=== PATIENT | male | born 1945 | race Caucasian/White ===

== ENCOUNTER → 2017-01-24 | Outpatient (CLI) | payer MEDICARE, OTHER ==
--- NOTE | 2017-01-25 08:14 | XR ---
EXAMINATION TYPE: XR ribs LT w pa chest xray DATE OF EXAM: 01/24/2017 1:58 PM COMPARISON: NONE HISTORY: Pain TECHNIQUE: Single view of the chest 4 views of the ribs are submitted. FINDINGS: Scattered senescent parenchymal changes are noted. No Evidence for pneumothorax. No eviden ce for focal contusion. Mediastinal structures are midline. Evaluation of the ribs fails to demonst rate evidence for displaced rib fracture or secondary sign of rib fracture. IMPRESSION: 1. Chronic parenchymal changes. 2. No evidence for acute displaced left-sided rib fracture.
== END | disposition home or self-care (01) ==
LOC: RADXRYALE 13:33
PROVIDERS: ATTEND Internal Medicine
DX: S23.41XA Sprain of ribs, initial encounter (principal)

== ENCOUNTER → 2017-09-28 | Outpatient (CLI) | payer MEDICARE, OTHER ==
--- NOTE | 2017-09-28 10:37 | XR ---
Bilateral orbits HISTORY: Vertigo, R 42, worked with metal, pre-MRI 3 views of the orbits No radiopaque foreign body evident within the orbits. Bone mineralization is maintained. IMPRESSION: No counterindication to MRI is evident.
--- NOTE | 2017-09-28 11:55 | US ---
EXAMINATION TYPE: US carotid duplex BILAT DATE OF EXAM: 09/28/2017 COMPARISON: NONE CLINICAL HISTORY: R42 VERTIGO. Vertigo EXAM MEASUREMENTS: RIGHT: Peak Systolic Velocity (PSV) cm/sec ----- Right CCA: 88.9 ----- Right ICA: 84.8 ----- Right ECA: 86.2 ICA/CCA ratio: 1.0 RIGHT: End Diastole cm/sec ----- Right CCA: 26.1 ----- Right ICA: 19.5 ----- Right ECA: 15.5 LEFT: Peak Systolic Velocity (PSV) cm/sec ----- Left CCA: 92.9 ----- Left ICA: 82.2 ----- Left ECA: 86.2 ICA/CCA ratio: 0.9 LEFT: End Diastole cm/sec ----- Left CCA: 28.8 ----- Left ICA: 30.2 ----- Left ECA: 14.1 VERTEBRALS (direction of flow): Right Vertebral: Antegrade Left Vertebral: Antegrade Rhythm: Normal Grayscale images show no significant focal plaque in carotid bulbs. Velocity measurements and ratios in visualized portion of both internal carotid arteries is within normal limits. IMPRESSION: No hemodynamically significant stenosis is seen in either internal carotid artery.
--- NOTE | 2017-09-28 16:38 | MR ---
MR brain without contrast HISTORY: Vertigo Multiplanar multisequence imaging through the brain No comparisons There is no restricted diffusion. Cortical atrophy is present. No hemorrhage or hydrocephalus. No mas s effect or midline shift. Periventricular white matter shows confluent and scattered foci of hyperin tensity on inversion recovery and T2-weighted sequences. There are too numerous to count lesions pres ent. Cerebellopontine angles, corpus callosum, pituitary, cervical medullary junction are within norm al limits. Some mild mucoperiosteal thickening suspected within the maxillary and frontal sinuses, et hmoid air cells. There are normal vascular flow voids. Orbits show symmetric appearance. IMPRESSION: Nonspecific white matter demyelination likely due to chronic small vessel ischemic change . Age-related atrophy. Mild sinus disease.
== END | disposition home or self-care (01) ==
LOC: RADMRIMAIN 10:00
PROVIDERS: ATTEND Psychiatry & Neurology Neurology
DX: G31.1 Senile degeneration of brain, not elsewhere classified (principal); R42 Dizziness and giddiness; Z01.818 Encounter for other preprocedural examination
CPT/HCPCS: 70200; 70551; 93880

== ENCOUNTER 2018-01-18 09:13 | Day surgery (SDC) | payer MEDICARE, OTHER ==
[2018-01-12 12:45] VITALS: BMI 27.2
[~2018-01-18 09:13] MED LIST: ALPRAZolam 0.25 MG TAB PO PRN; ALPRAZolam 0.5 MG TAB PO PRN; ATORVASTATIN 80 MG TAB PO STA; NITROGLYCERIN SL TABS 0.4 MG TAB SUBLINGUAL PRN; SODIUM CHLORIDE 0.9% 1,000 ML in EMPTY BAG 1 BAG IV ONE
[2018-01-18 09:50] VITALS: RESP 16; TEMP 98.1
[2018-01-18 10:07] LABS: Basophils % (A) 0 %; Eosinophils # (A) 0.1 k/uL (0-0.7); Eosinophils % (A) 4 %; HCT 37.1 % (39.0-53.0); HGB 12.7 gm/dL (13.0-17.5); Lymphocytes # (A) 0.9 k/uL (1.0-4.8); Lymphocytes % (A) 26 %; MCH 29.2 pg (25.0-35.0); MCHC 34.3 g/dL (31.0-37.0); MCV 85.1 fL (80.0-100.0); Mean Platelet Volume 9.4; Monocytes # (A) 0.3 k/uL (0-1.0); Monocytes % (A) 8 %; Neutrophils % (A) 60 %; Platelet Count 111 k/uL (150-450); RBC 4.36 m/uL (4.30-5.90); RDW 15.5 % (11.5-15.5); WBC 3.4 k/uL (3.8-10.6)
[2018-01-18 10:18] LABS: Anion Gap 10 mmol/L; Blood Urea Nitrogen 19 mg/dL (9-20); Calcium 9.2 mg/dL (8.4-10.2); Carbon Dioxide 24 mmol/L (22-30); Chloride 107 mmol/L (98-107); Glucose 93 mg/dL (74-99); Potassium 4.5 mmol/L (3.5-5.1); Sodium 141 mmol/L (137-145)
[2018-01-18] MEDS ORDERED: LIDOCAINE 2% INJ 20 MG/ML (20 ML MDV) ONE (10:57)
[2018-01-18] MEDS ORDERED: fentaNYL (PF) 50 MCG/ML 2 ML AMP ONE (10:57)
[2018-01-18] MEDS ORDERED: MIDAZOLAM 2 MG/2 ML VIAL ONE (10:57)
[2018-01-18] MEDS ORDERED: MIDAZOLAM 2 MG/2 ML VIAL IVP ONE (11:22)
[2018-01-18] MEDS ORDERED: fentaNYL (PF) 50 MCG/ML 2 ML AMP IVP ONE (11:23)
[2018-01-18] MEDS ORDERED: LIDOCAINE 2% INJ 20 MG/ML SQ ONE (11:25)
[2018-01-18] MEDS ORDERED: IOPAMIDOL-370 50ML BTL INJ ONE (11:39)
[2018-01-18] MEDS ORDERED: IOPAMIDOL-370 125ML BTL INJ ONE (11:39)
[2018-01-18] MEDS ORDERED: RX INFO: IV CONTRAST WAS GIVEN 1 EACH MISC MISCELLANE PRN (11:56)
[2018-01-18] MEDS ORDERED: SODIUM CHLORIDE 0.9% 1,000 ML IV SCH (12:00)
--- NOTE | 2018-01-18 13:38 | CC ---
CARDIAC CATHETERIZATION REPORT Mr. Mast is a 72-year-old gentleman who was seen by Dr. Martines. He was advised cardiac catheterization with the symptoms of chest pain and positive stress test. The patient also has a history of cardiomyopathy. PROCEDURE DETAILS: Right groin was prepped and draped in the usual manner and the skin was infiltrated with 2% Xylocaine. The right femoral artery was entered using Seldinger technique. A #6-Sinhala sheath was placed in. Selective coronary angiography was then performed in multiple projections and the left ventriculography was performed. Patient tolerated the procedure well. HEMODYNAMICS: Left ventricular end-diastolic pressure is 8-10 mmHg prior to angiography. No gradient is noted across the aortic valve. SELECTIVE CORONARY ANGIOGRAPHY: Left main coronary artery is normal and patent. LAD is a good caliber blood vessel and gives rise to 2 small size diagonal branch. LAD and its branches are normal. Circumflex coronary artery is normal. The ostial circumflex coronary artery has about 60% stenosis right near the origin from the left main and it has gotten limited distribution. There is average size ramus branch is noted which is normal. Right coronary artery has mild irregularity and gives rise to the posterior descending artery. Left ventriculography revealed ejection fraction of 45% to 50%. IMPRESSION: There is a 60% stenosis in the ostial circumflex coronary artery with a limited distribution. In view of that, maximum medical treatment is recommended. The LAD and right coronary arteries are normal. Left ventriculography revealed ejection fraction of 40-45%. SEDATION: Moderate sedation was used for 18 minutes. MMODL / IJN: [id number] /
[2018-01-18 16:54] VITALS: BP 106/72; PULSE 62
== END 2018-01-18 17:00 | disposition home or self-care (01) ==
LOC: CATHCVL 09:13
PROVIDERS: ATTEND Internal Medicine Cardiovascular Disease
DX: I25.10 Atherosclerotic heart disease of native coronary artery without angina pectoris (principal); F17.290 Nicotine dependence, other tobacco product, uncomplicated; Z82.49 Family history of ischemic heart disease and other diseases of the circulatory system; Z79.82 Long term (current) use of aspirin; Z79.899 Other long term (current) drug therapy; Z88.1 Allergy status to other antibiotic agents
CPT/HCPCS: 93458; 80048; 85025; C1760; C1894; C1769; J2001; J2250; J3010; Q9967 ×2

== ENCOUNTER → 2018-06-02 | Outpatient (CLI) | payer MEDICARE | END | disposition home or self-care (01) | LOC: LABWHC1 09:17 | PROVIDERS: ATTEND Otolaryngology | DX: H93.3X9 Disorders of unspecified acoustic nerve (principal); H93.19 Tinnitus, unspecified ear; H91.90 Unspecified hearing loss, unspecified ear; H81.49 Vertigo of central origin, unspecified ear | CPT/HCPCS: 36415; 82565; 84520 ==

== ENCOUNTER 2018-06-15 09:15 | Day surgery (SDC) | payer MEDICARE ==
[2018-06-12 14:28] VITALS: BMI 26.5
[~2018-06-15 09:15] MED LIST changes: -ALPRAZolam 0.25 MG TAB PO PRN; -ALPRAZolam 0.5 MG TAB PO PRN; -ATORVASTATIN 80 MG TAB PO STA; -NITROGLYCERIN SL TABS 0.4 MG TAB SUBLINGUAL PRN; +SODIUM CHLORIDE 0.9% 1,000 ML IV SCH; -SODIUM CHLORIDE 0.9% 1,000 ML in EMPTY BAG 1 BAG IV ONE
[2018-06-15 11:26] VITALS: BP 131/75; RESP 16; TEMP 97.6
[2018-06-15] MEDS ORDERED: SODIUM CHLORIDE 0.9% 500 ML IV ONE (11:26)
[2018-06-15 13:03] VITALS: PULSE 60
--- NOTE | 2018-06-15 13:14 | P.PCN ---
Preoperative Diagnosis: Diagnosis Recurrent dizzy spells and presyncope despite reducing the dose of Cardura to 2 mg a day Also on Imdur 30 mg by mouth daily Twelve-lead ECG shows sinus rhythm normal MA narrow QRS normal ST segments heart rate 55 beats a minute His table test Baseline blood pressure 126/73 mmHg Baseline heart rate 54 beats a minute patient was tilted upright at an angle of 70 per protocol. There was an immediate drop in his blood pressure 105/71 mmHg with a mild increase in heart rate in the 76 beats a minute thereafter there was a gradual progressive decline in his blood pressure. The lowest blood pressure recorded was in the mid 70s. No significant change in heart rate. Remained in sinus rhythm in the 70s Very was laid supine his blood pressure increased to 100/59 mmHg heart rate improved went back to his baseline in the mid 50s Impression Orthostatic hypotension syndrome Suggest Reduce Cardura to 1 mg by mouth daily If his symptoms continue Imdur should be discontinued Minimize or avoid vasodilators
== END 2018-06-15 13:54 | disposition home or self-care (01) ==
LOC: CATHEP 09:15
PROVIDERS: ATTEND Internal Medicine Clinical Cardiac Electrophysiology
DX: I95.1 Orthostatic hypotension (principal); R00.1 Bradycardia, unspecified
CPT/HCPCS: 93660

== ENCOUNTER → 2018-06-15 | Outpatient (CLI) | payer MEDICARE | END | disposition home or self-care (01) | LOC: RADMRIMAIN 09:00 | PROVIDERS: ATTEND Otolaryngology | DX: Z53.9 Procedure and treatment not carried out, unspecified reason (principal) ==

== ENCOUNTER → 2018-07-19 | Outpatient (CLI) | payer MEDICARE ==
--- NOTE | 2018-07-19 22:30 | MR ---
EXAMINATION TYPE: MR brain and iac wo/w con DATE OF EXAM: 07/19/2018 COMPARISON: Brain MRI 09/28/2018 HISTORY: 73-year-old male Left Hearing loss / Tinnitus TECHNIQUE: Multiplanar, multisequence images of the brain and brainstem were acquired before and aft er administration of 7.5 mL IV Gadavist. Diffusion weighted imaging was performed. Additional coned -down sequences through the internal auditory canals and posterior cranial fossa before and after IV contrast administration. FINDINGS: Diffusion weighted images demonstrate no evidence of an acute ischemic lesion in the brain. T2/FLAIR weighted sequences redemonstrate moderate burden of patchy bright white matter change within the subcortical, deep, and periventricular regions of both cerebral hemispheres. Midline structures demonstrate partially empty sella but otherwise normal morphology. The craniocerv ical junction is normal. There is redemonstrated mild to moderate generalized cerebral atrophy. The ventricles are of normal c aliber. There is no evidence of an acute intracranial hemorrhage, infarct, mass, mass-effect or an extra-axia l fluid collection. Major intracranial flow voids are intact. There is no cerebellopontine angle mass. The internal auditory canals are symmetric. Brainstem and skull base abnormalities are not seen. Post contrast images demonstrate no evidence of pathologic enhancement in the posterior cranial fossa or the internal auditory canals. There is no abnormal enhancement of the labyrinths. There is mild mucosal thickening within the ethmoid air cells and trace within the remainder of the p aranasal sinuses. Leftward nasal septal deviation. Orbits and globes are intact. IMPRESSION: 1. Mild to moderate cerebral atrophy. Similar chronic T2 bright white matter change with moderate ove rall burden likely related to chronic small vessel ischemic disease. No acute intracranial abnormalit y seen. 2. No specific abnormality on acoustic MRI. 4. Mild chronic pansinus disease.
== END | disposition home or self-care (01) ==
LOC: RADMRIMAIN 09:50
PROVIDERS: ATTEND Otolaryngology
DX: G31.9 Degenerative disease of nervous system, unspecified (principal); R90.89 Other abnormal findings on diagnostic imaging of central nervous system
CPT/HCPCS: 82565; 84520; 70553; 36415; A9585

== ENCOUNTER → 2021-02-04 | Outpatient (CLI) | payer MEDICARE | END | disposition home or self-care (01) | LOC: LABWHC1 16:42 | PROVIDERS: ATTEND Internal Medicine | DX: Z20.822 Contact with and (suspected) exposure to COVID-19 (principal); R50.9 Fever, unspecified; J02.9 Acute pharyngitis, unspecified | CPT/HCPCS: U0003; C9803; U0005 ==

== ENCOUNTER 2021-06-17 10:08 | Day surgery (SDC) | payer MEDICARE ==
[~2021-06-17 10:08] MED LIST changes: +ALPRAZolam 0.25 MG TAB PO PRN; +ALPRAZolam 0.5 MG TAB PO PRN; +ASPIRIN 325 MG TAB PO STA; +ATORVASTATIN 80 MG TAB PO STA; +HEPARIN SODIUM,PORCINE 10,000 UNIT in SODIUM CHLORIDE 0.9% 1,000 ML IRRIGATION PRN; +HEPARIN SODIUM,PORCINE 2,500 UNIT in SODIUM CHLORIDE 0.9% 250 ML IRRIGATION PRN; +NITROGLYCERIN SL TABS 0.4 MG TAB SUBLINGUAL PRN; -SODIUM CHLORIDE 0.9% 1,000 ML IV SCH; +SODIUM CHLORIDE 0.9% 1,000 ML in EMPTY BAG 1 BAG IV ONE
[2021-06-17 10:42] VITALS: RESP 18; TEMP 97.8
[2021-06-17 11:17] LABS: Anisocytosis Slight; HCT 39.5 % (39.0-53.0); HGB 13.8 gm/dL (13.0-17.5); MCH 32.1 pg (25.0-35.0); MCHC 34.8 g/dL (31.0-37.0); MCV 92.3 fL (80.0-100.0); Mean Platelet Volume 9.2; Platelet Count 184 k/uL (150-450); RBC 4.28 m/uL (4.30-5.90); RDW 18.8 % (11.5-15.5); WBC 2.8 k/uL (3.8-10.6)
[2021-06-17 11:30] LABS: African American GFR (CKD) >90 (>60 ml/min/1.73 sqM); Anion Gap 6 mmol/L; Blood Urea Nitrogen 25 mg/dL (9-20); Calcium 9.9 mg/dL (8.4-10.2); Carbon Dioxide 22 mmol/L (22-30); Chloride 106 mmol/L (98-107); Glucose 99 mg/dL (74-99); Non-African American GFR(CKD) 86 (>60 ml/min/1.73 sqM); Sodium 134 mmol/L (137-145)
[2021-06-17 11:40] LABS: Potassium 5.9 mmol/L (3.5-5.1)
[2021-06-17] MEDS ORDERED: MIDAZOLAM 2 MG/2 ML VIAL IVP ONE (11:52)
[2021-06-17] MEDS ORDERED: fentaNYL (PF) 50 MCG/ML 2 ML AMP IVP ONE (11:52)
[2021-06-17] MEDS: LIDOCAINE 1% INJ 10MG/ML (20 ML MDV) SQ ONE ×2 (11:55→12:04)
[2021-06-17] MEDS ORDERED: IOPAMIDOL-370 125ML BTL INJ ONE (12:15)
[2021-06-17] MEDS ORDERED: RX INFO: IV CONTRAST WAS GIVEN 1 EACH MISC MISCELLANE PRN (12:27)
[2021-06-17] MEDS ORDERED: SODIUM CHLORIDE 0.9% 1,000 ML IV SCH (12:30)
--- NOTE | 2021-06-17 12:34 | P.CARDCATH ---
Date of Procedure: 06/17/21 Preoperative Diagnosis: Worsening LV function, cardiomyopathyAnd known ischemic heart disease Postoperative Diagnosis: Data stable coronary artery disease with critical lesion involving the ostium of the circumflex. Description of Procedure: HISTORY:This is a 76-year-old gentleman with history of cardiomyopathy Ischemic heart disease who was in experiencing increasing shortness of breath with evidence of deterioration in LV functionA cardiac catheterization is requested to rule out progression of ischemic cardiac CONSENT:I have discussed the risks, benefits and alternative therapies for the above-mentioned procedure and for both sedation/analgesia as well as necessary blood product administration, if indicated, as they pertain to this patient. The patient has indicated understanding and acceptance of the risks and procedures discussed. PROCEDURE: Patient was brought to the lab in a fasting state. Patient was given some IV sedation. Abdomen soft, to do From the right radial approach. Right radial artery was entered, but the wire could not patient wants. The procedure was abandoned and was performed from the right groin approach. The right groin is infiltrated with lidocaine and right femoral artery was entered using Seldinger technique. A 6-Serbian catheter was left in place and selective coronary arteriography was performed. Patient tolerated the procedure well. Femoral angiogram was performed and Angio-Seal was applied for hemostasis. No immediate complications were noted and patient was transferred to [facility] in a stable condition Conscious Sedation: Versed 1mg Fentanyl 25 g Duration 35minutes HEMODYNAMICS: The aortic pressure is 110/70. Left ventricle end-diastolic pressure 8-10. No gradient across the aortic valve SELECTIVE CORONARY ARTERIOGRAPHY: LEFT MAIN: Normal length and free of occlusive disease THE LEFT ANTERIOR DESCENDING CORONARY ARTERY: Fairly caliber vessel with mild irregularities. It gives rise good-sized diagonal branch and septal branches. No critical lesion noted in the LAD system THE LEFT CIRCUMFLEX AND IS CORONARY ARTERY: Nondominant vessel with stenosis involving the ostium involving the origin of the OM branch also appears to be 70 to 80% and similar to what was in the past. THE RIGHT CORONARY ARTERY: This is a dominant vessel giving rise to good-sized PDA and PLV. Has ectatic areas and irregularities without any significant disease LEFT VENTRICULOGRAPHY: Not performed FINAL IMPRESSION: Stable coronary artery disease with critical lesion involving the ostium of the nondominant circumflex PLAN: Maximum medical therapy and this factor modification PROGNOSIS: Fair
[2021-06-17 12:47] LABS: Eosinophils # (M) 0.08 k/uL (0-0.7); Lymphocytes # (M) 0.76 k/uL (1.0-4.8); Monocytes # (M) 0.39 k/uL (0-1.0); Neutrophils # (M) 1.57 k/uL (1.3-7.7); Neutrophils % (M) 56 %; Nucleated Red Blood Cells 0 /100 WBC (0-0); Total Cells Counted 100
[2021-06-17 16:00] VITALS: BP 104/56; PULSE 58
== END 2021-06-17 17:05 | disposition home or self-care (01) ==
LOC: CATHCVL 10:08
PROVIDERS: ATTEND Internal Medicine Cardiovascular Disease
DX: I25.10 Atherosclerotic heart disease of native coronary artery without angina pectoris (principal)
CPT/HCPCS: 93458; 80048; 85025; 87635; J2250; J2001; J3010; Q9967

== ENCOUNTER 2021-07-22 03:38 | Observation (INO) | payer MEDICARE ==
[2021-07-22] MEDS ORDERED: SODIUM CHLORIDE 0.9% 1,000 ML IV STA (03:56)
[2021-07-22] MEDS ORDERED: IPRATROPIUM-ALBUTEROL 3 ML NEB INHALATION STA ×2 (03:56→06:45)
--- NOTE | 2021-07-22 04:00 | ED ---
SOB HPI - General Chief Complaint: Shortness of Breath Stated Complaint: Flu-like symptoms Time Seen by Provider: 07/22/21 03:43 Source: patient, EMS, old records reviewed Mode of arrival: EMS Limitations: no limitations - History of Present Illness Initial Comments: This is a 76-year-old male to the emergency room today. Patient presents today for evaluation of weakness shortness of breath. Persistent shortness of breath and weakness. Patient has otherwise no recent travel history sick contacts no fever cough or congestion. She also complaining of chest pain MD Complaint: shortness of breath, cough -: hour(s) Radiation: back Severity: moderate Quality: aching Consistency: constant Improves With: nothing Worsens With: coughing Context: recent URI Associated Symptoms: chest pain, cough, sputum production Treatments Prior to Arrival: none - Related Data Home Medications Medication Instructions Recorded Confirmed Aspirin [Adult Low Dose Aspirin EC] 81 mg PO DAILY 01/12/18 06/17/21 Atorvastatin [Lipitor] 20 mg PO DAILY 01/18/18 06/17/21 Citalopram Hydrobromide [CeleXA] 20 mg PO DAILY 01/18/18 06/17/21 Hydrocodone/Acetaminophen 1 each PO BID PRN 01/18/18 06/17/21 [Hydrocodone/Acetaminophen 10-300 mg] Ibuprofen 200 mg PO BID PRN 01/18/18 06/17/21 Isosorbide Mononitrate ER [Imdur] 30 mg PO DAILY 01/18/18 06/17/21 Multivit with Calcium,Iron,Min 1 cap PO DAILY 01/18/18 06/17/21 [Women's Multivitamin] Omeprazole 20 mg PO DAILY 01/18/18 06/17/21 Oxybutynin Chloride [Ditropan] 2 mg PO TID 01/18/18 06/17/21 Doxazosin [Cardura] 1 mg PO DAILY 06/15/18 06/17/21 Meclizine HCl 1 mg PO QID 06/15/18 06/17/21 Allergies Allergy/AdvReac Type Severity Reaction Status Date / Time clarithromycin [From Biaxin] Allergy purple Verified 06/17/21 10:26 blotches and skin peels latex Allergy Itching Verified 07/22/21 03:51 Sulfa (Sulfonamide Allergy Rash/Hives Verified 07/22/21 03:51 Antibiotics) Review of Systems ROS Statement: Those systems with pertinent positive or pertinent negative responses have been documented in the HPI. ROS Other: All systems not noted in ROS Statement are negative. Past Medical History Past Medical History: Hyperlipidemia, Osteoarthritis (OA), Pneumonia Additional Past Medical History / Comment(s): SOB, fatigue recently. Hx pneumonia when 17 yrs old. History of Any Multi-Drug Resistant Organisms: None Reported Additional Past Surgical History / Comment(s): Right arm surgery, colonoscopy. Past Anesthesia/Blood Transfusion Reactions: No Reported Reaction Past Psychological History: Depression Smoking Status: Current every day smoker Past Alcohol Use History: None Reported - Past Family History Mother Family Medical History: No Reported History General Exam Limitations: no limitations General appearance: alert, in no apparent distress Head exam: Present: atraumatic, normocephalic, normal inspection Eye exam: Present: normal appearance, PERRL, EOMI. Absent: scleral icterus, conjunctival injection, periorbital swelling ENT exam: Present: normal exam, mucous membranes moist Neck exam: Present: normal inspection. Absent: tenderness, meningismus, lymphadenopathy Respiratory exam: Present: normal lung sounds bilaterally. Absent: respiratory distress, wheezes, rales, rhonchi, stridor Cardiovascular Exam: Present: regular rate, normal rhythm, normal heart sounds. Absent: systolic murmur, diastolic murmur, rubs, gallop, clicks GI/Abdominal exam: Present: soft, normal bowel sounds. Absent: distended, tenderness, guarding, rebound, rigid Extremities exam: Present: normal inspection, full ROM, normal capillary refill. Absent: tenderness, pedal edema, joint swelling, calf tenderness Back exam: Present: normal inspection Neurological exam: Present: alert, oriented X3, CN II-XII intact Psychiatric exam: Present: normal affect, normal mood Skin exam: Present: warm, dry, intact, normal color. Absent: rash Course Vital Signs 07/22/21 07/22/21 07/22/21 03:48 04:10 04:50 Temperature 98.2 F Pulse Rate 82 77 Respiratory 20 25 H 18 Rate Blood Pressure 100/60 106/66 O2 Sat by Pulse 91 L 97 Oximetry 07/22/21 07/22/21 07/22/21 05:25 05:36 06:00 Temperature Pulse Rate 82 82 73 Respiratory 18 Rate Blood Pressure 101/63 O2 Sat by Pulse 92 L Oximetry - Reevaluation(s) Reevaluation #1: 07/22/21 04:06 Medical record is reviewed Reevaluation #2: 07/22/21 06:49 Patient's oxygen is worsened in the ER stay, Reevaluation #3: 07/22/21 06:49 Patient's breathing continues to worsen is borderline here in the emergency department Reevaluation #4: 07/22/21 06:49 Patient for antibiotics and breathing treatments as needed, still no care Medical Decision Making - Medical Decision Making 76 male DF for evaluation of shortness of breath history of pneumonia possible early pneumonia with multiple CBC abnormalities. Patient was admitted place on IV antibiotics repeat chest x-ray monitoring of pulse ox - Lab Data Result diagrams: 07/22/21 04:04 07/22/21 04:04 Lab Results 07/22/21 07/22/21 07/22/21 Range/Units 04:04 04:04 04:04 WBC 2.3 L (3.8-10.6) k/uL RBC 3.68 L (4.30-5.90) m/uL Hgb 11.7 L (13.0-17.5) gm/dL Hct 33.5 L (39.0-53.0) % MCV 90.9 (80.0-100.0) fL MCH 31.8 (25.0-35.0) pg MCHC 34.9 (31.0-37.0) g/dL RDW 18.8 H (11.5-15.5) % Plt Count 189 (150-450) k/uL MPV 8.5 Neutrophils % (Manual) 45 % Band Neuts % (Manual) 3 % Lymphocytes % (Manual) 35 % Monocytes % (Manual) 11 % Eosinophils % (Manual) 6 % Metamyelocytes % 1 % Neutrophils # (Manual) 1.10 L (1.3-7.7) k/uL Lymphocytes # (Manual) 0.81 L (1.0-4.8) k/uL Monocytes # (Manual) 0.25 (0-1.0) k/uL Eosinophils # (Manual) 0.14 (0-0.7) k/uL Metamyelocytes # (Man) 0.02 H (0) k/uL Nucleated RBCs 0 (0-0) /100 WBC Differential Comment Manual Slide Review Performed Toxic Granulation Present Hyperchromasia Slight Poikilocytosis Slight Poikilocytosis (manual Present Anisocytosis Slight Anisocytosis (manual) Present Ovalocytes Present Fragmented RBCs Present PT 10.1 (9.0-12.0) sec INR 0.9 (<1.2) APTT 25.3 (22.0-30.0) sec Sodium 136 L (137-145) mmol/L Potassium 4.0 (3.5-5.1) mmol/L Chloride 104 (98-107) mmol/L Carbon Dioxide 21 L (22-30) mmol/L Anion Gap 11 mmol/L BUN 13 (9-20) mg/dL Creatinine 0.84 (0.66-1.25) mg/dL Est GFR (CKD-EPI)AfAm >90 (>60 ml/min/1.73 sqM) Est GFR (CKD-EPI)NonAf 86 (>60 ml/min/1.73 sqM) Glucose 126 H (74-99) mg/dL Plasma Lactic Acid Abner (0.7-2.0) mmol/L Calcium 9.1 (8.4-10.2) mg/dL Magnesium 2.1 (1.6-2.3) mg/dL Total Bilirubin 0.4 (0.2-1.3) mg/dL AST 30 (17-59) U/L ALT 19 (4-49) U/L Alkaline Phosphatase 96 (38-126) U/L Lactate Dehydrogenase 630 H (313-618) U/L Troponin I (0.000-0.034) ng/mL C-Reactive Protein 1.9 H (<1.0) mg/dL NT-Pro-B Natriuret Pep pg/mL Total Protein 6.6 (6.3-8.2) g/dL Albumin 3.8 (3.5-5.0) g/dL 07/22/21 07/22/21 07/22/21 Range/Units 04:04 04:04 05:19 WBC (3.8-10.6) k/uL RBC (4.30-5.90) m/uL Hgb (13.0-17.5) gm/dL Hct (39.0-53.0) % MCV (80.0-100.0) fL MCH (25.0-35.0) pg MCHC (31.0-37.0) g/dL RDW (11.5-15.5) % Plt Count (150-450) k/uL MPV Neutrophils % (Manual) % Band Neuts % (Manual) % Lymphocytes % (Manual) % Monocytes % (Manual) % Eosinophils % (Manual) % Metamyelocytes % % Neutrophils # (Manual) (1.3-7.7) k/uL Lymphocytes # (Manual) (1.0-4.8) k/uL Monocytes # (Manual) (0-1.0) k/uL Eosinophils # (Manual) (0-0.7) k/uL Metamyelocytes # (Man) (0) k/uL Nucleated RBCs (0-0) /100 WBC Differential Comment Manual Slide Review Toxic Granulation Hyperchromasia Poikilocytosis Poikilocytosis (manual Anisocytosis Anisocytosis (manual) Ovalocytes Fragmented RBCs PT (9.0-12.0) sec INR (<1.2) APTT (22.0-30.0) sec Sodium (137-145) mmol/L Potassium (3.5-5.1) mmol/L Chloride (98-107) mmol/L Carbon Dioxide (22-30) mmol/L Anion Gap mmol/L BUN (9-20) mg/dL Creatinine (0.66-1.25) mg/dL Est GFR (CKD-EPI)AfAm (>60 ml/min/1.73 sqM) Est GFR (CKD-EPI)NonAf (>60 ml/min/1.73 sqM) Glucose (74-99) mg/dL Plasma Lactic Acid Abner 1.2 (0.7-2.0) mmol/L Calcium (8.4-10.2) mg/dL Magnesium (1.6-2.3) mg/dL Total Bilirubin (0.2-1.3) mg/dL AST (17-59) U/L ALT (4-49) U/L Alkaline Phosphatase (38-126) U/L Lactate Dehydrogenase (313-618) U/L Troponin I <0.012 (0.000-0.034) ng/mL C-Reactive Protein (<1.0) mg/dL NT-Pro-B Natriuret Pep 171 pg/mL Total Protein (6.3-8.2) g/dL Albumin (3.5-5.0) g/dL - EKG Data -: EKG Interpreted by Me (EKG shows sinus rhythm of 77. 136 QRS 94 QTC 45) - Radiology Data Radiology results: report reviewed (Chest x-ray shows atelectasis hard to tell of early developing pneumonia), image reviewed Disposition Clinical Impression: Weakness, Dehydration Disposition: ADMITTED IP TO THIS [facility] Condition: Fair Is patient prescribed a controlled substance at d/c from ED?: No Referrals: Keri Ley DO [Primary Care Provider] - 1-2 days
--- NOTE | 2021-07-22 04:20 | XR ---
EXAMINATION TYPE: XR chest 1V portable DATE OF EXAM: 07/22/2021 COMPARISON: 01/24/2017 HISTORY: Short of breath TECHNIQUE: FINDINGS: There is some mild atelectasis at both lung bases. Heart size is normal. There is no heart failure. There is poor inspiration. There are chest leads. IMPRESSION: There is some mild atelectasis at the lung bases increased compared to old exam.
[2021-07-22 04:36] LABS: Anisocytosis Slight; HCT 33.5 % (39.0-53.0); HGB 11.7 gm/dL (13.0-17.5); Hyperchromasia Slight; MCH 31.8 pg (25.0-35.0); MCHC 34.9 g/dL (31.0-37.0); MCV 90.9 fL (80.0-100.0); Mean Platelet Volume 8.5; Platelet Count 189 k/uL (150-450); Poikilocytosis Slight; RBC 3.68 m/uL (4.30-5.90); RDW 18.8 % (11.5-15.5); WBC 2.3 k/uL (3.8-10.6)
[2021-07-22 04:37] LABS: INR 0.9 (<1.2)
[2021-07-22 04:38] LABS: Partial Thromboplastin Time 25.3 sec (22.0-30.0); Prothrombin Time 10.1 sec (9.0-12.0)
[2021-07-22 04:43] LABS: ALT 19 U/L (4-49); AST 30 U/L (17-59); African American GFR (CKD) >90 (>60 ml/min/1.73 sqM); Albumin 3.8 g/dL (3.5-5.0); Alkaline Phosphatase 96 U/L (38-126); Anion Gap 11 mmol/L; Blood Urea Nitrogen 13 mg/dL (9-20); C Reactive Protein 1.9 mg/dL (<1.0); Calcium 9.1 mg/dL (8.4-10.2); Carbon Dioxide 21 mmol/L (22-30); Chloride 104 mmol/L (98-107); Glucose 126 mg/dL (74-99); LDH 630 U/L (313-618); Magnesium 2.1 mg/dL (1.6-2.3); Non-African American GFR(CKD) 86 (>60 ml/min/1.73 sqM); Sodium 136 mmol/L (137-145); Total Bilirubin 0.4 mg/dL (0.2-1.3); Total Protein 6.6 g/dL (6.3-8.2)
[2021-07-22 04:59] LABS: Band Neutrophils % 3 %; Eosinophils # (M) 0.14 k/uL (0-0.7); Lymphocytes # (M) 0.81 k/uL (1.0-4.8); Metamyelocytes # (M) 0.02 k/uL (0); Metamyelocytes % 1 %; Monocytes # (M) 0.25 k/uL (0-1.0); Neutrophils % (M) 45 %; Nucleated Red Blood Cells 0 /100 WBC (0-0); Total Cells Counted 200
[2021-07-22 05:03] LABS: Anisocytosis (M) Present; Ovalocytes Present; Poikilocytosis (M) Present; RBC Fragments Present
[2021-07-22 05:04] LABS: Toxic Granulation Present
[2021-07-22] MEDS ORDERED: ACETAMINOPHEN TAB 325 MG TAB PO PRN (06:45)
[2021-07-22] MEDS ORDERED: MORPHINE SULFATE 4 MG/ML SYRINGE IV PRN (06:45)
[2021-07-22] MEDS ORDERED: NALOXONE 0.4 MG/ML 1 ML VIAL IV PRN (06:45)
[2021-07-22] MEDS ORDERED: ONDANSETRON 4 MG/2 ML VIAL IVP PRN (06:45)
[2021-07-22] MEDS ORDERED: cefTRIAXone IN SWFI 1,000 MG/10 ML SYRINGE IVP STA (06:47)
[2021-07-22] MEDS ORDERED: LEVOFLOXACIN 500MG-D5W PMX 500 MG in DEXTROSE/WATER 1 100ML.BAG IVPB STA (06:48)
[2021-07-22] MEDS: SODIUM CHLORIDE 0.9% 1,000 ML IV SCH ×3 (07:16→21:09)
[2021-07-22] MEDS: IPRATROPIUM-ALBUTEROL 3 ML NEB INHALATION PRN ×3 (11:28→20:53)
[2021-07-22] MEDS: PANTOPRAZOLE 40 MG TABLET PO SCH (14:00)
[2021-07-22] MEDS ORDERED: methylPREDNISolone SOD SUCCI 125 MG/2 ML VIAL IV STA (15:22)
[2021-07-22] MEDS: HEPARIN SODIUM,PORCINE/PF 5,000 UNIT/0.5 ML SYRINGE SQ SCH ×2 (16:48→23:46)
[2021-07-22] MEDS: DOXYCYCLINE 100 MG CAP PO SCH ×2 (16:49→20:30)
[2021-07-22] MEDS: OXYBUTYNIN CHLORIDE 5 MG TAB PO SCH (20:30)
[2021-07-22] MEDS: DOXAZOSIN 2 MG TAB PO SCH (20:30)
--- NOTE | 2021-07-22 22:41 | P.HPIM ---
History of Present Illness H&P Date: 07/22/21 Chief Complaint: Shortness of breath Patient is a 76-year-old male with known history of hyperlipidemia, osteoarthritis, depression and currently everyday smoker/chewing tobacco presents to ER with complaints of worsening shortness of breath, cough and congestion for the past 2 weeks. Initially started with cough with thick yellow sputum production and chest congestion. Patient has been having persistent shortness of breath and generalized weakness which made him to come to ER.. Denies any nausea vomiting abdominal pain or diarrhea. On admission blood pressure 100/60 heart rate 82 respiration 20-25 and pulse ox 91% on room air. Chest x-ray showed there is some mild atelectasis at the lung bases increased compared to old exam. EKG showed unusual P axis possible ectopic atrial rhythm, low voltage QRS. Laboratory showed sodium 136 potassium 4.0 chloride 104 bicarb 21 BUN 13 and creatinine 0.84 LDH 630, CRP 1.9 and proBNP 171 Coronavirus PCR not detected. WBC 2.3 hemoglobin 11.7 RDW 18.8 and platelets 189, lymphocytes 0.81 Review of Systems Constitutional: Patient denies any fever or chills . Generalized weakness and fatigue.. Abdomen: Patient denied nausea vomiting and diarrhea and abdominal pain. Cardiovascular: Patient denies any chest pain or short of breath no palpitations. Respiratory: Patient does have cough, yellow sputum production and shortness of breath. Neurologic: Patient denied any numbness or tingling headache. Musculoskeletal: Patient denies any complaints of joint swelling or deformity. Skin: Negative Psychiatric: Negative Endocrine: No heat or cold intolerance. No recent weight gain. Genitourinary: No dysuria or hematuria. All other 14 point ROS negative except the above Past Medical History Past Medical History: Hyperlipidemia, Osteoarthritis (OA), Pneumonia Additional Past Medical History / Comment(s): SOB, fatigue recently. Hx pneumonia when 17 yrs old. History of Any Multi-Drug Resistant Organisms: None Reported Additional Past Surgical History / Comment(s): Right arm surgery, colonoscopy. Past Anesthesia/Blood Transfusion Reactions: No Reported Reaction Past Psychological History: Depression Smoking Status: Current every day smoker Past Alcohol Use History: None Reported - Past Family History Mother Family Medical History: No Reported History Medications and Allergies Home Medications Medication Instructions Recorded Confirmed Type Aspirin [Adult Low Dose Aspirin EC] 81 mg PO DAILY 01/12/18 07/22/21 History Citalopram Hydrobromide [CeleXA] 20 mg PO DAILY 01/18/18 07/22/21 History Ibuprofen 200 mg PO Q6H PRN 01/18/18 07/22/21 History Omeprazole 20 mg PO DAILY 01/18/18 07/22/21 History Oxybutynin Chloride [Ditropan] 5 mg PO BID 01/18/18 07/22/21 History Carvedilol [Coreg] 3.125 mg PO BID 07/22/21 07/22/21 History Doxazosin [Cardura] 2 mg PO HS 07/22/21 07/22/21 History HYDROcodone/APAP 10-325MG [[place] 1 tab PO BID 07/22/21 07/22/21 History 10-325] Magnesium Oxide [Mag-Ox] 400 mg PO DAILY 07/22/21 07/22/21 History Meclizine [Antivert] 25 mg PO Q6H PRN 07/22/21 07/22/21 History Multivitamins, Thera [Multivitamin 1 tab PO DAILY 07/22/21 07/22/21 History (formulary)] Rosuvastatin Calcium [Crestor] 5 mg PO DAILY 07/22/21 07/22/21 History Spironolactone 12.5 mg PO DAILY 07/22/21 07/22/21 History lisinopriL [Zestril] 5 mg PO DAILY 07/22/21 07/22/21 History Allergies Allergy/AdvReac Type Severity Reaction Status Date / Time clarithromycin [From Biaxin] Allergy purple Verified 07/22/21 07:14 blotches and skin peels latex Allergy Itching Verified 07/22/21 07:14 Sulfa (Sulfonamide Allergy Rash/Hives Verified 07/22/21 07:14 Antibiotics) Physical Exam Vitals: Vital Signs Temp Pulse Resp BP Pulse Ox 07/22/21 11:37 80 18 07/22/21 11:28 78 18 07/22/21 10:24 98 F 81 20 105/68 93 L 07/22/21 08:37 86 22 07/22/21 08:29 77 22 07/22/21 07:52 98.5 F 89 20 109/72 93 L 07/22/21 06:00 73 18 101/63 92 L 07/22/21 05:36 82 07/22/21 05:25 82 07/22/21 04:50 77 18 106/66 97 07/22/21 04:10 25 H 07/22/21 03:48 98.2 F 82 20 100/60 91 L Intake and Output 07/21/21 07/22/21 07/22/21 22:59 06:59 14:59 Other: Weight 77.111 kg PHYSICAL EXAMINATION: Patient is lying in the bed comfortably, no acute distress, awake alert and oriented.. HEENT: Normocephalic. Neck is supple. Pupils reactive. Nostrils clear. Oral cavity is moist. Neck reveals no JVD, carotid bruits, or thyromegaly. CHEST EXAMINATION: Trachea is central. Symmetrical expansion. Patient does have bilateral diminished sounds and scattered rhonchi.. CARDIAC: Normal S1, S2 with no gallops. No murmurs ABDOMEN: Soft. Bowel sounds normal. No organomegaly. No abdominal bruits. Extremities: reveal no edema. No clubbing or cyanosis Neurologically awake, alert, oriented x3 with well-coordinated movements. No focal deficits noted Skin: No rash or skin lesions. Psychiatric: Cooperative. Nonsuicidal Musculoskeletal: No joint swelling or deformity. Normal range of motion. Results CBC & Chem 7: 07/22/21 04:04 07/22/21 04:04 Labs: Abnormal Lab Results - Last 24 Hours (Table) 07/22/21 07/22/21 Range/Units 04:04 04:04 WBC 2.3 L (3.8-10.6) k/uL RBC 3.68 L (4.30-5.90) m/uL Hgb 11.7 L (13.0-17.5) gm/dL Hct 33.5 L (39.0-53.0) % RDW 18.8 H (11.5-15.5) % Neutrophils # (Manual) 1.10 L (1.3-7.7) k/uL Lymphocytes # (Manual) 0.81 L (1.0-4.8) k/uL Metamyelocytes # (Man) 0.02 H (0) k/uL Sodium 136 L (137-145) mmol/L Carbon Dioxide 21 L (22-30) mmol/L Glucose 126 H (74-99) mg/dL Lactate Dehydrogenase 630 H (313-618) U/L C-Reactive Protein 1.9 H (<1.0) mg/dL Thrombosis Risk Factor Assmnt - DVT/VTE Prophylaxis DVT/VTE Prophylaxis: Pharmacologic Prophylaxis ordered Assessment and Plan Assessment: Shortness of breath secondary to acute COPD exacerbation Acute tracheobronchitis and possible pneumonia Neutropenia Elevated LDH and CRP levels. COVID-19 PCR not detected. Hyperlipidemia Osteoarthritis Depression Currently everyday smoker DVT prophylaxis with heparin subcu. Plan: Patient will be continued on gentle IV hydration and antibiotics in the form of ceftriaxone and doxycycline. Patient was given a dose of Levaquin in the ER. Started on Solu-Medrol 60 mg every 6 hourly and DuoNeb's will be continued. Repeat CBC and BMP tomorrow. Continue with home medications. Follow-up closely. Smoking cessation/tobacco chewing has been counseled extensively. Time with Patient: Greater than 30
[2021-07-22] MEDS: methylPREDNISolone SOD SUCCI 125 MG/2 ML VIAL IV SCH (23:47)
[2021-07-23] MEDS: methylPREDNISolone SOD SUCCI 125 MG/2 ML VIAL IV SCH ×3 (05:47→17:44)
[2021-07-23] MEDS: IPRATROPIUM-ALBUTEROL 3 ML NEB INHALATION PRN ×3 (07:00→15:32)
[2021-07-23 08:15] LABS: ALT 21 U/L (4-49); AST 28 U/L (17-59); African American GFR (CKD) >90 (>60 ml/min/1.73 sqM); Albumin 3.7 g/dL (3.5-5.0); Alkaline Phosphatase 114 U/L (38-126); Anion Gap 9 mmol/L; Blood Urea Nitrogen 17 mg/dL (9-20); Calcium 9.4 mg/dL (8.4-10.2); Carbon Dioxide 23 mmol/L (22-30); Chloride 104 mmol/L (98-107); Glucose 152 mg/dL (74-99); Non-African American GFR(CKD) >90 (>60 ml/min/1.73 sqM); Sodium 136 mmol/L (137-145); Total Bilirubin 0.5 mg/dL (0.2-1.3); Total Protein 6.6 g/dL (6.3-8.2)
[2021-07-23] MEDS: HEPARIN SODIUM,PORCINE/PF 5,000 UNIT/0.5 ML SYRINGE SQ SCH ×2 (08:32→15:31)
[2021-07-23] MEDS: PANTOPRAZOLE 40 MG TABLET PO SCH (08:33)
[2021-07-23] MEDS: ATORVASTATIN 10 MG TAB PO SCH (08:33)
[2021-07-23] MEDS: CITALOPRAM HYDROBROMIDE 20 MG TAB PO SCH (08:33)
[2021-07-23] MEDS: ASPIRIN 81 MG PO SCH (08:33)
[2021-07-23] MEDS: DOXYCYCLINE 100 MG CAP PO SCH ×2 (08:33→21:08)
[2021-07-23] MEDS: OXYBUTYNIN CHLORIDE 5 MG TAB PO SCH ×2 (08:33→21:08)
[2021-07-23 08:51] LABS: Anisocytosis Slight; Basophils % (A) 0 %; Eosinophils % (A) 0 %; HGB 12.7 gm/dL (13.0-17.5); Lymphocytes # (A) 0.4 k/uL (1.0-4.8); Lymphocytes % (A) 16 %; MCH 32.1 pg (25.0-35.0); MCHC 34.4 g/dL (31.0-37.0); MCV 93.4 fL (80.0-100.0); Monocytes % (A) 1 %; Neutrophils # (A) 1.9 k/uL (1.3-7.7); Neutrophils % (A) 81 %; Platelet Count 179 k/uL (150-450); Poikilocytosis Slight; RBC 3.96 m/uL (4.30-5.90); WBC 2.3 k/uL (3.8-10.6)
[2021-07-23] MEDS ORDERED: predniSONE 20 MG TAB PO SCH (09:00)
--- NOTE | 2021-07-23 13:56 | P.EN ---
Patient has history of chronic obstructive pulmonary disease. An oxygen evaluation test was performed and patient will require oxygen upon discharge at 2 L via nasal cannula secondary to shortness of breath from his COPD. Prescription was provided to case management.
[2021-07-23] MEDS: DOXAZOSIN 2 MG TAB PO SCH (21:08)
[2021-07-24] MEDS: HEPARIN SODIUM,PORCINE/PF 5,000 UNIT/0.5 ML SYRINGE SQ SCH ×2 (00:08→07:31)
[2021-07-24] MEDS: methylPREDNISolone SOD SUCCI 125 MG/2 ML VIAL IV SCH ×3 (00:08→11:22)
[2021-07-24] MEDS: ASPIRIN 81 MG PO SCH (07:30)
[2021-07-24] MEDS: PANTOPRAZOLE 40 MG TABLET PO SCH (07:30)
[2021-07-24] MEDS: DOXYCYCLINE 100 MG CAP PO SCH (07:30)
[2021-07-24] MEDS: CITALOPRAM HYDROBROMIDE 20 MG TAB PO SCH (07:30)
[2021-07-24] MEDS: ATORVASTATIN 10 MG TAB PO SCH (07:30)
[2021-07-24 08:29] VITALS: BP 110/50; TEMP 97.8
[2021-07-24 08:50] VITALS: RESP 16
[2021-07-24] MEDS: IPRATROPIUM-ALBUTEROL 3 ML NEB INHALATION PRN ×2 (09:03→11:50)
[2021-07-24 09:20] VITALS: PULSE 80
[2021-07-24] MEDS: OXYBUTYNIN CHLORIDE 5 MG TAB PO SCH (11:18)
--- NOTE | 2021-07-24 23:51 | P.PN ---
Subjective Progress Note Date: 07/23/21 Principal diagnosis: Shortness of breath secondary to acute COPD exacerbation Patient is a 76-year-old male with known history of hyperlipidemia, osteoarthritis, depression and currently everyday smoker/chewing tobacco presents to ER with complaints of worsening shortness of breath, cough and congestion for the past 2 weeks. Initially started with cough with thick yellow sputum production and chest congestion. Patient has been having persistent shortness of breath and generalized weakness which made him to come to ER.. Denies any nausea vomiting abdominal pain or diarrhea. On admission blood pressure 100/60 heart rate 82 respiration 20-25 and pulse ox 91% on room air. Chest x-ray showed there is some mild atelectasis at the lung bases increased compared to old exam. EKG showed unusual P axis possible ectopic atrial rhythm, low voltage QRS. Laboratory showed sodium 136 potassium 4.0 chloride 104 bicarb 21 BUN 13 and creatinine 0.84 LDH 630, CRP 1.9 and proBNP 171 Coronavirus PCR not detected. WBC 2.3 hemoglobin 11.7 RDW 18.8 and platelets 189, lymphocytes 0.81 07/23/2021 Patient is currently in the observation unit. Awake alert and oriented. Still having wheezing on examination but air entry improved compared to yesterday. Exertional dyspnea and patient is requiring oxygen at 2 L via nasal cannula. Patient is being continued on IV steroids, duo nebs and antibiotics in the form of doxycycline. Laboratory data showed WBC 2.3 hemoglobin 12.7 platelets 179 BUN 17 and creatinine 0.71 and blood sugar is 152 liver enzymes are not elevated procalcitonin level is 0.03 Anticipate discharge in next 24 hours with more clinical improvement. Patient will need home oxygen. Current medications reviewed. Objective - Vital Signs Vital signs: Vital Signs Temp 97.8 F 07/24/21 07:00 Pulse 80 07/24/21 12:07 Resp 16 07/24/21 08:00 BP 110/50 07/24/21 07:00 Pulse Ox 94 L 07/24/21 07:00 Intake & Output 07/24/21 07/24/21 07/25/21 06:59 18:59 06:59 Intake Total 1100 Output Total 700 450 Balance 400 -450 Intake: Oral 1100 Output: Urine 700 450 Other: Voiding Method Toilet Urinal # Voids 1 - Exam PHYSICAL EXAMINATION: Patient is lying in the bed comfortably, no acute distress, awake alert and oriented.. HEENT: Normocephalic. Neck is supple. Pupils reactive. Nostrils clear. Oral cavity is moist. Neck reveals no JVD, carotid bruits, or thyromegaly. CHEST EXAMINATION: Trachea is central. Symmetrical expansion. Expiratory wheezing. Nonlabored breathing. Scattered rhonchi... CARDIAC: Normal S1, S2 with no gallops. No murmurs ABDOMEN: Soft. Bowel sounds normal. No organomegaly. No abdominal bruits. Extremities: reveal no edema. No clubbing or cyanosis Neurologically awake, alert, oriented x3 with well-coordinated movements. No focal deficits noted Skin: No rash or skin lesions. Psychiatric: Cooperative. Nonsuicidal Musculoskeletal: No joint swelling or deformity. Normal range of motion. - Labs CBC & Chem 7: 07/23/21 07:23 07/23/21 07:23 Assessment and Plan Assessment: Shortness of breath secondary to acute COPD exacerbation Acute tracheobronchitis and possible pneumonia Neutropenia Elevated LDH and CRP levels. COVID-19 PCR not detected. Hyperlipidemia Osteoarthritis Depression Currently everyday smoker DVT prophylaxis with heparin subcu. Plan: Patient will be continued on gentle IV hydration and antibiotics in the form of ceftriaxone and doxycycline. Patient was given a dose of Levaquin in the ER. Started on Solu-Medrol 60 mg every 6 hourly and DuoNeb's will be continued. Continue with home medications. Follow-up closely.Continue with oxygen supplementation. Smoking cessation/tobacco chewing has been counseled extensively. Time with Patient: Greater than 30
--- NOTE | 2021-07-30 03:29 | P.DS ---
Providers Date of admission: 07/22/21 06:45 Expected date of discharge: 07/24/21 Attending physician: Jose Obrien MD Primary care physician: Keri eLy Hospital Course: Final Diagnosis Shortness of breath secondary to acute COPD exacerbation Acute tracheobronchitis and possible pneumonia Neutropenia Elevated LDH and CRP levels. COVID-19 PCR not detected. Hyperlipidemia Osteoarthritis Depression Currently everyday smoker DVT prophylaxis Discharge disposition Patient is being discharged in a stable condition with guarded prognosis to home. Patient will follow-up with Dr. Keri Ley in the outpatient setting upon discharge. Patient is to follow-up with pulmonary in the outpatient setting . Patient to continue with prednisone taper and oral doxycycline to complete the course. Total time taken is greater than 35 minutes. Hospital course Patient is a 76-year-old male with known history of hyperlipidemia, osteoarthritis, depression and currently everyday smoker/chewing tobacco presents to ER with complaints of worsening shortness of breath, cough and congestion for the past 2 weeks. Initially started with cough with thick yellow sputum production and chest congestion. Patient has been having persistent shortness of breath and generalized weakness which made him to come to ER.. Denies any nausea vomiting abdominal pain or diarrhea. On admission blood pressure 100/60 heart rate 82 respiration 20-25 and pulse ox 91% on room air. Chest x-ray showed there is some mild atelectasis at the lung bases increased compared to old exam. EKG showed unusual P axis possible ectopic atrial rhythm, low voltage QRS. Laboratory showed sodium 136 potassium 4.0 chloride 104 bicarb 21 BUN 13 and creatinine 0.84 LDH 630, CRP 1.9 and proBNP 171 Coronavirus PCR not detected. WBC 2.3 hemoglobin 11.7 RDW 18.8 and platelets 189, lymphocytes 0.81 07/23/2021 Patient is currently in the observation unit. Awake alert and oriented. Still having wheezing on examination but air entry improved compared to yesterday. Exertional dyspnea and patient is requiring oxygen at 2 L via nasal cannula. Patient is being continued on IV steroids, duo nebs and antibiotics in the form of doxycycline. Laboratory data showed WBC 2.3 hemoglobin 12.7 platelets 179 BUN 17 and creatinine 0.71 and blood sugar is 152 liver enzymes are not elevated procalcitonin level is 0.03 Anticipate discharge in next 24 hours with more clinical improvement. Patient will need home oxygen. 07/24/2021 Patient is seen in follow up this morning . Patient was evaluated by pulmonary and recommending outpatient follow up with Dr. Stone on discharge. Patient requiring oxygen at 2L secondary to COPD. Currently no reports of chest pain, worsening shortness of breath, or palpitations. Patient is afebrile. No reports of nausea or vomiting and patient is tolerating diet. Patient will be discharged home today. Patient is sitting up in the bed comfortably, no acute distress, awake alert and oriented.. HEENT: Normocephalic. Neck is supple. Pupils reactive. Nostrils clear. Oral cavity is moist. Neck reveals no JVD, carotid bruits, or thyromegaly. CHEST EXAMINATION: Trachea is central. Symmetrical expansion. Diminished breath sounds bilaterally with some mild wheezing noted on expiration. CARDIAC: Normal S1, S2 with no gallops. No murmurs ABDOMEN: Soft. Bowel sounds normal. No organomegaly. No abdominal bruits. Extremities: reveal no edema. No clubbing or cyanosis Neurologically awake, alert, oriented x3 with well-coordinated movements. No focal deficits noted Skin: No rash or skin lesions. Psychiatric: Cooperative. Non-suicidal Musculoskeletal: No joint swelling or deformity. Normal range of motion. Please refer to medication reconciliation sheet for a list of medications. Patient Condition at Discharge: Fair Plan - Discharge Summary Discharge Rx Participant: No New Discharge Prescriptions: New guaiFENesin [Mucinex] 600 mg PO BID 7 Days #14 tab predniSONE 10 mg PO DIRECTED #30 tab Albuterol Inhaler [Ventolin Hfa Inhaler] 1 puff INHALATION RT-QID #8 gm Doxycycline [Vibramycin] 100 mg PO BID 5 Days #10 cap Ipratropium-Albuterol Nebulize [Duoneb 0.5 mg-3 mg/3 ml Soln] 3 ml INHALATION RT-QID PRN #120 ml PRN Reason: Shortness Of Breath Or Wheezing Continue Aspirin [Adult Low Dose Aspirin EC] 81 mg PO DAILY Oxybutynin Chloride [Ditropan] 5 mg PO BID Citalopram Hydrobromide [CeleXA] 20 mg PO DAILY Omeprazole 20 mg PO DAILY Ibuprofen 200 mg PO Q6H PRN PRN Reason: Mild To Moderate Pain HYDROcodone/APAP 10-325MG [[place] 10-325] 1 tab PO BID Magnesium Oxide [Mag-Ox] 400 mg PO DAILY Rosuvastatin Calcium [Crestor] 5 mg PO DAILY Multivitamins, Thera [Multivitamin (formulary)] 1 tab PO DAILY Meclizine [Antivert] 25 mg PO Q6H PRN PRN Reason: Vertigo Doxazosin [Cardura] 2 mg PO HS Discontinued Spironolactone 12.5 mg PO DAILY lisinopriL [Zestril] 5 mg PO DAILY Carvedilol [Coreg] 3.125 mg PO BID Discharge Medication List Aspirin [Adult Low Dose Aspirin EC] 81 mg PO DAILY 01/12/18 [History] Citalopram Hydrobromide [CeleXA] 20 mg PO DAILY 01/18/18 [History] Ibuprofen 200 mg PO Q6H PRN 01/18/18 [History] Omeprazole 20 mg PO DAILY 01/18/18 [History] Oxybutynin Chloride [Ditropan] 5 mg PO BID 01/18/18 [History] Doxazosin [Cardura] 2 mg PO HS 07/22/21 [History] HYDROcodone/APAP 10-325MG [[place] 10-325] 1 tab PO BID 07/22/21 [History] Magnesium Oxide [Mag-Ox] 400 mg PO DAILY 07/22/21 [History] Meclizine [Antivert] 25 mg PO Q6H PRN 07/22/21 [History] Multivitamins, Thera [Multivitamin (formulary)] 1 tab PO DAILY 07/22/21 [History] Rosuvastatin Calcium [Crestor] 5 mg PO DAILY 07/22/21 [History] Albuterol Inhaler [Ventolin Hfa Inhaler] 1 puff INHALATION RT-QID #8 gm 07/24/21 [Rx] Doxycycline [Vibramycin] 100 mg PO BID 5 Days #10 cap 07/24/21 [Rx] Ipratropium-Albuterol Nebulize [Duoneb 0.5 mg-3 mg/3 ml Soln] 3 ml INHALATION RT-QID PRN #120 ml 07/24/21 [Rx] guaiFENesin [Mucinex] 600 mg PO BID 7 Days #14 tab 07/24/21 [Rx] predniSONE 10 mg PO DIRECTED #30 tab 07/24/21 [Rx] Follow up Appointment(s)/Referral(s): Bertha,Ali, MD [STAFF PHYSICIAN] - 1 Week Christophe King [NON-STAFF] - As Needed (Supplier of home oxygen) Keri Ley DO [Primary Care Provider] - 1-2 days Patient Instructions/Handouts: How to Stop Smoking (DC), Using Oxygen at Home (DC), How to Quit Using Smokeless Tobacco (DC) Activity/Diet/Wound Care/Special Instructions: Activity Limited until follow-up Follow-up with primary care provider on discharge Continue taking medications as prescribed Continue with breathing treatments Continue with oxygen secondary to COPD Follow-up with pulmonary outpatient in 1-2 weeks Continue with incentive spirometer at least 10 times every hour while awake Continue heart healthy diet Avoid tobacco use or exposure Discharge/Stand Alone Forms: [employer] Discharge Disposition: HOME SELF-CARE
== END 2021-07-24 14:57 | disposition home or self-care (01) ==
LOC: EC 03:38 → 6NMEDSUR 06:45 → 1SOBS 10:10 → 6NMEDSUR 07-23 16:02
PROVIDERS: ADMIT Family Medicine; ATTEND Family Medicine
DX: J44.1 Chronic obstructive pulmonary disease with (acute) exacerbation (principal); J44.0 Chronic obstructive pulmonary disease with (acute) lower respiratory infection; J20.9 Acute bronchitis, unspecified; D70.9 Neutropenia, unspecified; E86.0 Dehydration; E78.5 Hyperlipidemia, unspecified; M19.90 Unspecified osteoarthritis, unspecified site; F32.9 Major depressive disorder, single episode, unspecified; J98.11 Atelectasis; F17.220 Nicotine dependence, chewing tobacco, uncomplicated; Z20.822 Contact with and (suspected) exposure to COVID-19; Z71.6 Tobacco abuse counseling; Z87.01 Personal history of pneumonia (recurrent); Z79.82 Long term (current) use of aspirin; Z79.899 Other long term (current) drug therapy; Z79.891 Long term (current) use of opiate analgesic; Z88.2 Allergy status to sulfonamides; Z88.1 Allergy status to other antibiotic agents; Z91.040 Latex allergy status
CPT/HCPCS: 96376 ×5; 96372 ×3; 96361 ×2; 96367; 96375; 96365; 99285; 36415; 94640 ×6; 94760 ×2; 93005; 83880; 80053 ×2; 83605; 83615; 83735; 84484; 85025 ×2; 85610; 85730; 86140; 84145; 87635; 71045; G0378 ×5; J2930 ×3; J1956; J0696 ×3; J1644 ×3

== ENCOUNTER 2021-09-07 20:45 | Inpatient (IN) | payer MEDICARE, OTHER ==
--- NOTE | 2021-09-07 21:19 | ED ---
Chest Pain HPI - General Chief Complaint: Chest Pain Stated Complaint: Chest pain Time Seen by Provider: 09/07/21 21:07 Source: patient, EMS Mode of arrival: EMS Limitations: no limitations - History of Present Illness Initial Comments: Patient is 76-year-old man who presents here to be evaluated for right-sided chest pains. He states that they had started 12 hours ago. The pains are intermittent. He describes them as "picky", and he states that they come on and are very intense for just couple seconds and then take one or 2 minutes to clear up. They may recur anywhere from 5-20 minutes later. He has not been able to affect him in anyway. He states it does not seem to be related to movement or breathing or coughing. He does not have any associated symptoms. The patient's recent history included hospitalization last month for pneumonia. He states that since that time his exercise capacity does not seem to have recovered back to normal. He states that he can only work in his yard for about 3 hours before he has to go and rest. MD Complaint: chest pain Onset/Timin -: hour(s) Onset: during rest Pain Location: right chest Pain Radiation: none Severity: moderate Quality: other ("picky") Consistency: intermittent Improves With: nothing Worsens With: nothing Treatments Prior to Arrival: none - Related Data Home Medications Medication Instructions Recorded Confirmed Aspirin [Adult Low Dose Aspirin EC] 81 mg PO DAILY 01/12/18 09/07/21 Citalopram Hydrobromide [CeleXA] 20 mg PO DAILY 01/18/18 09/07/21 Omeprazole 20 mg PO DAILY 01/18/18 09/07/21 Oxybutynin Chloride [Ditropan] 5 mg PO BID 01/18/18 09/07/21 Doxazosin [Cardura] 2 mg PO HS 07/22/21 09/07/21 HYDROcodone/APAP 10-325MG [[place] 0.5 tab PO DAILY 07/22/21 09/07/21 10-325] Acetaminophen [Tylenol Extra 1,000 mg PO DAILY 09/07/21 09/07/21 Strength] Albuterol Inhaler [Ventolin Hfa 2 puff INHALATION RT-QID PRN 09/07/21 09/07/21 Inhaler] Rosuvastatin Calcium [Crestor] 5 mg PO DAILY 09/07/21 09/07/21 Spironolactone 50 mg PO DAILY 09/07/21 09/07/21 carvediloL [Coreg] 3.125 mg PO BID 09/07/21 09/07/21 lisinopriL [Zestril] 10 mg PO DAILY 09/07/21 09/07/21 Previous Rx's Medication Instructions Recorded Ipratropium-Albuterol Nebulize 3 ml INHALATION RT-QID PRN #120 ml 07/24/21 [Duoneb 0.5 mg-3 mg/3 ml Soln] Allergies Allergy/AdvReac Type Severity Reaction Status Date / Time clarithromycin [From Biaxin] Allergy purple Verified 09/07/21 23:38 blotches and skin peels latex Allergy Itching Verified 09/07/21 23:38 Sulfa (Sulfonamide Allergy Rash/Hives Verified 09/07/21 23:38 Antibiotics) Review of Systems ROS Statement: Those systems with pertinent positive or pertinent negative responses have been documented in the HPI. ROS Other: All systems not noted in ROS Statement are negative. Constitutional: Denies: fever, chills Respiratory: Denies: cough, dyspnea, hemoptysis Cardiovascular: Reports: as per HPI, chest pain, dyspnea on exertion. Denies: palpitations, orthopnea, edema, syncope Gastrointestinal: Denies: abdominal pain, vomiting, diarrhea Genitourinary: Denies: dysuria, hematuria Musculoskeletal: Denies: back pain Skin: Denies: rash Neurological: Denies: headache, weakness, numbness EKG Findings - EKG Results: EKG: interpreted by CLARA LAZAROL, sinus rhythm (95 bpm), normal axis, normal QRS, normal ST/T, no acute changes Past Medical History Past Medical History: Hyperlipidemia, Osteoarthritis (OA), Pneumonia Additional Past Medical History / Comment(s): SOB, fatigue recently. Hx pneumonia when 17 yrs old. History of Any Multi-Drug Resistant Organisms: None Reported Past Surgical History: Heart Catheterization Additional Past Surgical History / Comment(s): Right arm surgery, colonoscopy. Past Anesthesia/Blood Transfusion Reactions: No Reported Reaction Past Psychological History: Depression Smoking Status: Current every day smoker Past Alcohol Use History: None Reported - Past Family History Mother Family Medical History: No Reported History General Exam Limitations: no limitations General appearance: alert, in no apparent distress Head exam: Present: atraumatic, normocephalic Eye exam: Present: normal appearance. Absent: scleral icterus, conjunctival injection ENT exam: Present: normal oropharynx Neck exam: Present: normal inspection Respiratory exam: Present: normal lung sounds bilaterally. Absent: respiratory distress, wheezes, rales, rhonchi, stridor, chest wall tenderness, accessory muscle use, decreased breath sounds Cardiovascular Exam: Present: regular rate, normal rhythm, normal heart sounds. Absent: systolic murmur, diastolic murmur, rubs, gallop GI/Abdominal exam: Present: soft. Absent: distended, tenderness, guarding, rebound, rigid, mass Extremities exam: Present: normal inspection, normal capillary refill. Absent: pedal edema, calf tenderness Back exam: Present: normal inspection. Absent: CVA tenderness (R), CVA tenderness (L) Neurological exam: Present: alert Skin exam: Present: warm, dry, intact, normal color. Absent: rash Course Vital Signs 09/07/21 09/08/21 21:13 00:25 Temperature 98.8 F Pulse Rate 94 74 Respiratory 18 16 Rate Blood Pressure 119/62 132/72 O2 Sat by Pulse 93 L 96 Oximetry Disposition Clinical Impression: Hyponatremia, Pneumonia Disposition: ADMITTED IP TO THIS HOSP Condition: Good Is patient prescribed a controlled substance at d/c from ED?: No Referrals: Keri Ley DO [Primary Care Provider] - 1-2 days
[2021-09-07 21:34] LABS: Anisocytosis Moderate; Basophils % (A) 1 %; Eosinophils % (A) 1 %; HCT 33.3 % (39.0-53.0); HGB 11.1 gm/dL (13.0-17.5); Lymphocytes # (A) 0.4 k/uL (1.0-4.8); Lymphocytes % (A) 6 %; MCH 32.6 pg (25.0-35.0); MCHC 33.3 g/dL (31.0-37.0); MCV 97.8 fL (80.0-100.0); Macrocytosis Slight; Mean Platelet Volume 9.4; Monocytes # (A) 0.4 k/uL (0-1.0); Monocytes % (A) 6 %; Neutrophils # (A) 6.1 k/uL (1.3-7.7); Neutrophils % (A) 85 %; Platelet Count 117 k/uL (150-450); RDW 20.4 % (11.5-15.5); WBC 7.2 k/uL (3.8-10.6)
[2021-09-07 21:47] LABS: ALT 15 U/L (4-49); AST 24 U/L (17-59); African American GFR (CKD) >90 (>60 ml/min/1.73 sqM); Albumin 3.5 g/dL (3.5-5.0); Alkaline Phosphatase 85 U/L (38-126); Anion Gap 7 mmol/L; Blood Urea Nitrogen 22 mg/dL (9-20); Calcium 8.6 mg/dL (8.4-10.2); Carbon Dioxide 21 mmol/L (22-30); Chloride 97 mmol/L (98-107); Glucose 98 mg/dL (74-99); Magnesium 1.7 mg/dL (1.6-2.3); Non-African American GFR(CKD) 85 (>60 ml/min/1.73 sqM); Sodium 125 mmol/L (137-145); Total Bilirubin 1.2 mg/dL (0.2-1.3)
--- NOTE | 2021-09-07 21:56 | XR ---
EXAMINATION TYPE: XR chest 2V DATE OF EXAM: 09/07/2021 COMPARISON: 07/22/2021 HISTORY: Chest pain TECHNIQUE: FINDINGS: Heart is normal. Lungs are clear of consolidation. There are no hilar masses. Costophrenic angles are clear. There is slight increased interstitial markings in the lower lung golden. There is no pleural effusion. Bony thorax is intact. IMPRESSION: No definite acute lung disease. There is clearing of some interstitial infiltrate and ate lectasis at the lung bases compared to old exam. Normal heart.
[2021-09-07] MEDS ORDERED: KETOROLAC 15 MG/ML 1 ML VIAL IVP STA (22:20)
[2021-09-07 22:37] LABS: Partial Thromboplastin Time 24.3 sec (22.0-30.0); Prothrombin Time 10.8 sec (9.0-12.0)
--- NOTE | 2021-09-07 23:43 | CT ---
EXAMINATION TYPE: CT chest angio for PE DATE OF EXAM: 09/07/2021 COMPARISON: None HISTORY: pe CT DLP: 405.8 mGycm Automated exposure control for dose reduction was used. CONTRAST: Performed with IV Contrast, patient injected with 200 mL of Isovue 370. There are 3-D post processed images. There is interstitial infiltrate throughout the mid and lower lung golden. There is some coalescent d ensity right lower lobe. There is no pericardial effusion. There is no pleural effusion. Thoracic aorta is intact. There is 4 cm aneurysm of the ascending aorta. There is no dissection. There is normal contrast opacification of the pulmonary arteries. There are no filling defects. Thora cic spine is intact. There is no compression fracture. Sternum is intact. IMPRESSION: No evidence of pulmonary embolism. Moderate airspace infiltrate right lower lobe. Interstitial infilt rates in both lower lobes..
[2021-09-08] MEDS ORDERED: PNEUMONIA PROTOCOL UTILIZED 1 EACH MISC PO PRN (00:40)
[2021-09-08] MEDS: SODIUM CHLORIDE 0.9% 1,000 ML IV SCH ×3 (01:00→23:00)
[2021-09-08] MEDS: ASPIRIN 81 MG PO SCH (08:24)
[2021-09-08] MEDS: ATORVASTATIN 10 MG TAB PO SCH (08:24)
[2021-09-08] MEDS: carvediloL 3.125 MG TAB PO SCH ×2 (08:24→17:32)
[2021-09-08] MEDS: OXYBUTYNIN CHLORIDE 5 MG TAB PO SCH ×2 (08:26→22:10)
[2021-09-08] MEDS: HYDROcodone/APAP 5-325MG 1 EACH TAB PO SCH (08:26)
[2021-09-08] MEDS: IPRATROPIUM-ALBUTEROL 3 ML NEB INHALATION PRN ×2 (08:41→12:05)
[2021-09-08] MEDS ORDERED: PANTOPRAZOLE 40 MG TABLET PO SCH (09:00)
[2021-09-08] MEDS ORDERED: CITALOPRAM HYDROBROMIDE 20 MG TAB PO SCH (09:00)
[2021-09-08] MEDS ORDERED: Magnesium Replacement Protocol 1 EACH MISC MISCELLANE PRN (10:05)
--- NOTE | 2021-09-08 11:27 | P.HPIM ---
<RodriMercedesHanna - Last Filed: 09/08/21 11:27> History of Present Illness H&P Date: 09/08/21 Chief Complaint: Shortness of breath, chest pain This is a 76-year-old gentleman,recently admitted with acute COPD exacerbation with tracheobronchitis , possible pneumonia,with past medical history of hyp erlipidemia, osteoarthritis, depression, ongoing nicotine dependence, prior alcohol abuse, presented to the ER with complaints of right-sided intermittent "picky" chest pain, lasting 1-2 minutes, without accompanying symptoms. Maintaining O2 sats in the low to mid 80s on room air .Chest x-ray reporting no definite acute lung disease with clearing of some interstitial infiltrates and atelectasis at the lung bases compared to prior exam. Coronavirus not detected. Afebrile on admission, T-max 99.1, normal WBC, hemoglobin 11.1, platelets 117. D-dimer elevated, 1.49.CT reported interstitial infiltrates of the mid and lower lung golden, some coalescent density in the right lower lobe without pericardial or pleural effusions, no PE. Sodium 125, potassium 4, magnesium 1.7, bicarbonate 21 ,BUN 22, creatinine 0.89. LFTs within normal limits.EKG reported poor data quality, normal sinus rhythm. Troponin negative 1. Past Medical History Past Medical History: Hyperlipidemia, Osteoarthritis (OA), Pneumonia Additional Past Medical History / Comment(s): SOB, fatigue recently. Hx pneumonia when 17 yrs old. History of Any Multi-Drug Resistant Organisms: None Reported Past Surgical History: Heart Catheterization Additional Past Surgical History / Comment(s): Right arm surgery, colonoscopy. Past Anesthesia/Blood Transfusion Reactions: No Reported Reaction Past Psychological History: Depression Smoking Status: Current every day smoker Past Alcohol Use History: None Reported - Past Family History Mother Family Medical History: No Reported History Medications and Allergies Home Medications Medication Instructions Recorded Confirmed Type Aspirin [Adult Low Dose Aspirin EC] 81 mg PO DAILY 01/12/18 09/07/21 History Citalopram Hydrobromide [CeleXA] 20 mg PO DAILY 01/18/18 09/07/21 History Omeprazole 20 mg PO DAILY 01/18/18 09/07/21 History Oxybutynin Chloride [Ditropan] 5 mg PO BID 01/18/18 09/07/21 History Doxazosin [Cardura] 2 mg PO HS 07/22/21 09/07/21 History HYDROcodone/APAP 10-325MG [Foster 0.5 tab PO DAILY 07/22/21 09/07/21 History 10-325] Ipratropium-Albuterol Nebulize 3 ml INHALATION RT-QID PRN #120 ml 07/24/21 09/07/21 Rx [Duoneb 0.5 mg-3 mg/3 ml Soln] Acetaminophen [Tylenol Extra 1,000 mg PO DAILY 09/07/21 09/07/21 History Strength] Albuterol Inhaler [Ventolin Hfa 2 puff INHALATION RT-QID PRN 09/07/21 09/07/21 History Inhaler] Rosuvastatin Calcium [Crestor] 5 mg PO DAILY 09/07/21 09/07/21 History Spironolactone 50 mg PO DAILY 09/07/21 09/07/21 History carvediloL [Coreg] 3.125 mg PO BID 09/07/21 09/07/21 History lisinopriL [Zestril] 10 mg PO DAILY 09/07/21 09/07/21 History Allergies Allergy/AdvReac Type Severity Reaction Status Date / Time clarithromycin [From Biaxin] Allergy purple Verified 09/07/21 23:38 blotches and skin peels latex Allergy Itching Verified 09/07/21 23:38 Sulfa (Sulfonamide Allergy Rash/Hives Verified 09/07/21 23:38 Antibiotics) Physical Exam Vitals: Vital Signs Temp Pulse Pulse Resp BP BP BP 09/08/21 08:56 78 16 09/08/21 08:42 77 16 09/08/21 08:21 79 104/58 09/08/21 02:00 99.1 F 79 16 100/57 09/08/21 00:25 74 16 132/72 09/07/21 21:13 98.8 F 94 18 119/62 Pulse Ox 09/08/21 08:56 09/08/21 08:42 09/08/21 08:21 92 L 09/08/21 02:00 94 L 09/08/21 00:25 96 09/07/21 21:13 93 L Intake and Output 09/07/21 09/08/21 09/08/21 22:59 06:59 14:59 Output Total 300 380 Balance -300 -380 Output: Urine 300 380 Other: Weight 85.729 kg Results CBC & Chem 7: 09/07/21 21:10 09/07/21 21:10 Labs: Abnormal Lab Results - Last 24 Hours (Table) 09/07/21 09/07/21 09/07/21 Range/Units 21:10 21:10 21:10 RBC 3.40 L (4.30-5.90) m/uL Hgb 11.1 L (13.0-17.5) gm/dL Hct 33.3 L (39.0-53.0) % RDW 20.4 H (11.5-15.5) % Plt Count 117 L (150-450) k/uL Lymphocytes # 0.4 L (1.0-4.8) k/uL D-Dimer 1.49 H (<0.60) mg/L FEU Sodium 125 L (137-145) mmol/L Chloride 97 L (98-107) mmol/L Carbon Dioxide 21 L (22-30) mmol/L BUN 22 H (9-20) mg/dL Total Protein 6.0 L (6.3-8.2) g/dL Assessment and Plan Assessment: Acute chest pain, atypical, cardiology following Possible Acute bilateral pneumonia, in a patient recently admitted with acute COPD exacerbation with tracheobronchitis, possible pneumonia. Hyponatremia Thrombocytopenia Elevated d-dimer, CTA reported negative for PE. COPD Hyperlipidemia Osteoarthritis Depression Ongoing nicotine dependence 4 cm ascending aortic aneurysm without dissection reported per CT, continue monitoring outpatient Plan: Continue on current medication regime, monitoring and symptomatically treatment. Cardiology consulted, recommendations pending. Pro-calcitonin, Blo od and sputum cultures ordered. PT/OT. The impression and plan of care has been dictated as directed. : I performed a history and examination of this patient, discussed the same with the dictator. I agree with the dictator's note ,documented as a scribe. Any additional findings or plans will be noted. <Jose Obrien - Last Filed: 09/08/21 23:13> Past Medical History - Past Family History Mother Family Medical History: COPD Additional Family Medical History / Comment(s): Passed at age 52 Father Family Medical History: COPD, Coronary Artery Disease (CAD), Diabetes Mellitus Additional Family Medical History / Comment(s): at age 87. Was [employer] . Physical Exam Vitals: Vital Signs Temp Pulse Pulse Resp BP BP BP 09/08/21 19:52 98.1 F 63 18 92/51 09/08/21 19:41 76 16 09/08/21 19:32 78 16 09/08/21 17:55 98.1 F 63 16 109/66 09/08/21 17:29 66 107/71 09/08/21 14:28 69 18 101/69 09/08/21 12:18 78 16 09/08/21 12:05 84 16 09/08/21 08:56 78 16 09/08/21 08:42 77 16 09/08/21 08:21 79 104/58 09/08/21 02:00 99.1 F 79 16 100/57 09/08/21 00:25 74 16 132/72 Pulse Ox 09/08/21 19:52 95 09/08/21 19:41 09/08/21 19:32 09/08/21 17:55 94 L 09/08/21 17:29 94 L 09/08/21 14:28 94 L 09/08/21 12:18 09/08/21 12:05 09/08/21 08:56 09/08/21 08:42 09/08/21 08:21 92 L 09/08/21 02:00 94 L 09/08/21 00:25 96 Intake and Output 09/08/21 09/08/21 09/09/21 14:59 22:59 06:59 Output Total 380 800 Balance -380 -800 Output: Urine 380 800 Other: Voiding Method Toilet Urinal Weight 85.729 kg Results CBC & Chem 7: 09/07/21 21:10 09/07/21 21:10 Labs: Abnormal Lab Results - Last 24 Hours (Table) 09/08/21 Range/Units 08:45 Procalcitonin 0.51 H (0.02-0.09) ng/mL Assessment and Plan Assessment: Acute bilateral pneumonia; IV rocephin, pt allergic to azithromycin. Follow cult ures
--- NOTE | 2021-09-08 12:48 | P.CRDCN ---
History of Present Illness Consult date: 09/08/21 Chief complaint: Chest pain History of present illness: This is a 76-year-old gentleman with a past medical history significant for hypertension and dyslipidemia and COPD and also history of alcohol and smoking in the past presented to the emergency department complaining of chest discomfort. The patient describes right-sided chest discomfort as a sharp/dull kind of discomfort without any radiation to the arms or neck or shoulders or back and without any associated symptoms of shortness of breath or dizziness or lightheadedness or any feeling of heart racing or fluttering or presyncope or syncope. The according to him is not exertion related. On examination he does have a component of reproducible chest discomfort. The first set of troponin came in to be unremarkable. The vitals are stable. The patient seems to be stable on examination and not in any overt heart failure. WBC/hemoglobin/platelet old came in to be unremarkable. D-dimer was checked and came in to be abnormal and subsequently computed tomography scan of the chest was performed and showed no evidence of PE. Please note that the patient underwent a heart catheterization in May 2021 and that revealed severe disease involving a nondominant ostial left circumflex and maximize medical treatment was advised. Past Medical History Past Medical History: Hyperlipidemia, Osteoarthritis (OA), Pneumonia Additional Past Medical History / Comment(s): SOB, fatigue recently. Hx pneumonia when 17 yrs old. History of Any Multi-Drug Resistant Organisms: None Reported Past Surgical History: Heart Catheterization Additional Past Surgical History / Comment(s): Right arm surgery, colonoscopy. Past Anesthesia/Blood Transfusion Reactions: No Reported Reaction Past Psychological History: Depression Smoking Status: Current every day smoker Past Alcohol Use History: None Reported - Past Family History Mother Family Medical History: No Reported History Medications and Allergies Home Medications Medication Instructions Recorded Confirmed Type Aspirin [Adult Low Dose Aspirin EC] 81 mg PO DAILY 01/12/18 09/07/21 History Citalopram Hydrobromide [CeleXA] 20 mg PO DAILY 01/18/18 09/07/21 History Omeprazole 20 mg PO DAILY 01/18/18 09/07/21 History Oxybutynin Chloride [Ditropan] 5 mg PO BID 01/18/18 09/07/21 History Doxazosin [Cardura] 2 mg PO HS 07/22/21 09/07/21 History HYDROcodone/APAP 10-325MG [Crenshaw 0.5 tab PO DAILY 07/22/21 09/07/21 History 10-325] Ipratropium-Albuterol Nebulize 3 ml INHALATION RT-QID PRN #120 ml 07/24/21 09/07/21 Rx [Duoneb 0.5 mg-3 mg/3 ml Soln] Acetaminophen [Tylenol Extra 1,000 mg PO DAILY 09/07/21 09/07/21 History Strength] Albuterol Inhaler [Ventolin Hfa 2 puff INHALATION RT-QID PRN 09/07/21 09/07/21 History Inhaler] Rosuvastatin Calcium [Crestor] 5 mg PO DAILY 09/07/21 09/07/21 History Spironolactone 50 mg PO DAILY 09/07/21 09/07/21 History carvediloL [Coreg] 3.125 mg PO BID 09/07/21 09/07/21 History lisinopriL [Zestril] 10 mg PO DAILY 09/07/21 09/07/21 History Allergies Allergy/AdvReac Type Severity Reaction Status Date / Time clarithromycin [From Biaxin] Allergy purple Verified 09/07/21 23:38 blotches and skin peels latex Allergy Itching Verified 09/07/21 23:38 Sulfa (Sulfonamide Allergy Rash/Hives Verified 09/07/21 23:38 Antibiotics) Physical Exam Vitals: Vital Signs Temp Pulse Pulse Resp BP BP BP 09/08/21 12:18 78 16 09/08/21 12:05 84 16 09/08/21 08:56 78 16 09/08/21 08:42 77 16 09/08/21 08:21 79 104/58 09/08/21 02:00 99.1 F 79 16 100/57 09/08/21 00:25 74 16 132/72 09/07/21 21:13 98.8 F 94 18 119/62 Pulse Ox 09/08/21 12:18 09/08/21 12:05 09/08/21 08:56 09/08/21 08:42 09/08/21 08:21 92 L 09/08/21 02:00 94 L 09/08/21 00:25 96 09/07/21 21:13 93 L Intake and Output 09/07/21 09/08/21 09/08/21 22:59 06:59 14:59 Output Total 300 380 Balance -300 -380 Output: Urine 300 380 Other: Weight 85.729 kg - Constitutional General appearance: no acute distress - Respiratory Respiratory: bilateral: diminished - Cardiovascular Rhythm: regular Heart sounds: normal: S1, S2 Abnormal Heart Sounds: systolic murmur Results 09/07/21 21:10 09/07/21 21:10 Cardiac Enzymes 09/07/21 09/07/21 Range/Units 21:10 21:10 AST 24 (17-59) U/L Troponin I <0.012 (0.000-0.034) ng/mL Coagulation 09/07/21 Range/Units 21:10 PT 10.8 (9.0-12.0) sec APTT 24.3 (22.0-30.0) sec CBC 09/07/21 Range/Units 21:10 WBC 7.2 (3.8-10.6) k/uL RBC 3.40 L (4.30-5.90) m/uL Hgb 11.1 L (13.0-17.5) gm/dL Hct 33.3 L (39.0-53.0) % Plt Count 117 L (150-450) k/uL Comprehensive Metabolic Panel 09/07/21 Range/Units 21:10 Sodium 125 L (137-145) mmol/L Potassium 4.0 (3.5-5.1) mmol/L Chloride 97 L (98-107) mmol/L Carbon Dioxide 21 L (22-30) mmol/L BUN 22 H (9-20) mg/dL Creatinine 0.89 (0.66-1.25) mg/dL Glucose 98 (74-99) mg/dL Calcium 8.6 (8.4-10.2) mg/dL AST 24 (17-59) U/L ALT 15 (4-49) U/L Alkaline Phosphatase 85 (38-126) U/L Total Protein 6.0 L (6.3-8.2) g/dL Albumin 3.5 (3.5-5.0) g/dL Current Medications Generic Name Dose Route Start Last Admin Trade Name Freq PRN Reason Stop Dose Admin Hydrocodone Bitart/Acetaminophen 1 each 09/08/21 09:00 09/08/21 08:26 Hydrocodone/Apap 5-325mg 1 Each Tab PO 1 each DAILY [facility]CO Administration Albuterol Sulfate 2.5 mg 09/08/21 00:42 Albuterol Nebulized 2.5 Mg/3 Ml INHALATION RT-QID PRN Shortness Of Breath Albuterol/Ipratropium 3 ml 09/08/21 00:42 09/08/21 12:05 Ipratropium-Albuterol 3 Ml Neb INHALATION 3 ml RT-QID PRN Administration Shortness Of Breath Or Wheezing Aspirin 81 mg 09/08/21 09:00 09/08/21 08:24 Aspirin 81 Mg PO 81 mg DAILY MARCO Administration Atorvastatin Calcium 5 mg 09/08/21 09:00 09/08/21 08:24 Atorvastatin 10 Mg Tab PO 5 mg DAILY [facility]CO Administration Carvedilol 3.125 mg 09/08/21 07:30 09/08/21 08:24 Carvedilol 3.125 Mg Tab PO 3.125 mg BID-W/MEALS MARCO Administration Citalopram Hydrobromide 20 mg 09/08/21 09:00 Citalopram Hydrobromide 20 Mg Tab PO DAILY [facility]CO Doxazosin Mesylate 2 mg 09/08/21 21:00 Doxazosin 2 Mg Tab PO HS [facility]CO Sodium Chloride 1,000 mls @ 100 mls/hr 09/08/21 00:45 09/08/21 01:00 Saline 0.9% IV 100 mls/hr .Q10H [facility]CO Administration Ceftriaxone Sodium 2 gm/ 50 mls @ 100 mls/hr 09/08/21 23:00 Sodium Chloride IVPB 09/11/21 23:29 Q24H [facility]CO Isosorbide Mononitrate 30 mg 09/09/21 09:00 Isosorbide Mononitrate Er 30 Mg Tab.Er.24h PO DAILY [facility]CO Lisinopril 10 mg 09/08/21 09:00 Lisinopril 10 Mg Tab PO DAILY [facility]CO Miscellaneous Information 1 each 09/08/21 00:40 Pneumonia Protocol Utilized 1 Each Misc PO ONCE PRN Per Protocol Miscellaneous Information 1 each 09/08/21 10:05 Magnesium Replacement Protocol 1 Each Misc MISCELLANE DAILY PRN Per Protocol Protocol Oxybutynin Chloride 5 mg 09/08/21 09:00 09/08/21 08:26 Oxybutynin Chloride 5 Mg Tab PO 5 mg BID [facility]CO Administration Pantoprazole Sodium 40 mg 09/08/21 10:15 Pantoprazole 40 Mg/10 Ml Vial IVP DAILY [facility]CO Spironolactone 50 mg 09/08/21 09:00 Spironolactone 25 Mg Tab PO DAILY [facility]CO Intake and Output 09/07/21 09/08/21 09/08/21 22:59 06:59 14:59 Output Total 300 380 Balance -300 -380 Output: Urine 300 380 Other: Weight 85.729 kg 09/07/21 21:10 09/07/21 21:10 Assessment and Plan Assessment: Atypical chest discomfort #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 We'll obtain serial cardiac enzymes #3 add oral nitrates to the current medical regimen #4 obtain an echocardiogram was Doppler #5 follow-up with the patient
[2021-09-08] MEDS: SPIRONOLACTONE 25 MG TAB PO SCH (14:32)
[2021-09-08] MEDS: lisinopriL 10 MG TAB PO SCH (14:32)
[2021-09-08] MEDS: PANTOPRAZOLE 40 MG/10 ML VIAL IVP SCH (14:37)
[2021-09-08] MEDS: ALBUTEROL NEBULIZED 2.5 MG/3 ML INHALATION PRN (19:30)
[2021-09-08] MEDS: CITALOPRAM HYDROBROMIDE 20 MG TAB PO SCH (22:09)
[2021-09-08] MEDS: DOXAZOSIN 2 MG TAB PO SCH (22:09)
[2021-09-09 07:05] LABS: Anisocytosis Slight; Basophils % (A) 0 %; Eosinophils # (A) 0.1 k/uL (0-0.7); Eosinophils % (A) 1 %; HCT 31.3 % (39.0-53.0); HGB 10.6 gm/dL (13.0-17.5); Lymphocytes # (A) 0.6 k/uL (1.0-4.8); Lymphocytes % (A) 16 %; MCH 32.4 pg (25.0-35.0); MCHC 33.8 g/dL (31.0-37.0); Macrocytosis Slight; Monocytes # (A) 0.2 k/uL (0-1.0); Monocytes % (A) 5 %; Neutrophils # (A) 2.6 k/uL (1.3-7.7); Neutrophils % (A) 75 %; Platelet Count 102 k/uL (150-450); RBC 3.26 m/uL (4.30-5.90); RDW 19.4 % (11.5-15.5); WBC 3.5 k/uL (3.8-10.6)
--- NOTE | 2021-09-09 09:06 | ECHOF ---
Referral Reason:CP MEASUREMENTS -------- HEIGHT: 175.3 cm WEIGHT: 85.7 kg BP: 104/58 RVIDd: 4.0 cm (< 3.3) IVSd: 1.1 cm (0.6 - 1.1) LVIDd: 3.8 cm (3.9 - 5.3) LVPWd: 1.7 cm (0.6 - 1.1) IVSs: 1.7 cm LVIDs: 2.1 cm LVPWs: 1.4 cm LAESV Index (A-L): 24.19 ml/m Ao Diam: 3.2 cm (2.0 - 3.7) AV Cusp: 2.4 cm (1.5 - 2.6) LA Diam: 4.0 cm (2.7 - 3.8) MV EXCURSION: 20.432 mm (> 18.000) MV EF SLOPE: 82 mm/s (70 - 150) EPSS: 0.8 cm MV E Russ: 0.71 m/s MV DecT: 186 ms MV A Russ: 0.86 m/s MV E/A Ratio: 0.83 RAP: 5.00 mmHg RVSP: 37.28 mmHg FINDINGS -------- Sinus rhythm. This was a technically adequate study. The left ventricular size is normal. There is mild concentric left ventricular hypertrophy. Overa ll left ventricular systolic function is normal with, an EF between 55 - 60 %. The right ventricle is moderately enlarged. Normal LA size by volume 22+/-6 ml/m2. The right atrium is mildly enlarged. Mobile interatrial septum. There is no evidence of aortic regurgitation. There is no evidence of aortic stenosis. No mitral regurgitation. [id number] tricuspid regurgitation present. There is mild pulmonary hypertension. The right ventricular systolic pressure, as measured by Doppler, is 37.28mmHg. There is no pulmonic regurgitation present. The aortic root size is normal. IVC Not well visulized. There is no pericardial effusion. CONCLUSIONS -------- 1. The left ventricular size is normal. 2. There is mild concentric left ventricular hypertrophy. 3. Overall left ventricular systolic function is normal with, an EF between 55 - 60 %. 4. The right ventricle is moderately enlarged. 5. The right atrium is mildly enlarged. 6. Mobile interatrial septum. 7. Wqzy-[id number] tricuspid regurgitation present. 8. There is mild pulmonary hypertension. 9. The right ventricular systolic pressure, as measured by Doppler, is 37.28mmHg. DRAWBRIDGE TENDER: Pam Nguyen RDCS
[2021-09-09] MEDS: OXYBUTYNIN CHLORIDE 5 MG TAB PO SCH ×2 (10:12→20:33)
[2021-09-09] MEDS: SPIRONOLACTONE 25 MG TAB PO SCH (10:12)
[2021-09-09] MEDS: lisinopriL 10 MG TAB PO SCH (10:12)
[2021-09-09] MEDS: HYDROcodone/APAP 5-325MG 1 EACH TAB PO SCH (10:13)
[2021-09-09] MEDS: ATORVASTATIN 10 MG TAB PO SCH (10:13)
[2021-09-09] MEDS: ASPIRIN 81 MG PO SCH (10:15)
[2021-09-09] MEDS: SODIUM CHLORIDE 0.9% 1,000 ML IV SCH ×3 (10:15→23:34)
[2021-09-09] MEDS: carvediloL 3.125 MG TAB PO SCH ×2 (10:15→16:47)
--- NOTE | 2021-09-09 10:24 | P.PN ---
Subjective Progress Note Date: 09/09/21 This is a 76-year-old gentleman,recently admitted with acute COPD exacerbation with tracheobronchitis , possible pneumonia,with past medical history of hyperlipidemia, osteoarthritis, depression, ongoing nicotine dependence, prior alcohol abuse, presented to the ER with complaints of right-sided intermittent "picky" chest pain, lasting 1-2 minutes, without accompanying symptoms. Maintaining O2 sats in the low to mid 80s on room air .Chest x-ray reporting no definite acute lung disease with clearing of some interstitial infiltrates and atelectasis at the lung bases compared to prior exam. Coronavirus not detected. Afebrile on admission, T-max 99.1, normal WBC, hemoglobin 11.1, platelets 117. D-dimer elevated, 1.49.CT reported interstitial infiltrates of the mid and lower lung golden, some coalescent density in the right lower lobe without pericardial or pleural effusions, no PE. Sodium 125, potassium 4, magnesium 1.7, bicarbonate 21 ,BUN 22, creatinine 0.89. LFTs within normal limits.EKG reported poor data quality, normal sinus rhythm. Troponin negative 1. 09/09/2021 evaluated by cardiology, recommendations noted, with Imdur added yesterday to med regimen. Complains of continued right-sided chest pain. Serial troponins negative. Echo pending. Denies lightheadedness dizziness or focal deficits. Denies increased shortness of breath. WBC 3.5, platelets 1.2, hemoglobin 10.6. BMP pending magnesium pending. Pro-calcitonin elevated, 0.51. Maintained on Rocephin.Afebrile. Preliminary blood cultures no growth at 24 hours. Sputum culture not yet collected, reports thick creamy white phlegm resembling "tapioca pudding", worse at night. Maintaining O2 sats in the mid 90s on room air. Objective - Vital Signs Vital signs: Vital Signs Temp 98 F 09/09/21 05:00 Pulse 63 09/09/21 05:00 Resp 18 09/09/21 05:00 BP 97/59 09/09/21 05:00 Pulse Ox 94 L 09/09/21 05:00 Intake & Output 09/08/21 09/09/21 09/09/21 18:59 06:59 18:59 Intake Total 1730 Output Total 1180 Balance -1180 1730 Weight 85.729 kg Intake: Intake, IV Titration 1250 Amount Sodium Chloride 0.9% 1, 1200 000 ml @ 100 mls/hr IV . Q10H [facility]CO Rx#:[id number] cefTRIAXone 2 gm In 50 Sodium Chloride 0.9% 50 ml @ 100 mls/hr IVPB Q24H [facility]CO Rx#:[id number] Oral 480 Output: Urine 1180 Other: Voiding Method Toilet Toilet Urinal Urinal - Exam PHYSICAL EXAM: VITAL SIGNS: As above GENERAL: Alert and oriented 3, Sitting up in bed, no acute distress HEENT: Conjunctivae normal. eyes normal. NECK: No JVD. No thyroid enlargement. No LNs CARDIOVASCULAR: S1, S2 regular.systolic murmur. RESPIRATION: Breath sounds diminished in the bases. Fine right basilar crackles. ABDOMEN: Soft, nontender . No guarding. no masses palpable. Positive Bowel sounds. LEGS: No edema. no swelling NERVOUS SYSTEM: Cranial N 2-12 grossly normal. Moves all 4 limbs. No focal deficits. Strength and sensation grossly intact. Skin: Warm and dry, no rash - Labs CBC & Chem 7: 09/09/21 04:34 09/07/21 21:10 Labs: Abnormal Lab Results - Last 24 Hours (Table) 09/08/21 09/09/21 Range/Units 08:45 04:34 WBC 3.5 L (3.8-10.6) k/uL RBC 3.26 L (4.30-5.90) m/uL Hgb 10.6 L (13.0-17.5) gm/dL Hct 31.3 L (39.0-53.0) % RDW 19.4 H (11.5-15.5) % Plt Count 102 L (150-450) k/uL Lymphocytes # 0.6 L (1.0-4.8) k/uL Procalcitonin 0.51 H (0.02-0.09) ng/mL Microbiology - Last 24 Hours (Table) 09/08/21 04:42 Blood Culture - Preliminary Blood No Growth after 24 hours 09/08/21 01:30 Blood Culture - Preliminary Blood No Growth after 24 hours Assessment and Plan Assessment: Acute chest pain, atypical, serial troponins negative, in a patient with recent heart cath in May 2021 reporting severe disease of ostial left circumflex with maximizing medical treatment recommended. Acute bilateral pneumonia, in a patient recently admitted with acute COPD exacerbation with tracheobronchitis, possible pneumonia. Hyponatremia Pancytopenia in a patient with chronic iron deficient anemia, reports on FeSo4. Elevated d-dimer, CTA reported negative for PE. COPD Hyperlipidemia Osteoarthritis Depression Ongoing nicotine dependence, chews 4 cm ascending aortic aneurysm without dissection reported per CT, continue monitoring outpatient Depression Plan: Continue on current medication regime, monitoring and symptomatically treatment. Sputum culture collection pending. Legionella antigen ordered. BMP pending. Maintain antibiotics, increased ambulation. Right-sided chest pain suspect related to inflammation of lungs, incentive spirometer ordered, IV steroids initiated. Patient chews tobacco daily , nicotine cessation addressed with incentive spirometer ordered. Echo pending. The impression and plan of care has been dictated as directed. : I performed a history and examination of this patient, discussed the same with the dictator. I agree with the dictator's note ,documented as a scribe. Any additional findings or plans will be noted.
[2021-09-09] MEDS: NICOTINE 21MG/24HR PATCH TRANSDERM SCH (10:25)
[2021-09-09] MEDS: methylPREDNISolone SOD SUCCI 40 MG/ML 1 ML VIAL IV SCH ×3 (10:25→23:31)
[2021-09-09] MEDS: ISOSORBIDE MONONITRATE ER 30 MG TAB.ER.24H PO SCH (10:25)
[2021-09-09] MEDS: PANTOPRAZOLE 40 MG/10 ML VIAL IVP SCH (10:25)
[2021-09-09] MEDS: IPRATROPIUM-ALBUTEROL 3 ML NEB INHALATION PRN ×2 (11:31→15:38)
[2021-09-09 11:49] LABS: African American GFR (CKD) 97.2 (60.0-200.0); Anion Gap 10.7 mmol/L (10.00-18.00); BUN/Creat Ratio 16.11 Ratio (12.00-20.00); Blood Urea Nitrogen 14.5 mg/dL (9.0-27.0); Calcium 8.2 mg/dL (8.7-10.3); Carbon Dioxide 21.3 mmol/L (20.0-27.5); Magnesium 2.2 mg/dL (1.5-2.4); Non-African American GFR(CKD) 83.8 (60.0-200.0); Potassium 4.2 mmol/L (3.5-5.5)
[2021-09-09 12:07] LABS: Glucose,Whole Blood 124 mg/dL (75-99)
[2021-09-09] MEDS: INSULIN ASPART (NovoLOG) 100 UNIT/ML VIAL SQ SCH ×3 (14:05→20:34)
--- NOTE | 2021-09-09 15:43 | P.PN ---
Subjective Progress Note Date: 09/09/21 Principal diagnosis: Coronary artery disease/chest pain The patient is a 76-year-old gentleman with CAD and known disease involving the LCx as well as hypertension and dyslipidemia who presented to the hospital complaining of shortness of breath and a chest discomfort. He was ruled out for acute coronary event. He was diagnosed with bilateral pneumonia. The patient was seen this morning. He stated he is feeling better. No more chest pain or chest discomfort and anyway his chest discomfort was on the right side and was atypical for angina. Hemodynamically he is slightly low the blood pressure and I'm going to decrease the dose of lisinopril from 10 mg daily to 5 mg by mouth daily BP underwent an echo which revealed normal left ventricular systolic function. Objective - Vital Signs Vital signs: Vital Signs Temp 97.9 F 09/09/21 11:11 Pulse 64 09/09/21 15:38 Resp 18 09/09/21 11:11 BP 95/48 09/09/21 11:11 Pulse Ox 94 L 09/09/21 11:11 Intake & Output 09/08/21 09/09/21 09/09/21 18:59 06:59 18:59 Intake Total 1730 Output Total 1180 Balance -1180 1730 Weight 85.729 kg Intake: Intake, IV Titration 1250 Amount Sodium Chloride 0.9% 1, 1200 000 ml @ 100 mls/hr IV . Q10H [facility] Rx#:[id number] cefTRIAXone 2 gm In 50 Sodium Chloride 0.9% 50 ml @ 100 mls/hr IVPB Q24H [facility] Rx#:[id number] Oral 480 Output: Urine 1180 Other: Voiding Method Toilet Toilet Toilet Urinal Urinal Urinal - Constitutional General appearance: Present: no acute distress - Respiratory Respiratory: bilateral: diminished - Cardiovascular Rhythm: regular Heart sounds: normal: S1, S2 - Labs CBC & Chem 7: 09/09/21 04:34 09/09/21 04:34 Labs: Abnormal Lab Results - Last 24 Hours (Table) 09/08/21 09/09/21 09/09/21 Range/Units 08:45 04:34 04:34 WBC 3.5 L (3.8-10.6) k/uL RBC 3.26 L (4.30-5.90) m/uL Hgb 10.6 L (13.0-17.5) gm/dL Hct 31.3 L (39.0-53.0) % RDW 19.4 H (11.5-15.5) % Plt Count 102 L (150-450) k/uL Lymphocytes # 0.6 L (1.0-4.8) k/uL Glucose 115 H (70-110) mg/dL POC Glucose (mg/dL) (75-99) mg/dL Calcium 8.2 L (8.7-10.3) mg/dL Procalcitonin 0.51 H (0.02-0.09) ng/mL 09/09/21 Range/Units 12:05 WBC (3.8-10.6) k/uL RBC (4.30-5.90) m/uL Hgb (13.0-17.5) gm/dL Hct (39.0-53.0) % RDW (11.5-15.5) % Plt Count (150-450) k/uL Lymphocytes # (1.0-4.8) k/uL Glucose (70-110) mg/dL POC Glucose (mg/dL) 124 H (75-99) mg/dL Calcium (8.7-10.3) mg/dL Procalcitonin (0.02-0.09) ng/mL Microbiology - Last 24 Hours (Table) 09/08/21 04:42 Blood Culture - Preliminary Blood No Growth after 24 hours 09/08/21 01:30 Blood Culture - Preliminary Blood No Growth after 24 hours Assessment and Plan Assessment: Atypical chest discomfort #2 known CAD involving the ostial left circumflex coronary artery #3 possible COPD/pneumonia #4 low blood pressure #5 dyslipidemia Plan #1 pulmonary embolism was ruled out #2 acute coronary syndrome was ruled out #3 decrease the dose of lisinopril
[2021-09-09 17:24] LABS: Glucose,Whole Blood 180 mg/dL (75-99)
[2021-09-09] MEDS: ALBUTEROL NEBULIZED 2.5 MG/3 ML INHALATION PRN (20:14)
[2021-09-09 20:23] LABS: Glucose,Whole Blood 245 mg/dL (75-99)
[2021-09-09] MEDS: CITALOPRAM HYDROBROMIDE 20 MG TAB PO SCH (20:33)
[2021-09-09] MEDS: DOXAZOSIN 2 MG TAB PO SCH (20:33)
[2021-09-10 05:38] LABS: Anisocytosis Slight; Basophils % (A) 0 %; Eosinophils % (A) 0 %; HCT 30.4 % (39.0-53.0); HGB 10.4 gm/dL (13.0-17.5); Lymphocytes # (A) 0.3 k/uL (1.0-4.8); Lymphocytes % (A) 11 %; MCH 32.5 pg (25.0-35.0); MCV 95.5 fL (80.0-100.0); Mean Platelet Volume 10.1; Monocytes # (A) 0.1 k/uL (0-1.0); Monocytes % (A) 3 %; Neutrophils # (A) 2.5 k/uL (1.3-7.7); Neutrophils % (A) 85 %; Platelet Count 105 k/uL (150-450); RBC 3.19 m/uL (4.30-5.90); RDW 18.9 % (11.5-15.5); WBC 2.9 k/uL (3.8-10.6)
[2021-09-10 07:18] LABS: Glucose,Whole Blood 146 mg/dL (75-99)
[2021-09-10] MEDS: ISOSORBIDE MONONITRATE ER 30 MG TAB.ER.24H PO SCH (08:18)
[2021-09-10] MEDS: PANTOPRAZOLE 40 MG TABLET PO SCH (08:18)
[2021-09-10] MEDS: HYDROcodone/APAP 5-325MG 1 EACH TAB PO SCH (08:18)
[2021-09-10] MEDS: OXYBUTYNIN CHLORIDE 5 MG TAB PO SCH ×2 (08:19→20:42)
[2021-09-10] MEDS: ATORVASTATIN 10 MG TAB PO SCH (08:19)
[2021-09-10] MEDS: carvediloL 3.125 MG TAB PO SCH ×2 (08:19→15:54)
[2021-09-10] MEDS: SPIRONOLACTONE 25 MG TAB PO SCH (08:19)
[2021-09-10] MEDS: ASPIRIN 81 MG PO SCH (08:19)
[2021-09-10] MEDS: NICOTINE 21MG/24HR PATCH TRANSDERM SCH (08:20)
[2021-09-10] MEDS: methylPREDNISolone SOD SUCCI 40 MG/ML 1 ML VIAL IV SCH ×3 (08:20→22:53)
[2021-09-10] MEDS: INSULIN ASPART (NovoLOG) 100 UNIT/ML VIAL SQ SCH ×4 (08:21→20:42)
[2021-09-10] MEDS ORDERED: lisinopriL 5 MG TAB PO SCH (09:00)
--- NOTE | 2021-09-10 10:37 | P.PN ---
Subjective Progress Note Date: 09/10/21 Principal diagnosis: Coronary artery disease/chest pain The patient is a 76-year-old gentleman with CAD and known disease involving the LCx as well as hypertension and dyslipidemia who presented to the hospital complaining of shortness of breath and a chest discomfort. He was ruled out for acute coronary event. He was diagnosed with bilateral pneumonia. The patient was seen this morning. He stated he is feeling better. No more chest pain or chest discomfort and anyway his chest discomfort was on the right side and was atypical for angina. The blood pressure continues to be low in spite decreasing the dose of lisinopril. I'm going to decrease the dose of lisinopril further down. Otherwise from the cardiac standpoint of view, the patient can be discharged home Objective - Vital Signs Vital signs: Vital Signs Temp 97.7 F 09/10/21 04:49 Pulse 63 09/10/21 04:49 Resp 18 09/10/21 04:49 BP 102/42 09/10/21 04:49 Pulse Ox 95 09/10/21 04:49 Intake & Output 09/09/21 09/10/21 09/10/21 18:59 06:59 18:59 Intake Total 240 Output Total 1000 Balance 240 -1000 Intake: Oral 240 Output: Urine 1000 Other: Voiding Method Toilet Toilet Urinal Urinal # Voids 2 - Constitutional General appearance: Present: no acute distress - Respiratory Respiratory: bilateral: diminished - Cardiovascular Rhythm: regular - Labs CBC & Chem 7: 09/10/21 05:08 09/09/21 04:34 Labs: Abnormal Lab Results - Last 24 Hours (Table) 09/09/21 09/09/21 09/09/21 Range/Units 04:34 12:05 17:15 WBC (3.8-10.6) k/uL RBC (4.30-5.90) m/uL Hgb (13.0-17.5) gm/dL Hct (39.0-53.0) % RDW (11.5-15.5) % Plt Count (150-450) k/uL Lymphocytes # (1.0-4.8) k/uL Glucose 115 H (70-110) mg/dL POC Glucose (mg/dL) 124 H 180 H (75-99) mg/dL Calcium 8.2 L (8.7-10.3) mg/dL 09/09/21 09/10/21 09/10/21 Range/Units 20:22 05:08 07:17 WBC 2.9 L (3.8-10.6) k/uL RBC 3.19 L (4.30-5.90) m/uL Hgb 10.4 L (13.0-17.5) gm/dL Hct 30.4 L (39.0-53.0) % RDW 18.9 H (11.5-15.5) % Plt Count 105 L (150-450) k/uL Lymphocytes # 0.3 L (1.0-4.8) k/uL Glucose (70-110) mg/dL POC Glucose (mg/dL) 245 H 146 H (75-99) mg/dL Calcium (8.7-10.3) mg/dL Microbiology - Last 24 Hours (Table) 09/08/21 04:42 Blood Culture - Preliminary Blood No Growth after 48 hours 09/08/21 01:30 Blood Culture - Preliminary Blood No Growth after 48 hours Assessment and Plan Assessment: Atypical chest discomfort #2 known CAD involving the ostial left circumflex coronary artery #3 possible COPD/pneumonia #4 low blood pressure #5 dyslipidemia Plan #1 decrease the dose of lisinopril #2 follow-up with the patient on when necessary case
[2021-09-10 10:58] LABS: African American GFR (CKD) 109.3 (60.0-200.0); Anion Gap 9.9 mmol/L (10.00-18.00); BUN/Creat Ratio 21.01 Ratio (12.00-20.00); Blood Urea Nitrogen 14.2 mg/dL (9.0-27.0); Calcium 8.9 mg/dL (8.7-10.3); Carbon Dioxide 19.6 mmol/L (20.0-27.5); Non-African American GFR(CKD) 94.3 (60.0-200.0); Potassium 4.8 mmol/L (3.5-5.5)
[2021-09-10 11:57] LABS: Glucose,Whole Blood 128 mg/dL (75-99)
[2021-09-10] MEDS: SODIUM CHLORIDE 0.9% 1,000 ML IV SCH ×2 (15:54→20:43)
[2021-09-10 17:23] LABS: Glucose,Whole Blood 123 mg/dL (75-99)
--- NOTE | 2021-09-10 19:24 | P.CONS ---
History of Present Illness - Reason for Consult Consult date: 09/10/21 Pancytopenia - History of Present Illness The patient is a 76-year-old white male, well known to our service. He has been followed by Dr. Blum in the office. He was initially seen around 2011 for iron deficiency anemia, with negative GI workup. This did improve with iron supplementation. He did not follow-up subsequently for about 4-5 years. He came back to the office in 2017 with pancytopenia. Hemoglobin was in the 10-11 range, WBC 2-3000, and platelets in the 90-1 50,000 range. He had an extensive pancytopenia workup with labs which were negative. It was felt that he possibly had myelodysplasia. As his counts were stable in a safe range, observation versus further workup with bone marrow was discussed. The patient opted for observation. He was last seen in the office in 03/09 and counts were stable and his usual range. The patient was admitted this time with right-sided chest pain, with radiation to the neck, associated with some shortness of breath and a pleuritic component. We'll also having cough productive of grayish to yellowish sputum. He was admitted to the hospital in 08/09 for pneumonia. During this admission he was evaluated by cardiology and ischemia was ruled out. He had a CTA of the chest and chest x-ray. The chest x-ray mentioned some improvement in interstitial pneumonia, but CTA did show airspace infiltrate in the right lower lobe, in addition to the bilateral interstitial infiltrates. Patient was therefore felt to most likely have a pneumonia and is on treatment for the same. Patient's CBC during this admission is within his usual range. Hemoglobin has been 10-11. WBC has been in the 2-3000 range. Platelets have been in the low 100 range. ANC has consistently been greater than 1000 Review of Systems Constitutional: Reports poor appetite, Reports sweats, Reports weakness Eyes: denies blurred vision, denies pain Ears: deny: decreased hearing, ear discharge, earache, tinnitus Ears, nose, mouth and throat: Denies headache, Denies sore throat Cardiovascular: Reports chest pain, Reports shortness of breath Respiratory: Reports cough with sputum, Reports dyspnea, Reports pain on in spiration Gastrointestinal: Denies abdominal pain, Denies diarrhea, Denies nausea, Denies vomiting Genitourinary: Reports as per HPI Musculoskeletal: Reports muscle weakness Integumentary: Denies pruritus, Denies rash Neurological: Denies numbness, Denies weakness Psychiatric: Denies anxiety, Denies depression Endocrine: Reports fatigue, Denies weight change Hematologic/Lymphatic: Reports as per HPI Past Medical History Past Medical History: COPD, GERD/Reflux, Hyperlipidemia, Osteoarthritis (OA), Pneumonia, Prostate Disorder Additional Past Medical History / Comment(s): Has chronic back/neck and sciatica pain. Patient has prostate issues and wears a depends. History of Any Multi-Drug Resistant Organisms: None Reported Past Surgical History: Heart Catheterization Additional Past Surgical History / Comment(s): Right arm surgery in 1973 from major arm lacertions, colonoscopy. Past Anesthesia/Blood Transfusion Reactions: No Reported Reaction Smoking Status: Former smoker - Past Family History Mother Family Medical History: COPD Additional Family Medical History / Comment(s): Passed at age 52 Father Family Medical History: COPD, Coronary Artery Disease (CAD), Diabetes Mellitus Additional Family Medical History / Comment(s): at age 87. Was [employer] . Medications and Allergies Home Medications Medication Instructions Recorded Confirmed Type Aspirin [Adult Low Dose Aspirin EC] 81 mg PO DAILY 01/12/18 09/07/21 History Citalopram Hydrobromide [CeleXA] 20 mg PO DAILY 01/18/18 09/07/21 History Omeprazole 20 mg PO DAILY 01/18/18 09/07/21 History Oxybutynin Chloride [Ditropan] 5 mg PO BID 01/18/18 09/07/21 History Doxazosin [Cardura] 2 mg PO HS 07/22/21 09/07/21 History HYDROcodone/APAP 10-325MG [[place] 0.5 tab PO DAILY 07/22/21 09/07/21 History 10-325] Ipratropium-Albuterol Nebulize 3 ml INHALATION RT-QID PRN #120 ml 07/24/21 09/07/21 Rx [Duoneb 0.5 mg-3 mg/3 ml Soln] Acetaminophen [Tylenol Extra 1,000 mg PO DAILY 09/07/21 09/07/21 History Strength] Albuterol Inhaler [Ventolin Hfa 2 puff INHALATION RT-QID PRN 09/07/21 09/07/21 History Inhaler] Rosuvastatin Calcium [Crestor] 5 mg PO DAILY 09/07/21 09/07/21 History Spironolactone 50 mg PO DAILY 09/07/21 09/07/21 History carvediloL [Coreg] 3.125 mg PO BID 09/07/21 09/07/21 History lisinopriL [Zestril] 10 mg PO DAILY 09/07/21 09/07/21 History Allergies Allergy/AdvReac Type Severity Reaction Status Date / Time clarithromycin [From Biaxin] Allergy purple Verified 09/07/21 23:38 blotches and skin peels latex Allergy Itching Verified 09/07/21 23:38 Sulfa (Sulfonamide Allergy Rash/Hives Verified 09/07/21 23:38 Antibiotics) Physical Exam Vitals: Vital Signs Temp Pulse Pulse Resp BP Pulse Ox 09/10/21 12:47 98.1 F 62 17 105/45 93 L 09/10/21 10:30 95 09/10/21 08:30 63 18 09/10/21 07:15 98.1 F 76 145/71 09/10/21 04:49 97.7 F 63 18 102/42 95 09/09/21 20:26 68 16 09/09/21 20:15 68 16 09/09/21 19:47 98.2 F 68 18 106/62 92 L Intake and Output 09/10/21 09/10/21 09/10/21 06:59 14:59 22:59 Intake Total 400 Output Total 1000 1400 Balance -1000 -1000 Intake: Oral 400 Output: Urine 1000 1400 Other: Voiding Method Toilet Urinal # Bowel Movements 1 - Constitutional General appearance: no acute distress - EENT Eyes: EOMI, PERRLA ENT: hearing grossly normal, normal oropharynx - Neck Neck: no lymphadenopathy Thyroid: bilateral: normal size - Respiratory Respiratory: bilateral: CTA - Cardiovascular Rhythm: regular Heart sounds: normal: S1, S2 - Gastrointestinal General gastrointestinal: normal bowel sounds, soft - Integumentary Integumentary: normal - Neurologic Neurologic: CNII-XII intact - Musculoskeletal Musculoskeletal: generalized weakness, strength equal bilaterally - Psychiatric Psychiatric: A&O x's 3, appropriate affect Results CBC & Chem 7: 09/10/21 05:08 09/10/21 05:08 Labs: Abnormal Lab Results - Last 24 Hours (Table) 09/09/21 09/10/21 09/10/21 Range/Units 20:22 05:08 05:08 WBC 2.9 L (3.8-10.6) k/uL RBC 3.19 L (4.30-5.90) m/uL Hgb 10.4 L (13.0-17.5) gm/dL Hct 30.4 L (39.0-53.0) % RDW 18.9 H (11.5-15.5) % Plt Count 105 L (150-450) k/uL Lymphocytes # 0.3 L (1.0-4.8) k/uL Carbon Dioxide 19.6 L (20.0-27.5) mmol/L Anion Gap 9.90 L (10.00-18.00) mmol/L BUN/Creatinine Ratio 21.01 H (12.00-20.00) Ratio Glucose 136 H (70-110) mg/dL POC Glucose (mg/dL) 245 H (75-99) mg/dL 09/10/21 09/10/21 09/10/21 Range/Units 07:17 11:56 17:22 WBC (3.8-10.6) k/uL RBC (4.30-5.90) m/uL Hgb (13.0-17.5) gm/dL Hct (39.0-53.0) % RDW (11.5-15.5) % Plt Count (150-450) k/uL Lymphocytes # (1.0-4.8) k/uL Carbon Dioxide (20.0-27.5) mmol/L Anion Gap (10.00-18.00) mmol/L BUN/Creatinine Ratio (12.00-20.00) Ratio Glucose (70-110) mg/dL POC Glucose (mg/dL) 146 H 128 H 123 H (75-99) mg/dL Microbiology - Last 24 Hours (Table) 09/10/21 10:46 Sputum Culture - Preliminary Sputum 09/08/21 04:42 Blood Culture - Preliminary Blood No Growth after 48 hours 09/08/21 01:30 Blood Culture - Preliminary Blood No Growth after 48 hours Comments: Echocardiogram report reviewed. Normal ejection fraction, no significant wall motion abnormality Chest x-ray: report reviewed CT scan - chest: report reviewed Assessment and Plan (1) Pancytopenia Narrative/Plan: The patient has a chronic, mostly mild and stable pancytopenia with negative workup in the past. During this admission, as noted in the HPI his counts are within his usual range. Counts are all adequate. No specific intervention or additional workup is required given the stability. - The patient's felt to have pneumonia. While total WBC is low, ANC is again quite sufficient at greater than 1000. It was 2500 today. Therefore no augmentation is required. - In these cases, any additional stress such as acute inflammation or infection can cause marked drop in blood counts. However so far these have been mostly stable as noted. Continue to monitor and supplement as needed. Current Visit: Yes Status: Acute Code(s): D61.818 - OTHER PANCYTOPENIA SNOMED Code(s): 553192220 Plan: Therefore to be in excellent results of the consultants for management of his clinical pneumonia.
[2021-09-10] MEDS: IPRATROPIUM-ALBUTEROL 3 ML NEB INHALATION PRN (19:43)
[2021-09-10 20:02] LABS: Glucose,Whole Blood 165 mg/dL (75-99)
[2021-09-10] MEDS: DOXAZOSIN 2 MG TAB PO SCH (20:36)
[2021-09-10] MEDS: CITALOPRAM HYDROBROMIDE 20 MG TAB PO SCH (20:42)
[2021-09-11 05:54] LABS: Anisocytosis Slight; Basophils % (A) 0 %; Eosinophils % (A) 0 %; HCT 29.8 % (39.0-53.0); HGB 10.3 gm/dL (13.0-17.5); Lymphocytes % (A) 23 %; MCHC 34.4 g/dL (31.0-37.0); MCV 95.9 fL (80.0-100.0); Macrocytosis Slight; Mean Platelet Volume 9.6; Monocytes # (A) 0.2 k/uL (0-1.0); Monocytes % (A) 5 %; Neutrophils # (A) 3.2 k/uL (1.3-7.7); Neutrophils % (A) 71 %; Platelet Count 113 k/uL (150-450); RBC 3.11 m/uL (4.30-5.90); RDW 19.3 % (11.5-15.5); WBC 4.5 k/uL (3.8-10.6)
[2021-09-11 07:23] LABS: Glucose,Whole Blood 97 mg/dL (75-99)
[2021-09-11] MEDS: IPRATROPIUM-ALBUTEROL 3 ML NEB INHALATION PRN ×3 (07:28→15:14)
[2021-09-11] MEDS: INSULIN ASPART (NovoLOG) 100 UNIT/ML VIAL SQ SCH ×4 (07:40→20:10)
[2021-09-11] MEDS: carvediloL 3.125 MG TAB PO SCH ×2 (08:09→17:42)
[2021-09-11] MEDS: NICOTINE 21MG/24HR PATCH TRANSDERM SCH (08:09)
[2021-09-11] MEDS: ASPIRIN 81 MG PO SCH (08:10)
[2021-09-11] MEDS: ATORVASTATIN 10 MG TAB PO SCH (08:10)
[2021-09-11] MEDS: PANTOPRAZOLE 40 MG TABLET PO SCH (08:10)
[2021-09-11] MEDS: SPIRONOLACTONE 25 MG TAB PO SCH (08:10)
[2021-09-11] MEDS: HYDROcodone/APAP 5-325MG 1 EACH TAB PO SCH (08:10)
[2021-09-11] MEDS: methylPREDNISolone SOD SUCCI 40 MG/ML 1 ML VIAL IV SCH ×3 (08:10→23:09)
[2021-09-11] MEDS: SODIUM CHLORIDE 0.9% 1,000 ML IV SCH (08:11)
[2021-09-11] MEDS: ISOSORBIDE MONONITRATE ER 30 MG TAB.ER.24H PO SCH (08:11)
[2021-09-11] MEDS: OXYBUTYNIN CHLORIDE 5 MG TAB PO SCH ×2 (08:11→20:06)
[2021-09-11 12:02] LABS: Glucose,Whole Blood 107 mg/dL (75-99)
--- NOTE | 2021-09-11 15:01 | P.PN ---
Subjective Progress Note Date: 09/10/21 Principal diagnosis: Acute bilateral Pneumonia Pancytopenia Hyponatremia Coronary artery disease/chest pain 76-year-old gentleman,recently admitted with acute COPD exacerbation with tracheobronchitis , possible pneumonia,with past medical history of hype rlipidemia, osteoarthritis, depression, ongoing nicotine dependence, prior alcohol abuse, presented to the ER with complaints of right-sided intermittent "picky" chest pain, lasting 1-2 minutes, without accompanying symptoms. Maintaining O2 sats in the low to mid 80s on room air .Chest x-ray reporting no definite acute lung disease with clearing of some interstitial infiltrates and atelectasis at the lung bases compared to prior exam. Coronavirus not detected. Afebrile on admission, T-max 99.1, normal WBC, hemoglobin 11.1, platelets 117. D-dimer elevated, 1.49.CT reported interstitial infiltrates of the mid and lower lung golden, some coalescent density in the right lower lobe without pericardial or pleural effusions, no PE. Sodium 125, potassium 4, magnesium 1.7, bicarbonate 21 ,BUN 22, creatinine 0.89. LFTs within normal limits.EKG reported poor data quality, normal sinus rhythm. Troponin negative 1. Objective - Vital Signs Vital signs: Vital Signs Temp 97.7 F 09/10/21 04:49 Pulse 63 09/10/21 08:30 Resp 18 09/10/21 08:30 BP 102/42 09/10/21 04:49 Pulse Ox 95 09/10/21 10:30 Intake & Output 09/09/21 09/10/21 09/10/21 18:59 06:59 18:59 Intake Total 240 Output Total 1000 Balance 240 -1000 Intake: Oral 240 Output: Urine 1000 Other: Voiding Method Toilet Toilet Toilet Urinal Urinal Urinal # Voids 2 - Exam GENERAL: Alert and oriented 3, Sitting up in bed, no acute distress HEENT: Conjunctivae normal. eyes normal. NECK: No JVD. No thyroid enlargement. No LNs CARDIOVASCULAR: S1, S2 regular.systolic murmur. RESPIRATION: Breath sounds diminished in the bases. Fine right basilar crackles. ABDOMEN: Soft, nontender . No guarding. no masses palpable. Positive Bowel sounds. LEGS: No edema. no swelling NERVOUS SYSTEM: Cranial N 2-12 grossly normal. Moves all 4 limbs. No focal deficits. Strength and sensation grossly intact. Skin: Warm and dry, no rash - Labs CBC & Chem 7: 09/11/21 05:12 09/10/21 05:08 Labs: Abnormal Lab Results - Last 24 Hours (Table) 09/09/21 09/09/21 09/10/21 Range/Units 17:15 20:22 05:08 WBC 2.9 L (3.8-10.6) k/uL RBC 3.19 L (4.30-5.90) m/uL Hgb 10.4 L (13.0-17.5) gm/dL Hct 30.4 L (39.0-53.0) % RDW 18.9 H (11.5-15.5) % Plt Count 105 L (150-450) k/uL Lymphocytes # 0.3 L (1.0-4.8) k/uL Carbon Dioxide (20.0-27.5) mmol/L Anion Gap (10.00-18.00) mmol/L BUN/Creatinine Ratio (12.00-20.00) Ratio Glucose (70-110) mg/dL POC Glucose (mg/dL) 180 H 245 H (75-99) mg/dL 09/10/21 09/10/21 09/10/21 Range/Units 05:08 07:17 11:56 WBC (3.8-10.6) k/uL RBC (4.30-5.90) m/uL Hgb (13.0-17.5) gm/dL Hct (39.0-53.0) % RDW (11.5-15.5) % Plt Count (150-450) k/uL Lymphocytes # (1.0-4.8) k/uL Carbon Dioxide 19.6 L (20.0-27.5) mmol/L Anion Gap 9.90 L (10.00-18.00) mmol/L BUN/Creatinine Ratio 21.01 H (12.00-20.00) Ratio Glucose 136 H (70-110) mg/dL POC Glucose (mg/dL) 146 H 128 H (75-99) mg/dL Microbiology - Last 24 Hours (Table) 09/08/21 04:42 Blood Culture - Preliminary Blood No Growth after 48 hours 09/08/21 01:30 Blood Culture - Preliminary Blood No Growth after 48 hours Assessment and Plan Assessment: Acute chest pain, atypical, serial troponins negative, in a patient with recent heart cath in May 2021 reporting severe disease of ostial left circumflex with maximizing medical treatment recommended. Acute bilateral pneumonia, in a patient recently admitted with acute COPD exacerbation with tracheobronchitis, possible pneumonia. Hyponatremia Pancytopenia in a patient with chronic iron deficient anemia, reports on FeSo4. Elevated d-dimer, CTA reported negative for PE. COPD Hyperlipidemia Osteoarthritis Depression Ongoing nicotine dependence, chews 4 cm ascending aortic aneurysm without dissection reported per CT, continue monitoring outpatient Depression Patient remains on IV antibiotics in form of ceftriaxone 2 g IV daily; remains on Solu-Medrol 40 mg IV every 8 hours along with albuterol nebulizer treatments We will plan to consult hematology/oncology for worsening pancytopenia Patient's labs and blood work is reviewed
[2021-09-11 17:12] LABS: Glucose,Whole Blood 175 mg/dL (75-99)
[2021-09-11] MEDS: ALBUTEROL NEBULIZED 2.5 MG/3 ML INHALATION PRN (19:46)
[2021-09-11] MEDS: DOXAZOSIN 2 MG TAB PO SCH (20:06)
[2021-09-11] MEDS: CITALOPRAM HYDROBROMIDE 20 MG TAB PO SCH (20:06)
[2021-09-11 20:10] LABS: Glucose,Whole Blood 163 mg/dL (75-99)
[2021-09-12 07:39] LABS: Glucose,Whole Blood 137 mg/dL (75-99)
[2021-09-12] MEDS: ISOSORBIDE MONONITRATE ER 30 MG TAB.ER.24H PO SCH (08:07)
[2021-09-12] MEDS: OXYBUTYNIN CHLORIDE 5 MG TAB PO SCH ×2 (08:07→20:51)
[2021-09-12] MEDS: SPIRONOLACTONE 25 MG TAB PO SCH (08:07)
[2021-09-12] MEDS: HYDROcodone/APAP 5-325MG 1 EACH TAB PO SCH (08:07)
[2021-09-12] MEDS: PANTOPRAZOLE 40 MG TABLET PO SCH (08:08)
[2021-09-12] MEDS: carvediloL 3.125 MG TAB PO SCH ×2 (08:08→17:54)
[2021-09-12] MEDS: INSULIN ASPART (NovoLOG) 100 UNIT/ML VIAL SQ SCH ×4 (08:08→20:52)
[2021-09-12] MEDS: ASPIRIN 81 MG PO SCH (08:08)
[2021-09-12] MEDS: methylPREDNISolone SOD SUCCI 40 MG/ML 1 ML VIAL IV SCH ×2 (08:08→16:23)
[2021-09-12] MEDS: ATORVASTATIN 10 MG TAB PO SCH (08:08)
[2021-09-12] MEDS: NICOTINE 21MG/24HR PATCH TRANSDERM SCH (09:08)
[2021-09-12 12:44] LABS: Glucose,Whole Blood 131 mg/dL (75-99)
[2021-09-12 17:25] LABS: Glucose,Whole Blood 144 mg/dL (75-99)
[2021-09-12 20:27] LABS: Glucose,Whole Blood 161 mg/dL (75-99)
[2021-09-12] MEDS: DOXAZOSIN 2 MG TAB PO SCH (20:51)
[2021-09-12] MEDS: CITALOPRAM HYDROBROMIDE 20 MG TAB PO SCH (20:52)
[2021-09-12 22:08] VITALS: RESP 16
[2021-09-13] MEDS: methylPREDNISolone SOD SUCCI 40 MG/ML 1 ML VIAL IV SCH ×3 (00:20→17:39)
[2021-09-13 07:19] LABS: Glucose,Whole Blood 126 mg/dL (75-99)
[2021-09-13] MEDS: INSULIN ASPART (NovoLOG) 100 UNIT/ML VIAL SQ SCH ×3 (08:15→17:37)
[2021-09-13] MEDS: SPIRONOLACTONE 25 MG TAB PO SCH (09:06)
[2021-09-13] MEDS: ATORVASTATIN 10 MG TAB PO SCH (09:06)
[2021-09-13] MEDS: ISOSORBIDE MONONITRATE ER 30 MG TAB.ER.24H PO SCH (09:07)
[2021-09-13] MEDS: HYDROcodone/APAP 5-325MG 1 EACH TAB PO SCH (09:07)
[2021-09-13] MEDS: ASPIRIN 81 MG PO SCH (09:07)
[2021-09-13] MEDS: PANTOPRAZOLE 40 MG TABLET PO SCH (09:08)
[2021-09-13] MEDS: carvediloL 3.125 MG TAB PO SCH ×2 (09:08→17:53)
[2021-09-13] MEDS: NICOTINE 21MG/24HR PATCH TRANSDERM SCH (09:08)
[2021-09-13] MEDS: OXYBUTYNIN CHLORIDE 5 MG TAB PO SCH (09:09)
[2021-09-13 11:32] VITALS: BP 107/50; PULSE 56; TEMP 97.8
[2021-09-13 11:55] LABS: Glucose,Whole Blood 103 mg/dL (75-99)
--- NOTE | 2021-09-13 16:59 | P.PN ---
Subjective Progress Note Date: 09/11/21 Principal diagnosis: Acute bilateral Pneumonia Pancytopenia Hyponatremia Coronary artery disease/chest pain 76-year-old gentleman,recently admitted with acute COPD exacerbation with tracheobronchitis , possible pneumonia,with past medical history of hype rlipidemia, osteoarthritis, depression, ongoing nicotine dependence, prior alcohol abuse, presented to the ER with complaints of right-sided intermittent "picky" chest pain, lasting 1-2 minutes, without accompanying symptoms. Maintaining O2 sats in the low to mid 80s on room air .Chest x-ray reporting no definite acute lung disease with clearing of some interstitial infiltrates and atelectasis at the lung bases compared to prior exam. Coronavirus not detected. Afebrile on admission, T-max 99.1, normal WBC, hemoglobin 11.1, platelets 117. D-dimer elevated, 1.49.CT reported interstitial infiltrates of the mid and lower lung golden, some coalescent density in the right lower lobe without pericardial or pleural effusions, no PE. Sodium 125, potassium 4, magnesium 1.7, bicarbonate 21 ,BUN 22, creatinine 0.89. LFTs within normal limits.EKG reported poor data quality, normal sinus rhythm. Troponin negative 1. 09/11/2021 Patient is seen and evaluated in room at bedside; continues to complain of shortness of breath with minimal activity Vital signs are reviewed and reveal temperature of 98.4, pulse 60, respiration 18 and blood pressure 544 with O2 saturation of 92% Lab review shows CBC of 4.5, hemoglobin 10.3, hematocrit 29.8 and platelet count of 113 Patient has been evaluated by hematology for pancytopenia; patient has had a negative workup in the past, no further workup is indicated; recommendations are to continue to monitor closely and supplement as needed Objective - Vital Signs Vital signs: Vital Signs Temp 98.4 F 09/11/21 11:47 Pulse 60 09/11/21 11:47 Resp 18 09/11/21 11:47 BP 100/44 09/11/21 11:47 Pulse Ox 92 L 09/11/21 11:47 Intake & Output 09/10/21 09/11/21 09/11/21 18:59 06:59 18:59 Intake Total 400 200 Output Total 2835 776 6373 Balance -1000 -650 -1750 Intake: Oral 400 200 Output: Urine 4939 649 7004 Other: Voiding Method Toilet Toilet Urinal Urinal # Voids 2 # Bowel Movements 1 - Exam GENERAL: Alert and oriented 3, Sitting up in bed, no acute distress HEENT: Conjunctivae normal. eyes normal. NECK: No JVD. No thyroid enlargement. No LNs CARDIOVASCULAR: S1, S2 regular.systolic murmur. RESPIRATION: Breath sounds diminished in the bases. Fine right basilar crackles. ABDOMEN: Soft, nontender . No guarding. no masses palpable. Positive Bowel sounds. LEGS: No edema. no swelling NERVOUS SYSTEM: Cranial N 2-12 grossly normal. Moves all 4 limbs. No focal deficits. Strength and sensation grossly intact. Skin: Warm and dry, no rash - Labs CBC & Chem 7: 09/11/21 05:12 09/10/21 05:08 Labs: Abnormal Lab Results - Last 24 Hours (Table) 09/10/21 09/10/21 09/11/21 Range/Units 17:22 20:01 05:12 RBC 3.11 L (4.30-5.90) m/uL Hgb 10.3 L (13.0-17.5) gm/dL Hct 29.8 L (39.0-53.0) % RDW 19.3 H (11.5-15.5) % Plt Count 113 L (150-450) k/uL POC Glucose (mg/dL) 123 H 165 H (75-99) mg/dL 09/11/21 Range/Units 11:56 RBC (4.30-5.90) m/uL Hgb (13.0-17.5) gm/dL Hct (39.0-53.0) % RDW (11.5-15.5) % Plt Count (150-450) k/uL POC Glucose (mg/dL) 107 H (75-99) mg/dL Microbiology - Last 24 Hours (Table) 09/10/21 10:46 Gram Stain - Preliminary Sputum Sputum Culture - Preliminary 09/08/21 04:42 Blood Culture - Preliminary Blood No Growth after 72 hours 09/08/21 01:30 Blood Culture - Preliminary Blood No Growth after 72 hours Assessment and Plan Assessment: Acute chest pain, atypical, serial troponins negative, in a patient with recent heart cath in May 2021 reporting severe disease of ostial left circumflex with maximizing medical treatment recommended. Acute bilateral pneumonia, in a patient recently admitted with acute COPD exacerbation with tracheobronchitis, possible pneumonia. Hyponatremia Pancytopenia in a patient with chronic iron deficient anemia, reports on FeSo4. Elevated d-dimer, CTA reported negative for PE. COPD Hyperlipidemia Osteoarthritis Depression Ongoing nicotine dependence, chews 4 cm ascending aortic aneurysm without dissection reported per CT, continue m onitoring outpatient Depression Patient remains on IV antibiotics in form of ceftriaxone 2 g IV daily; remains on Solu-Medrol 40 mg IV every 8 hours along with albuterol nebulizer treatments We will plan to consult hematology/oncology for worsening pancytopenia Patient's labs and blood work is reviewed
--- NOTE | 2021-09-13 17:01 | P.PN ---
Subjective Progress Note Date: 09/12/21 Principal diagnosis: Acute bilateral Pneumonia Pancytopenia Hyponatremia Coronary artery disease/chest pain 76-year-old gentleman,recently admitted with acute COPD exacerbation with tracheobronchitis , possible pneumonia,with past medical history of hype rlipidemia, osteoarthritis, depression, ongoing nicotine dependence, prior alcohol abuse, presented to the ER with complaints of right-sided intermittent "picky" chest pain, lasting 1-2 minutes, without accompanying symptoms. Maintaining O2 sats in the low to mid 80s on room air .Chest x-ray reporting no definite acute lung disease with clearing of some interstitial infiltrates and atelectasis at the lung bases compared to prior exam. Coronavirus not detected. Afebrile on admission, T-max 99.1, normal WBC, hemoglobin 11.1, platelets 117. D-dimer elevated, 1.49.CT reported interstitial infiltrates of the mid and lower lung golden, some coalescent density in the right lower lobe without pericardial or pleural effusions, no PE. Sodium 125, potassium 4, magnesium 1.7, bicarbonate 21 ,BUN 22, creatinine 0.89. LFTs within normal limits.EKG reported poor data quality, normal sinus rhythm. Troponin negative 1. 09/11/2021 Patient is seen and evaluated in room at bedside; continues to complain of shortness of breath with minimal activity Vital signs are reviewed and reveal temperature of 98.4, pulse 60, respiration 18 and blood pressure 544 with O2 saturation of 92% Lab review shows CBC of 4.5, hemoglobin 10.3, hematocrit 29.8 and platelet count of 113 Patient has been evaluated by hematology for pancytopenia; patient has had a negative workup in the past, no further workup is indicated; recommendations are to continue to monitor closely and supplement as needed 09/12/2021 Patient is seen and evaluated; complains of extreme weakness; reports some improvement in breathing Vital signs are stable with temperature of 97.9, pulse 56, respiration 18 and blood pressure of 94/52, O2 saturation improved to 94% Patient remains on IV Solu-Medrol 40 mg every 8 hours; continue with DuoNeb nebulizer treatments Objective - Vital Signs Vital signs: Vital Signs Temp 97.9 F 09/12/21 12:52 Pulse 56 L 09/12/21 12:52 Resp 18 09/12/21 12:52 BP 94/52 09/12/21 12:52 Pulse Ox 94 L 09/12/21 12:52 Intake & Output 09/11/21 09/12/21 09/12/21 18:59 06:59 18:59 Intake Total 1400 650 Output Total 1950 Balance -550 650 Intake: Intake, IV Titration 1000 50 Amount Sodium Chloride 0.9% 1, 1000 000 ml @ 100 mls/hr IV . Q10H [facility] Rx#:[id number] cefTRIAXone 2 gm In 50 Sodium Chloride 0.9% 50 ml @ 100 mls/hr IVPB Q24H [facility] Rx#:[id number] Oral 400 600 Output: Urine 1950 Other: Voiding Method Toilet Urinal # Voids 3 - Exam GENERAL: Alert and oriented 3, Sitting up in bed, no acute distress HEENT: Conjunctivae normal. eyes normal. NECK: No JVD. No thyroid enlargement. No LNs CARDIOVASCULAR: S1, S2 regular.systolic murmur. RESPIRATION: Breath sounds diminished in the bases. Fine right basilar crackles. ABDOMEN: Soft, nontender . No guarding. no masses palpable. Positive Bowel sounds. LEGS: No edema. no swelling NERVOUS SYSTEM: Cranial N 2-12 grossly normal. Moves all 4 limbs. No focal d eficits. Strength and sensation grossly intact. Skin: Warm and dry, no rash - Labs CBC & Chem 7: 09/11/21 05:12 09/10/21 05:08 Labs: Abnormal Lab Results - Last 24 Hours (Table) 09/11/21 09/11/21 09/12/21 Range/Units 17:10 20:08 07:36 POC Glucose (mg/dL) 175 H 163 H 137 H (75-99) mg/dL 09/12/21 Range/Units 12:26 POC Glucose (mg/dL) 131 H (75-99) mg/dL Microbiology - Last 24 Hours (Table) 09/10/21 10:46 Gram Stain - Final Sputum Sputum Culture - Final 09/08/21 04:42 Blood Culture - Preliminary Blood No Growth after 96 hours 09/08/21 01:30 Blood Culture - Preliminary Blood No Growth after 96 hours Assessment and Plan Assessment: Acute chest pain, atypical, serial troponins negative, in a patient with recent heart cath in May 2021 reporting severe disease of ostial left circumflex with maximizing medical treatment recommended. Acute bilateral pneumonia, in a patient recently admitted with acute COPD exacerbation with tracheobronchitis, possible pneumonia. Hyponatremia Pancytopenia in a patient with chronic iron deficient anemia, reports on FeSo4. Elevated d-dimer, CTA reported negative for PE. COPD Hyperlipidemia Osteoarthritis Depression Ongoing nicotine dependence, chews 4 cm ascending aortic aneurysm without dissection reported per CT, continue monitoring outpatient Depression Patient remains on IV antibiotics in form of ceftriaxone 2 g IV daily; remains on Solu-Medrol 40 mg IV every 8 hours along with albuterol nebulizer treatments We will plan to consult hematology/oncology for worsening pancytopenia Patient's labs and blood work is reviewed
[2021-09-13 17:23] LABS: Glucose,Whole Blood 129 mg/dL (75-99)
== END 2021-09-13 18:25 | disposition home health service (06) | DRG 194 ==
LOC: EC 20:45 → 5NMEDONC 09-08 00:40
PROVIDERS: ADMIT Family Medicine; ATTEND Family Medicine
DX: J18.9 Pneumonia, unspecified organism (principal); E87.1 Hypo-osmolality and hyponatremia; D61.818 Other pancytopenia; J44.0 Chronic obstructive pulmonary disease with (acute) lower respiratory infection; J44.1 Chronic obstructive pulmonary disease with (acute) exacerbation; I71.2 Thoracic aortic aneurysm, without rupture; D50.9 Iron deficiency anemia, unspecified; E78.5 Hyperlipidemia, unspecified; F10.11 Alcohol abuse, in remission; Z20.822 Contact with and (suspected) exposure to COVID-19; F32.A Depression, unspecified; I10 Essential (primary) hypertension; I25.10 Atherosclerotic heart disease of native coronary artery without angina pectoris; K21.9 Gastro-esophageal reflux disease without esophagitis; G89.29 Other chronic pain; M54.30 Sciatica, unspecified side; M54.9 Dorsalgia, unspecified; M54.2 Cervicalgia; N42.9 Disorder of prostate, unspecified; M19.90 Unspecified osteoarthritis, unspecified site; F17.220 Nicotine dependence, chewing tobacco, uncomplicated; Z71.6 Tobacco abuse counseling; Z79.82 Long term (current) use of aspirin; Z79.891 Long term (current) use of opiate analgesic; Z79.899 Other long term (current) drug therapy; Z87.01 Personal history of pneumonia (recurrent); Z88.2 Allergy status to sulfonamides; Z88.1 Allergy status to other antibiotic agents; Z91.040 Latex allergy status; Z82.49 Family history of ischemic heart disease and other diseases of the circulatory system; Z82.5 Family history of asthma and other chronic lower respiratory diseases; Z83.3 Family history of diabetes mellitus
CPT/HCPCS: 36415; 71046; 71275; 80048; 80053; 83735; 84145; 84484; 85025; 85379; 85610; 85730; 87040; 87070; 87205; 87449; 87635; 93005; 93306; 94640; 94760; 96374; 96375; 99285

== ENCOUNTER 2022-03-23 23:13 | Emergency (ER) | payer MEDICARE, OTHER ==
--- NOTE | 2022-03-23 23:18 | ED ---
Fall HPI - General Stated Complaint: Fall Time Seen by Provider: 03/23/22 23:16 Source: RN notes reviewed, old records reviewed Limitations: no limitations - History of Present Illness Initial Comments: This is a 76-year-old male to the emergency department for evaluation presents today for evaluation regards to fall fall off of a balcony landing into a jacobs hitting had abrasion left arm under alcohol intoxication and patient is on blood thinners. 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 Fall Witnessed: yes, by family, yes, by bystander Place Fall Occurred: home Loss of Consciousness: none Prolonged Down Time?: no Symptoms Prior to Fall: none Location: head, back Location - Extremities: Left: Elbow Severity: moderate Severity scale (1-10): 3 Quality: sharp Context: tripped/slipped, alcohol use Associated Symptoms: denies - Related Data Home Medications Medication Instructions Recorded Confirmed Aspirin [Adult Low Dose Aspirin EC] 81 mg PO DAILY 01/12/18 09/07/21 Citalopram Hydrobromide [CeleXA] 20 mg PO DAILY 01/18/18 09/07/21 Omeprazole 20 mg PO DAILY 01/18/18 09/07/21 Oxybutynin Chloride [Ditropan] 5 mg PO BID 01/18/18 09/07/21 Doxazosin [Cardura] 2 mg PO HS 07/22/21 09/07/21 HYDROcodone/APAP 10-325MG [[place]en 0.5 tab PO DAILY 07/22/21 09/07/21 10-325] Acetaminophen [Tylenol Extra 1,000 mg PO DAILY 09/07/21 09/07/21 Strength] Albuterol Inhaler [Ventolin Hfa 2 puff INHALATION RT-QID PRN 09/07/21 09/07/21 Inhaler] Rosuvastatin Calcium [Crestor] 5 mg PO DAILY 09/07/21 09/07/21 Spironolactone 50 mg PO DAILY 09/07/21 09/07/21 carvediloL [Coreg] 3.125 mg PO BID 09/07/21 09/07/21 lisinopriL [Zestril] 10 mg PO DAILY 09/07/21 09/07/21 Previous Rx's Medication Instructions Recorded Ipratropium-Albuterol Nebulize 3 ml INHALATION RT-QID PRN #120 ml 07/24/21 [Duoneb 0.5 mg-3 mg/3 ml Soln] Isosorbide Mononitrate ER [Imdur] 30 mg PO DAILY #30 tablet 09/13/21 predniSONE See Taper PO DIRECTED 9 Days 09/13/21 #21 tab Allergies Allergy/AdvReac Type Severity Reaction Status Date / Time clarithromycin [From Biaxin] Allergy purple Verified 09/07/21 23:38 blotches and skin peels latex Allergy Itching Verified 09/07/21 23:38 Sulfa (Sulfonamide Allergy Rash/Hives Verified 09/07/21 23:38 Antibiotics) Review of Systems ROS Statement: Those systems with pertinent positive or pertinent negative responses have been documented in the HPI. ROS Other: All systems not noted in ROS Statement are negative. Past Medical History Past Medical History: COPD, GERD/Reflux, Hyperlipidemia, Osteoarthritis (OA), Pneumonia, Prostate Disorder Additional Past Medical History / Comment(s): Has chronic back/neck and sciatica pain. Patient has prostate issues and wears a depends. History of Any Multi-Drug Resistant Organisms: None Reported Past Surgical History: Heart Catheterization Additional Past Surgical History / Comment(s): Right arm surgery in 1973 from major arm lacertions, colonoscopy. Past Anesthesia/Blood Transfusion Reactions: No Reported Reaction Smoking Status: Former smoker - Past Family History Mother Family Medical History: COPD Additional Family Medical History / Comment(s): Passed at age 52 Father Family Medical History: COPD, Coronary Artery Disease (CAD), Diabetes Mellitus Additional Family Medical History / Comment(s): at age 87. Was WWII . General Exam General appearance: alert, in no apparent distress, appears intoxicated Head exam: Present: atraumatic, normocephalic, normal inspection Eye exam: Present: normal appearance, PERRL, EOMI. Absent: scleral icterus, conjunctival injection, periorbital swelling ENT exam: Present: normal exam, mucous membranes moist Neck exam: Present: normal inspection. Absent: tenderness, meningismus, lymphadenopathy Respiratory exam: Present: normal lung sounds bilaterally. Absent: respiratory distress, wheezes, rales, rhonchi, stridor Cardiovascular Exam: Present: regular rate, normal rhythm, normal heart sounds. Absent: systolic murmur, diastolic murmur, rubs, gallop, clicks GI/Abdominal exam: Present: soft, normal bowel sounds. Absent: distended, tenderness, guarding, rebound, rigid Extremities exam: Present: normal inspection, full ROM, normal capillary refill. Absent: tenderness, pedal edema, joint swelling, calf tenderness Back exam: Present: normal inspection Neurological exam: Present: alert, oriented X3, CN II-XII intact Psychiatric exam: Present: normal affect, normal mood Skin exam: Present: warm, dry, intact, normal color. Absent: rash Course Vital Signs 03/23/22 23:17 Temperature 97.6 F Pulse Rate 81 Respiratory 16 Rate Blood Pressure 113/71 O2 Sat by Pulse 95 Oximetry - Reevaluation(s) Reevaluation #1: 03/23/22 23:31 Medical records reviewed Reevaluation #2: 03/24/22 01:01 Patient is in no acute distress, informed results and questions answered Reevaluation #3: 03/24/22 01:01 Patient requiring anything for pain Reevaluation #4: 03/24/22 01:02 Skin tear left elbow just requires bandage no treatment Medical Decision Making - Medical Decision Making 76 male to the emergency department trip and fall, intoxicated, no triadic injury is noted. Testing is otherwise negative patient's awake and alert ambulating around the emergency department in eating food. - Lab Data Result diagrams: 03/23/22 23:28 03/23/22 23:28 Lab Results 03/23/22 03/23/22 03/23/22 Range/Units 23:28 23:28 23:28 WBC 2.7 L (3.8-10.6) k/uL RBC 3.54 L (4.30-5.90) m/uL Hgb 11.5 L (13.0-17.5) gm/dL Hct 32.4 L (39.0-53.0) % MCV 91.5 (80.0-100.0) fL MCH 32.4 (25.0-35.0) pg MCHC 35.3 (31.0-37.0) g/dL RDW 20.2 H (11.5-15.5) % Plt Count 154 (150-450) k/uL MPV 10.0 Anisocytosis Moderate PT 10.9 (9.0-12.0) sec INR 1.0 (<1.2) APTT 22.2 (22.0-30.0) sec Sodium 134 L (137-145) mmol/L Potassium 4.1 (3.5-5.1) mmol/L Chloride 102 (98-107) mmol/L Carbon Dioxide 21 L (22-30) mmol/L Anion Gap 11 mmol/L BUN 19 (9-20) mg/dL Creatinine 0.86 (0.66-1.25) mg/dL Est GFR (CKD-EPI)AfAm >90 (>60 ml/min/1.73 sqM) Est GFR (CKD-EPI)NonAf 86 (>60 ml/min/1.73 sqM) Glucose 90 (74-99) mg/dL Calcium 8.8 (8.4-10.2) mg/dL Phosphorus 3.8 (2.5-4.5) mg/dL Magnesium 2.2 (1.6-2.3) mg/dL Total Bilirubin 0.6 (0.2-1.3) mg/dL AST 34 (17-59) U/L ALT 24 (4-49) U/L Alkaline Phosphatase 95 (38-126) U/L Troponin I (0.000-0.034) ng/mL Total Protein 6.6 (6.3-8.2) g/dL Albumin 4.3 (3.5-5.0) g/dL Lipase 79 (23-300) U/L Serum Alcohol 157 mg/dL 03/23/22 Range/Units 23:28 WBC (3.8-10.6) k/uL RBC (4.30-5.90) m/uL Hgb (13.0-17.5) gm/dL Hct (39.0-53.0) % MCV (80.0-100.0) fL MCH (25.0-35.0) pg MCHC (31.0-37.0) g/dL RDW (11.5-15.5) % Plt Count (150-450) k/uL MPV Anisocytosis PT (9.0-12.0) sec INR (<1.2) APTT (22.0-30.0) sec Sodium (137-145) mmol/L Potassium (3.5-5.1) mmol/L Chloride (98-107) mmol/L Carbon Dioxide (22-30) mmol/L Anion Gap mmol/L BUN (9-20) mg/dL Creatinine (0.66-1.25) mg/dL Est GFR (CKD-EPI)AfAm (>60 ml/min/1.73 sqM) Est GFR (CKD-EPI)NonAf (>60 ml/min/1.73 sqM) Glucose (74-99) mg/dL Calcium (8.4-10.2) mg/dL Phosphorus (2.5-4.5) mg/dL Magnesium (1.6-2.3) mg/dL Total Bilirubin (0.2-1.3) mg/dL AST (17-59) U/L ALT (4-49) U/L Alkaline Phosphatase (38-126) U/L Troponin I <0.012 (0.000-0.034) ng/mL Total Protein (6.3-8.2) g/dL Albumin (3.5-5.0) g/dL Lipase (23-300) U/L Serum Alcohol mg/dL - Radiology Data Radiology results: report reviewed (CT brain C-spine chest and pelvis and x-ray of elbow are negative for traumatic injury), image reviewed Disposition Clinical Impression: Fall, Alcohol intoxication, Left elbow contusion, Skin tear of left elbow without complication Disposition: HOME SELF-CARE Condition: Good Instructions (If sedation given, give patient instructions): Fall Prevention for Older Adults (ED) Is patient prescribed a controlled substance at d/c from ED?: No Referrals: Keri Ley DO [Primary Care Provider] - 1-2 days
[2022-03-23] MEDS ORDERED: SODIUM CHLORIDE 0.9% 1,000 ML IV STA (23:23)
[2022-03-23 23:33] VITALS: TEMP 97.6
[2022-03-23 23:46] LABS: Anisocytosis Moderate; HCT 32.4 % (39.0-53.0); HGB 11.5 gm/dL (13.0-17.5); MCH 32.4 pg (25.0-35.0); MCHC 35.3 g/dL (31.0-37.0); MCV 91.5 fL (80.0-100.0); Platelet Count 154 k/uL (150-450); RBC 3.54 m/uL (4.30-5.90); RDW 20.2 % (11.5-15.5); WBC 2.7 k/uL (3.8-10.6)
[2022-03-23 23:59] LABS: ALT 24 U/L (4-49); AST 34 U/L (17-59); African American GFR (CKD) >90 (>60 ml/min/1.73 sqM); Albumin 4.3 g/dL (3.5-5.0); Alkaline Phosphatase 95 U/L (38-126); Anion Gap 11 mmol/L; Blood Urea Nitrogen 19 mg/dL (9-20); Calcium 8.8 mg/dL (8.4-10.2); Carbon Dioxide 21 mmol/L (22-30); Chloride 102 mmol/L (98-107); Glucose 90 mg/dL (74-99); Lipase 79 U/L (23-300); Magnesium 2.2 mg/dL (1.6-2.3); Non-African American GFR(CKD) 86 (>60 ml/min/1.73 sqM); Phosphorus 3.8 mg/dL (2.5-4.5); Potassium 4.1 mmol/L (3.5-5.1); Sodium 134 mmol/L (137-145); Total Bilirubin 0.6 mg/dL (0.2-1.3); Total Protein 6.6 g/dL (6.3-8.2)
--- NOTE | 2022-03-23 23:59 | CT ---
EXAMINATION TYPE: CT brain enriqueine wo con DATE OF EXAM: 03/23/2022 COMPARISON: None HISTORY: Fall. CT DLP: 1379.3 mGycm Automated exposure control for dose reduction was used. Images of brain and cervical spine obtained with no contrast. Ventricles have normal size. There is no mass effect or midline shift. No sign of intracranial hemorr skylar. Calvarium is intact. The calvarium is intact. There is normal aeration of the mastoid sinuses. Skull base is intact. There is mild cerebral atrophy appropriate for age. The cervical vertebra have normal alignment. Posterior elements are intact. No compression fracture. The disc spaces are narrowed from C4 to C7 with mild spurring of the endplates. Facet joints are inta ct. No compression fracture. Prevertebral soft tissues are intact. IMPRESSION: Negative CT scan of the cervical spine. Spondylotic changes noted in the lower cervical spine. No fra cture. Mild cerebral atrophy. No acute intracranial abnormality.
[2022-03-24 00:01] LABS: Partial Thromboplastin Time 22.2 sec (22.0-30.0); Prothrombin Time 10.9 sec (9.0-12.0)
--- NOTE | 2022-03-24 00:04 | XR ---
EXAMINATION TYPE: XR elbow complete LT DATE OF EXAM: 03/23/2022 COMPARISON: NONE HISTORY: Elbow pain TECHNIQUE: 3 views FINDINGS: There is no fracture nor dislocation. There is spurring on the olecranon process of the uln a. No sign of elbow joint effusion. Joint spaces are fairly normal. No focal bone destruction. IMPRESSION: No acute ovale of the left elbow. No fracture
--- NOTE | 2022-03-24 00:06 | XR ---
EXAMINATION TYPE: XR pelvis AP view DATE OF EXAM: 03/23/2022 COMPARISON: 10/02/2010 HISTORY: Fall. Pain TECHNIQUE: Single view FINDINGS: Pelvic ring is intact. Proximal femurs and hip joints are intact. Sacroiliac joints are int act. IMPRESSION: Negative exam. No fracture.
[2022-03-24 00:07] LABS: Alcohol 157 mg/dL
--- NOTE | 2022-03-24 00:07 | XR ---
EXAMINATION TYPE: XR chest 1V DATE OF EXAM: 03/23/2022 COMPARISON: 09/07/2021 HISTORY: Fall. Pain TECHNIQUE: Single view FINDINGS: Heart is normal. Lungs are clear of infiltrate. No heart failure. Bony thorax is intact. IMPRESSION: No active cardiopulmonary disease. No change.
[2022-03-24 01:11] LABS: Band Neutrophils % 1 %; Basophils # (M) 0.03 k/uL (0-0.2); Eosinophils # (M) 0.11 k/uL (0-0.7); Lymphocytes # (M) 1.51 k/uL (1.0-4.8); Metamyelocytes # (M) 0.03 k/uL (0); Metamyelocytes % 1 %; Monocytes # (M) 0.24 k/uL (0-1.0); Neutrophils % (M) 31 %; Nucleated Red Blood Cells 0 /100 WBC (0-0); Total Cells Counted 200
[2022-03-24 01:13] LABS: Ovalocytes Present
[2022-03-24 01:15] LABS: RBC Fragments Present
[2022-03-24 01:16] LABS: Poikilocytosis (M) Present
[2022-03-24 01:17] LABS: Large Platelets Present
[2022-03-24 01:35] VITALS: BP 107/68; PULSE 86; RESP 18
== END 2022-03-24 02:03 | disposition home or self-care (01) ==
LOC: EC 23:13
DX: S51.012A Laceration without foreign body of left elbow, initial encounter (principal); F10.129 Alcohol abuse with intoxication, unspecified; J44.9 Chronic obstructive pulmonary disease, unspecified; E78.5 Hyperlipidemia, unspecified; K21.9 Gastro-esophageal reflux disease without esophagitis; M19.90 Unspecified osteoarthritis, unspecified site; Z87.891 Personal history of nicotine dependence; Z79.82 Long term (current) use of aspirin; Z79.51 Long term (current) use of inhaled steroids; Z79.899 Other long term (current) drug therapy; Y90.6 Blood alcohol level of 120-199 mg/100 ml; W13.0XXA Fall from, out of or through balcony, initial encounter; Y92.009 Unspecified place in unspecified non-institutional (private) residence as the place of occurrence of the external cause
CPT/HCPCS: 36415; 80053; 83690; 83735; 84100; 84484; 85025; 85610; 85730; 72170; 73080; 71045; 72125; 70450; 99284; 96360; 96361; G0480; 80320

== ENCOUNTER 2022-09-03 20:20 | Emergency (ER) | payer MEDICARE, OTHER ==
[2022-09-03 20:31] VITALS: RESP 16
--- NOTE | 2022-09-03 22:05 | XR ---
EXAMINATION TYPE: XR knee complete RT DATE OF EXAM: 09/03/2022 COMPARISON: NONE HISTORY: Pain TECHNIQUE: 3 views FINDINGS: There is no evidence of fracture nor dislocation. Joint spaces are normal. No significant j oint effusion IMPRESSION: Negative right knee exam. No fracture.
[2022-09-03] MEDS ORDERED: IBUPROFEN 600 MG STARTER PACK 4 TAB BTL PO STA (22:22)
--- NOTE | 2022-09-03 22:28 | ED ---
Lower Extremity Injury HPI - General Chief Complaint: Extremity Injury, Lower Stated Complaint: Fall, Right Knee Pain Time Seen by Provider: 09/03/22 21:25 Source: EMS Mode of arrival: EMS Limitations: no limitations - History of Present Illness Initial Comments: Patient is a 77-year-old male who presents to the emergency department with a chief complaint of right knee pain. Patient states he has been having issues with his right knee popping for the past month as well as intermittent pain. Today he this caused his right knee to give out. Patient fell onto his right knee this evening. He did not hit his head or lose consciousness. He does not use blood thinners. Patient reports pain over the front and sides of his knee. He was given morphine in the ambulance. Patient uses cane for assistance with walking which he states is due to prior concussion. - Related Data Home Medications Medication Instructions Recorded Confirmed Aspirin [Adult Low Dose Aspirin EC] 81 mg PO DAILY 01/12/18 09/07/21 Citalopram Hydrobromide [CeleXA] 20 mg PO DAILY 01/18/18 09/07/21 Omeprazole 20 mg PO DAILY 01/18/18 09/07/21 Oxybutynin Chloride [Ditropan] 5 mg PO BID 01/18/18 09/07/21 Doxazosin [Cardura] 2 mg PO HS 07/22/21 09/07/21 HYDROcodone/APAP 10-325MG [[place] 0.5 tab PO DAILY 07/22/21 09/07/21 10-325] Acetaminophen [Tylenol Extra 1,000 mg PO DAILY 09/07/21 09/07/21 Strength] Albuterol Inhaler [Ventolin Hfa 2 puff INHALATION RT-QID PRN 09/07/21 09/07/21 Inhaler] Rosuvastatin Calcium [Crestor] 5 mg PO DAILY 09/07/21 09/07/21 Spironolactone 50 mg PO DAILY 09/07/21 09/07/21 carvediloL [Coreg] 3.125 mg PO BID 09/07/21 09/07/21 lisinopriL [Zestril] 10 mg PO DAILY 09/07/21 09/07/21 Previous Rx's Medication Instructions Recorded Ipratropium-Albuterol Nebulize 3 ml INHALATION RT-QID PRN #120 ml 07/24/21 [Duoneb 0.5 mg-3 mg/3 ml Soln] Isosorbide Mononitrate ER [Imdur] 30 mg PO DAILY #30 tablet 09/13/21 predniSONE See Taper PO DIRECTED 9 Days 09/13/21 #21 tab Ibuprofen [Motrin] 600 mg PO Q8HR PRN #18 tab 09/03/22 Allergies Allergy/AdvReac Type Severity Reaction Status Date / Time clarithromycin [From Biaxin] Allergy purple Verified 09/07/21 23:38 blotches and skin peels latex Allergy Itching Verified 09/07/21 23:38 Sulfa (Sulfonamide Allergy Rash/Hives Verified 09/07/21 23:38 Antibiotics) Review of Systems ROS Statement: Those systems with pertinent positive or pertinent negative responses have been documented in the HPI. ROS Other: All systems not noted in ROS Statement are negative. Past Medical History Past Medical History: COPD, GERD/Reflux, Hyperlipidemia, Osteoarthritis (OA), Pneumonia, Prostate Disorder Additional Past Medical History / Comment(s): Has chronic back/neck and sciatica pain. Patient has prostate issues and wears a depends. History of Any Multi-Drug Resistant Organisms: None Reported Past Surgical History: Heart Catheterization Additional Past Surgical History / Comment(s): Right arm surgery in 1974 from major arm lacertions, colonoscopy. Past Anesthesia/Blood Transfusion Reactions: No Reported Reaction Past Psychological History: Depression Smoking Status: Former smoker - Past Family History Mother Family Medical History: COPD Additional Family Medical History / Comment(s): Passed at age 52 Father Family Medical History: COPD, Coronary Artery Disease (CAD), Diabetes Mellitus Additional Family Medical History / Comment(s): at age 87. Was WWII . General Exam Limitations: no limitations General appearance: alert, in no apparent distress Head exam: Present: atraumatic, normocephalic, normal inspection Respiratory exam: Present: normal lung sounds bilaterally. Absent: respiratory distress, wheezes, rales, rhonchi, stridor Cardiovascular Exam: Present: regular rate, normal rhythm, normal heart sounds. Absent: systolic murmur, diastolic murmur, rubs, gallop, clicks Right Upper Leg exam: Present: normal inspection, full ROM. Absent: tenderness, swelling Knee exam: Present: normal inspection, full ROM, tenderness (generalized ), ecchymosis (minimal ). Absent: swelling, abrasion, laceration, deformity, crepitus, dislocation, erythema, effusion, posterior draw sign, pain/laxity with valgus, pain/laxity with varus Lower Leg exam: Present: normal inspection, full ROM. Absent: tenderness, swelling Neurovascular tendon exam: Present: no vascular compromise. Absent: sensory deficit Neurological exam: Present: alert, oriented X3, CN II-XII intact Psychiatric exam: Present: normal affect, normal mood Skin exam: Present: warm, dry, intact, normal color. Absent: rash Course Vital Signs 09/03/22 09/03/22 09/03/22 20:24 22:10 22:39 Temperature 97.9 F 98.2 F 98.6 F Pulse Rate 79 76 74 Respiratory 16 16 16 Rate Blood Pressure 105/67 105/89 108/87 O2 Sat by Pulse 98 98 98 Oximetry Medical Decision Making - Medical Decision Making This is a 77-year-old male presenting with right knee injury. Right knee x-ray obtained interpreted by me which is negative for acute process. Pain controlled, no swelling or effusion. I suspect right knee contusion without ligament or tendon injury. Patient will be discharged with Motrin. Conservative management discussed. With prior orthopedic history in this knee, I will refer patient to retention specialist. He is to follow-up on Tuesday. Dr. Wilson is my attending. Disposition Clinical Impression: Fall, Right knee pain Disposition: HOME SELF-CARE Condition: Good Instructions (If sedation given, give patient instructions): Contusion in Adults (ED), P.R.I.C.E. Treatment (ED) Additional Instructions: Rest, ice, and elevate injury. Take medication as directed. Follow-up with retention specialist in 1-2 days. Return to the emergency department if you experience new, concerning, or worsening symptoms. Prescriptions: Ibuprofen [Motrin] 600 mg PO Q8HR PRN #18 tab PRN Reason: Pain Is patient prescribed a controlled substance at d/c from ED?: No Referrals: Gaviota Marshall NPC [Primary Care Provider] - 1-2 days Dakota Rocha MD [STAFF PHYSICIAN] - 1-2 days Time of Disposition: 22:27
[2022-09-03 22:40] VITALS: BP 108/87; PULSE 74; TEMP 98.6
== END 2022-09-03 22:39 | disposition home or self-care (01) ==
LOC: EC 20:20
DX: M25.561 Pain in right knee (principal); J44.9 Chronic obstructive pulmonary disease, unspecified; K21.9 Gastro-esophageal reflux disease without esophagitis; E78.5 Hyperlipidemia, unspecified; M19.90 Unspecified osteoarthritis, unspecified site; F32.A Depression, unspecified; Z87.891 Personal history of nicotine dependence; Z88.1 Allergy status to other antibiotic agents; Z91.040 Latex allergy status; Z88.2 Allergy status to sulfonamides; Z79.82 Long term (current) use of aspirin; Z79.899 Other long term (current) drug therapy; W18.30XA Fall on same level, unspecified, initial encounter
CPT/HCPCS: 99284

== ENCOUNTER → 2023-11-23 | Outpatient (CLI) | payer MEDICARE, OTHER ==
--- NOTE | 2023-11-24 17:18 | MR ---
EXAMINATION TYPE: MR brain wo/w con DATE OF EXAM: 11/23/2023 COMPARISON: NONE HISTORY: 78-year-old male R40.4, Syncope, abnormal gait, altered awareness. TECHNIQUE: Multiplanar, multisequence images of the brain and brainstem were acquired before and aft er administration of 8 mL IV Gadavist. Diffusion weighted imaging is performed. FINDINGS: No evidence for acute infarction, hemorrhage, mass, mass effect, midline shift, herniation, effacemen t of basal cisterns, or extra-axial fluid collection. Mild to moderate generalized supratentorial volume loss. No hydrocephalus. Major intracranial flow voids are intact. T2/FLAIR weighted sequences show moderate scattered and patchy bright white matter change throughout the subcortical, deep, and periventricular regions of both cervical hemispheres. 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 Midline structures demonstrate normal morphology. The craniocervical junction is normal. Post contrast images demonstrate no evidence of pathologic enhancement. Dural venous sinuses are pat ent. Moderate mucosal thickening ethmoid air cells. Globes are intact. IMPRESSION: 1. [id number] generalized cerebral atrophy and moderate burden of chronic small vessel ischemic disease. 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 2. No acute intracranial abnormality seen.
== END | disposition home or self-care (01) ==
LOC: RADMRIMAIN 08:52
PROVIDERS: ATTEND Family Medicine
DX: I67.82 Cerebral ischemia (principal); G31.9 Degenerative disease of nervous system, unspecified; R40.4 Transient alteration of awareness; R55 Syncope and collapse; R26.9 Unspecified abnormalities of gait and mobility
CPT/HCPCS: 70553; A9585

== ENCOUNTER 2024-03-27 15:05 | Emergency (ER) | payer MEDICARE, OTHER ==
--- NOTE | 2024-03-27 15:26 | ED ---
Upper Extremity HPI - General Chief Complaint: Extremity Injury, Upper Stated Complaint: L Arm Injury-Fall Time Seen by Provider: 03/27/24 15:12 Source: patient Mode of arrival: wheelchair Limitations: no limitations - History of Present Illness Initial Comments: 78-year-old male presents emergency department chief complaint of left hand injury. Patient states on Tuesday he was fishing when he slipped and fell catching with his left hand. He states painful, swollen denies any head injury no other extremity injuries patient had outpatient x-rays and sent here for evaluation - Related Data Home Medications Medication Instructions Recorded Confirmed Aspirin [Adult Low Dose Aspirin EC] 81 mg PO DAILY 01/12/18 09/07/21 Citalopram Hydrobromide [CeleXA] 20 mg PO DAILY 01/18/18 09/07/21 Omeprazole 20 mg PO DAILY 01/18/18 09/07/21 oxyBUTYnin chloride [Ditropan] 5 mg PO BID 01/18/18 09/07/21 Doxazosin [Cardura] 2 mg PO HS 07/22/21 09/07/21 HYDROcodone/APAP 10-325MG [[place] 0.5 tab PO DAILY 07/22/21 09/07/21 10-325] Acetaminophen [Tylenol Extra 1,000 mg PO DAILY 09/07/21 09/07/21 Strength] Albuterol Inhaler [Ventolin Hfa 2 puff INHALATION RT-QID PRN 09/07/21 09/07/21 Inhaler] Rosuvastatin Calcium [Crestor] 5 mg PO DAILY 09/07/21 09/07/21 Spironolactone 50 mg PO DAILY 09/07/21 09/07/21 carvediloL [Coreg] 3.125 mg PO BID 09/07/21 09/07/21 lisinopriL [Zestril] 10 mg PO DAILY 09/07/21 09/07/21 Previous Rx's Medication Instructions Recorded Ipratropium-Albuterol Nebulize 3 ml INHALATION RT-QID PRN #120 ml 07/24/21 [Duoneb 0.5 mg-3 mg/3 ml Soln] Isosorbide Mononitrate ER [Imdur] 30 mg PO DAILY #30 tablet 09/13/21 predniSONE See Taper PO DIRECTED 9 Days 09/13/21 #21 tab Ibuprofen [Motrin] 600 mg PO Q8HR PRN #18 tab 09/03/22 Allergies Allergy/AdvReac Type Severity Reaction Status Date / Time clarithromycin [From Biaxin] Allergy purple Verified 03/27/24 15:23 blotches and skin peels latex Allergy Itching Verified 03/27/24 15:23 Sulfa (Sulfonamide Allergy Rash/Hives Verified 03/27/24 15:23 Antibiotics) Review of Systems ROS Statement: Those systems with pertinent positive or pertinent negative responses have been documented in the HPI. ROS Other: All systems not noted in ROS Statement are negative. Past Medical History Past Medical History: COPD, GERD/Reflux, Hyperlipidemia, Osteoarthritis (OA), Pneumonia, Prostate Disorder Additional Past Medical History / Comment(s): Has chronic back/neck and sciatica pain. Patient has prostate issues and wears a depends. History of Any Multi-Drug Resistant Organisms: None Reported Past Surgical History: Heart Catheterization Additional Past Surgical History / Comment(s): Right arm surgery in 1973 from major arm lacertions, colonoscopy. Past Anesthesia/Blood Transfusion Reactions: No Reported Reaction Past Psychological History: Depression Smoking Status: Former smoker - Past Family History Mother Family Medical History: COPD Additional Family Medical History / Comment(s): Passed at age 52 Father Family Medical History: COPD, Coronary Artery Disease (CAD), Diabetes Mellitus Additional Family Medical History / Comment(s): at age 87. Was WWII . General Exam Limitations: no limitations General appearance: alert, in no apparent distress Head exam: Present: atraumatic, normocephalic, normal inspection Eye exam: Present: normal appearance, PERRL, EOMI. Absent: scleral icterus, conjunctival injection, periorbital swelling ENT exam: Present: normal exam, normal oropharynx, mucous membranes moist Neck exam: Present: normal inspection, full ROM. Absent: tenderness, meningismus, lymphadenopathy Respiratory exam: Present: normal lung sounds bilaterally. Absent: respiratory distress, wheezes, rales, rhonchi, stridor Cardiovascular Exam: Present: regular rate, normal rhythm, normal heart sounds. Absent: systolic murmur, diastolic murmur, rubs, gallop, clicks Extremities exam: Present: other (Left hand there is moderate swelling, ecchymosis noted tenderness over the fifth metacarpal region neurovascular intact no wrist tenderness) Course Vital Signs 03/27/24 15:20 Temperature 98.2 F Pulse Rate 75 Respiratory 16 Rate Blood Pressure 107/66 O2 Sat by Pulse 95 Oximetry Procedures - Orthopedic Splinting/Casting Injury #1 Side: left Upper Extremity Injury Location: short arm, hand Upper Extremity Immobilizer: ulnar gutter, synthetic pre-padded splint Medical Decision Making - Medical Decision Making Was pt. sent in by a medical professional or institution (, MARIEL, TRANSACTION ADVISORY SERVICES MANAGER, urgent care, hospital, or shelter...) When possible be specific @ -PCP Did you speak to anyone other than the patient for history (EMS, parent, family, police, friend...)? What history was obtained from this source @ -No Did you review nursing and triage notes (agree or disagree)? Why? @ -I reviewed and agree with nursing and triage notes Were old charts reviewed (outside hosp., previous admission, EMS record, old EKG, old radiological studies, urgent care reports/EKG's, shelter records)? Report findings @ -[Reviewed outpatient x-rays from today showing left fifth metacarpal fracture Differential Diagnosis (chest pain, altered mental status, abdominal pain women, abdominal pain men, vaginal bleeding, weakness, fever, dyspnea, syncope, headache, dizziness, GI bleed, back pain, seizure, CVA, palpatations, mental health, musculoskeletal)? @Hand sprain, hand fracture EKG interpreted by me (3pts min.). @ -None X-rays interpreted by me (1pt min.). @ -None done CT interpreted by me (1pt min.). @ -None done U/S interpreted by me (1pt. min.). @ -None done What testing was considered but not performed or refused? (CT, X-rays, U/S, labs)? Why? @ -None What meds were considered but not given or refused? Why? @ -None Did you discuss the management of the patient with other professionals (professionals i.e. MARIEL Levy, TRANSACTION ADVISORY SERVICES MANAGER, lab, RT, psych nurse, social media senior associate, auction block clerk, teacher, sales officer, vocational case manager)? Give summary @ -No Was smoking cessation discussed for >3mins.? @ -No Was critical care preformed (if so, how long)? @ -No Were there social determinants of health that impacted care today? How? (Homelessness, low income, unemployed, alcoholism, drug addiction, transportation, low edu. Level, literacy, decrease access to med. care, shelter, rehab)? @ -No Was there de-escalation of care discussed even if they declined (Discuss DNR or withdrawal of care, Hospice)? DNR status @ -No What co-morbidities impacted this encounter? (DM, HTN, Smoking, COPD, CAD, Cancer, CVA, ARF, Chemo, Hep., AIDS, mental health diagnosis, sleep apnea, morbid obesity)? @ -None Was patient admitted / discharged? Hospital course, mention meds given and route, prescriptions, significant lab abnormalities, going to OR and other pertinent info. @Discharge patient had left hand fracture splinted and will follow-up with orthopedics. Undiagnosed new problem with uncertain prognosis? @ -No Drug Therapy requiring intensive monitoring for toxicity (Heparin, Nitro, Insulin, Cardizem)? @ -No Were any procedures done? @ -Splinting Diagnosis/symptom? @ -Left foot metacarpal fracture Acute, or Chronic, or Acute on Chronic? @ -Acute Uncomplicated (without systemic symptoms) or Complicated (systemic symptoms)? @ -Uncomplicated Side effects of treatment? @ -No Exacerbation, Progression, or Severe Exacerbation? @ -No Poses a threat to life or bodily function? How? (Chest pain, [place], [place], pneumonia, PE, COPD, DKA, ARF, appy, cholecystitis, CVA, Diverticulitis, Homicidal, Suicidal, threat to staff... and all critical care pts) @ -No Disposition Clinical Impression: Fracture of fifth metacarpal bone of left hand Disposition: HOME SELF-CARE Condition: Stable Instructions (If sedation given, give patient instructions): Hand Fracture (ED) Additional Instructions: Please return to the Emergency Department if symptoms worsen or any other concerns. Is patient prescribed a controlled substance at d/c from ED?: No Referrals: Jose Obrien MD [Primary Care Provider] - 1-2 days Toni Spring DO [Doctor of Osteopathic Medicine] - 1-2 days Time of Disposition: 15:26
[2024-03-27] MEDS: HYDROcodone/APAP 7.5-325MG 1 EACH TAB PO ONE (15:28)
[2024-03-27 15:47] VITALS: BP 107/66; PULSE 75; RESP 16; TEMP 98.2
== END 2024-03-27 15:43 | disposition home or self-care (01) ==
LOC: EC 15:05
DX: S62.307A Unspecified fracture of fifth metacarpal bone, left hand, initial encounter for closed fracture (principal); Z88.1 Allergy status to other antibiotic agents; Z88.2 Allergy status to sulfonamides; Z91.040 Latex allergy status; Z87.891 Personal history of nicotine dependence; W01.0XXA Fall on same level from slipping, tripping and stumbling without subsequent striking against object, initial encounter
CPT/HCPCS: 29125; 99283

== ENCOUNTER 2024-07-03 11:01 | Day surgery (SDC) | payer MEDICARE ==
[2024-07-03 11:52] VITALS: TEMP 98
[2024-07-03] MEDS: IV FLUID CONTINUATION 1,000 ML IV ONE (11:55)
[2024-07-03] MEDS: LACTATED RINGERS 1,000 ML IV SCH (11:55)
[2024-07-03] MEDS ORDERED: PROPOFOL 10 MG/ML 20 ML VIAL IV ONE (12:07)
[2024-07-03] MEDS: LIDOCAINE 2% INJ 20 MG/ML SQ ONE (12:17)
--- NOTE | 2024-07-03 12:53 | OP ---
OPERATIVE REPORT DATE OF SERVICE : 07/03/2024 PROCEDURE: Bone marrow aspirate and biopsy. INDICATION: Pancytopenia. DESCRIPTION OF PROCEDURE: After obtaining consent from the patient, the procedure was performed in the endoscopy suite under general anesthesia performed by anesthesia team. The patient was put in the left lateral decubital position. The right posterior iliac crest was localized. Skin was prepped with ChloraPrep. All sterile procedures were followed. 2 mL of 2% xylocaine was used for local anesthetic. Jamshidi needle was inserted. 15 mL of aspirate and 1.5 cm core biopsy was obtained without any difficulties. Pressure applied afterwards. There was negligible blood loss. The patient tolerated the procedure very well without any immediate complications. MMODL / IJN: [id number] /
[2024-07-03 13:00] LABS: Anisocytosis Moderate; HCT 33.4 % (39.0-53.0); HGB 11.3 gm/dL (13.0-17.5); MCH 28.8 pg (25.0-35.0); MCHC 33.8 g/dL (31.0-37.0); MCV 85.4 fL (80.0-100.0); Mean Platelet Volume 7.6; Microcytosis Slight; Poikilocytosis Slight; RBC 3.91 m/uL (4.30-5.90); RDW 21.6 % (11.5-15.5); Reticulocyte % 1.4 % (0.5-2.0); WBC 3.3 k/uL (3.8-10.6)
[2024-07-03 13:02] VITALS: BP 108/67; PULSE 67; RESP 20
[2024-07-03 13:25] LABS: Platelet Count 53 k/uL (150-450)
[2024-07-03 13:51] LABS: Basophils # (M) 0.03 k/uL (0-0.2); Blast Cells # (M) 0.07 k/uL (0); Lymphocytes # (M) 1.06 k/uL (1.0-4.8); Metamyelocytes # (M) 0.03 k/uL (0); Metamyelocytes % 1 %; Monocytes # (M) 0.23 k/uL (0-1.0); Myelocytes # (M) 0.03 k/uL (0); Myelocytes % 1 %; Neutrophils # (M) 1.95 k/uL (1.3-7.7); Neutrophils % (M) 59 %; Nucleated Red Blood Cells 0 /100 WBC (0-0); Total Cells Counted 200
[2024-07-03 14:00] LABS: RBC Fragments Present; Tear Drop Cells Present
== END 2024-07-03 13:16 | disposition home or self-care (01) ==
LOC: OR 11:01
PROVIDERS: ATTEND Internal Medicine Hematology & Oncology
DX: D61.818 Other pancytopenia
CPT/HCPCS: 38222; 85025; 85045

== ENCOUNTER 2024-11-13 14:11 | Inpatient (IN) | payer MEDICARE, OTHER ==
[2024-11-13] MEDS ORDERED: NALOXONE 0.4 MG/ML 1 ML VIAL IV PRN (15:12)
[2024-11-13] MEDS ORDERED: ONDANSETRON 4 MG/2 ML VIAL IVP PRN (15:12)
--- NOTE | 2024-11-13 15:12 | ED ---
General Adult HPI - General Source: patient, RN notes reviewed Mode of arrival: ambulatory Limitations: no limitations <Jayden Saeed - Last Filed: 11/13/24 15:08> - General Source: patient, RN notes reviewed, old records reviewed Mode of arrival: ambulatory Limitations: no limitations <Dionte Wilson - Last Filed: 11/13/24 16:14> - General Chief complaint: Recheck/Abnormal Lab/Rx Stated complaint: refferal - irregularity in blood Time Seen by Provider: 11/13/24 14:32 - History of Present Illness Initial comments: 79-year-old male presents emergency department from oncology's for admission. Patient was started on a new medication called Inqovi in which this is made up of 2 medications. Patient takes this 5 times once a month. Patient reportedly had a drop in his hemoglobin by 3 g, current white count 1.2, platelets 13 with increasing abdominal bruising, thrush and will require irrigated blood. Patient states he feels weak, rundown. Patient has MDS. Patient denies any fevers. (Jayden Saeed) 79 male for recheck outpatient abnormal lab tests (Dionte Wilson) - Related Data Home Medications Medication Instructions Recorded Confirmed Aspirin [Adult Low Dose Aspirin EC] 81 mg PO DAILY 01/12/18 06/28/24 Citalopram Hydrobromide [CeleXA] 20 mg PO DAILY 01/18/18 06/28/24 Omeprazole 20 mg PO DAILY 01/18/18 06/28/24 oxyBUTYnin chloride [Ditropan] 5 mg PO BID 01/18/18 06/28/24 Doxazosin [Cardura] 2 mg PO HS 07/22/21 06/28/24 Albuterol Inhaler [Ventolin Hfa 2 puff INHALATION RT-QID PRN 09/07/21 06/28/24 Inhaler] Rosuvastatin Calcium [Crestor] 10 mg PO DAILY 09/07/21 06/28/24 carvediloL [Coreg] 2 tab PO DAILY 09/07/21 06/28/24 lisinopriL [Zestril] 10 mg PO DAILY 09/07/21 06/28/24 [place] 300 mg PO DAILY 06/14/24 06/28/24 Acetaminophen 500 mg PO DAILY 06/28/24 06/28/24 Albuterol Nebulized [Ventolin 1 inh INHALATION TID PRN 06/28/24 06/28/24 Nebulized] Calcium Phos/D3/Magnesium/Zinc 1 tab PO DAILY 06/28/24 06/28/24 [Ykevbcs-Pwh-Yfth-Vitamin D3] Cholecalciferol [Vitamin D3 (25 50 mcg PO DAILY 06/28/24 06/28/24 Mcg = 1000 Iu)] Cyanocobalamin [Vitamin B-12] 1 tab PO DAILY 06/28/24 06/28/24 Doxazosin Mesylate [Cardura] 2 mg PO HS 06/28/24 06/28/24 Ferrous Sulfate [Iron (65 MG 1 tab PO DAILY 06/28/24 06/28/24 Elemental)] HYDROcodone/APAP 10-325MG [[place] 1 tab PO Q8H PRN 06/28/24 06/28/24 10-325] Healthy Plus For Memory 1 tab PO DAILY 06/28/24 Meclizine HCl 12.5 mg PO DAILY PRN 06/28/24 06/28/24 Mirabegron [Myrbetriq] 1 tab PO DAILY 06/28/24 06/28/24 Multivitamin [Multivitamins Adult 1 tab PO DAILY 06/28/24 06/28/24 Gummies] Multivitamin [Multivitamins Adult 1 tab PO DAILY 06/28/24 06/28/24 Gummies] Vibegron [Gemtesa] 75 mg PO HS 06/28/24 06/28/24 Zinc Gluconate [Zinc] 50 mg PO DAILY 06/28/24 06/28/24 Previous Rx's Medication Instructions Recorded Ipratropium-Albuterol Nebulize 3 ml INHALATION RT-QID PRN #120 ml 07/24/21 [Duoneb 0.5 mg-3 mg/3 ml Soln] Allergies Allergy/AdvReac Type Severity Reaction Status Date / Time clarithromycin [From Biaxin] Allergy purple Verified 11/13/24 14:21 blotches and skin peels Latex, Natural Rubber Allergy Rash/Hives Verified 11/13/24 14:21 Review of Systems ROS Other: All systems not noted in ROS Statement are negative. <Jayden Saeed - Last Filed: 11/13/24 15:08> ROS Other: All systems not noted in ROS Statement are negative. <Dionte Wilson - Last Filed: 11/13/24 16:14> ROS Statement: Those systems with pertinent positive or pertinent negative responses have been documented in the HPI. Past Medical History Past Medical History: COPD, GERD/Reflux, Hyperlipidemia, Hypertension, Osteoarthritis (OA), Pneumonia, Prostate Disorder Additional Past Medical History / Comment(s): Has chronic back/neck and sciatica pain, BPH, varicose veins History of Any Multi-Drug Resistant Organisms: None Reported Past Surgical History: Heart Catheterization Additional Past Surgical History / Comment(s): Right arm surgery in 1973 from major arm lacertions, colonoscopies, thrombocytopenia, "low energy level" Past Anesthesia/Blood Transfusion Reactions: No Reported Reaction Past Psychological History: Depression Smoking Status: Former smoker Past Alcohol Use History: None Reported Past Drug Use History: None Reported - Past Family History Mother Family Medical History: COPD Additional Family Medical History / Comment(s): Passed at age 52 Father Family Medical History: COPD, Coronary Artery Disease (CAD), Diabetes Mellitus Additional Family Medical History / Comment(s): at age 87. Was WWII . <Jayden Saeed - Last Filed: 11/13/24 15:08> General Exam Limitations: no limitations General appearance: alert, in no apparent distress Head exam: Present: atraumatic, normocephalic, normal inspection Eye exam: Present: normal appearance, PERRL, EOMI. Absent: scleral icterus, conjunctival injection, periorbital swelling ENT exam: Present: mucous membranes moist, TM's normal bilaterally. Absent: normal oropharynx (Right tongue coating) Neck exam: Present: normal inspection, full ROM. Absent: tenderness, meningismu s, lymphadenopathy Respiratory exam: Present: normal lung sounds bilaterally. Absent: respiratory distress, wheezes, rales, rhonchi, stridor Cardiovascular Exam: Present: regular rate, normal rhythm, normal heart sounds. Absent: systolic murmur, diastolic murmur, rubs, gallop, clicks GI/Abdominal exam: Present: soft, normal bowel sounds, other (Bruising noted). Absent: distended, tenderness, guarding, rebound, rigid Neurological exam: Present: alert, oriented X3 <Jayden Saeed - Last Filed: 11/13/24 15:08> General appearance: alert, in no apparent distress Head exam: Present: atraumatic, normocephalic, normal inspection Eye exam: Present: normal appearance, PERRL, EOMI. Absent: scleral icterus, con junctival injection, periorbital swelling ENT exam: Present: normal exam, mucous membranes moist Neck exam: Present: normal inspection. Absent: tenderness, meningismus, lymphadenopathy Respiratory exam: Present: normal lung sounds bilaterally. Absent: respiratory distress, wheezes, rales, rhonchi, stridor Cardiovascular Exam: Present: regular rate, normal rhythm, normal heart sounds. Absent: systolic murmur, diastolic murmur, rubs, gallop, clicks GI/Abdominal exam: Present: soft, normal bowel sounds. Absent: distended, tenderness, guarding, rebound, rigid Extremities exam: Present: normal inspection, full ROM, normal capillary refill. Absent: tenderness, pedal edema, joint swelling, calf tenderness Back exam: Present: normal inspection Neurological exam: Present: alert, oriented X3, CN II-XII intact Psychiatric exam: Present: normal affect, normal mood Skin exam: Present: warm, dry, intact, normal color. Absent: rash <Dionte Wilson - Last Filed: 11/13/24 16:14> Course Vital Signs 11/13/24 14:16 Temperature 98.2 F Pulse Rate 68 Respiratory 18 Rate Blood Pressure 88/51 O2 Sat by Pulse 96 Oximetry Medical Decision Making <Jayden Saeed M - Last Filed: 11/13/24 15:08> - Lab Data Result diagrams: 11/13/24 15:01 11/13/24 15:01 <Dionte Wilson - Last Filed: 11/13/24 16:14> - Medical Decision Making Was pt. sent in by a medical professional or institution (, PA, HYBRID CAR MECHANIC, urgent c are, hospital, or prison...) When possible be specific @ -Oncology Did you speak to anyone other than the patient for history (EMS, parent, family, police, friend...)? What history was obtained from this source @ -No Did you review nursing and triage notes (agree or disagree)? Why? @ -I reviewed and agree with nursing and triage notes Were old charts reviewed (outside hosp., previous admission, EMS record, old EKG, old radiological studies, urgent care reports/EKG's, prison records)? Report findings @ -No old charts were reviewed Differential Diagnosis (chest pain, altered mental status, abdominal pain women, abdominal pain men, vaginal bleeding, weakness, fever, dyspnea, syncope, headache, dizziness, GI bleed, back pain, seizure, CVA, palpatations, mental health, musculoskeletal)? @ -Thrombocytopenia, pancytopenia, medication reaction, MDS EKG interpreted by me (3pts min.). @ -None X-rays interpreted by me (1pt min.). @ -None done CT interpreted by me (1pt min.). @ -None done U/S interpreted by me (1pt. min.). @ -None done What testing was considered but not performed or refused? (CT, X-rays, U/S, labs)? Why? @ -None What meds were considered but not given or refused? Why? @ -None Did you discuss the management of the patient with other professionals (professionals i.e. , PA, HYBRID CAR MECHANIC, lab, RT, psych nurse, social media director, administrative coordinator, teacher, assault amphibious vehicle officer, pillowcase cleaner)? Give summary @ -[facility]H for admission Was smoking cessation discussed for >3mins.? @ -No Was critical care preformed (if so, how long)? @ -No Were there social determinants of health that impacted care today? How? (Homelessness, low income, unemployed, alcoholism, drug addiction, transportation, low edu. Level, literacy, decrease access to med. care, retirement, rehab)? @ -No Was there de-escalation of care discussed even if they declined (Discuss DNR or withdrawal of care, Hospice)? DNR status @ -No What co-morbidities impacted this encounter? (DM, HTN, Smoking, COPD, CAD, Cancer, CVA, ARF, Chemo, Hep., AIDS, mental health diagnosis, sleep apnea, morbid obesity)? @ -MDS Was patient admitted / discharged? Hospital course, mention meds given and route, prescriptions, significant lab abnormalities, going to OR and other pertinent info. @ -Admitted patient has pancytopenia and, patient's had significant drop in his counts will be admitted for possible transfusion, will need treatment for thrush and further evaluation by oncology. Undiagnosed new problem with uncertain prognosis? @ -Yes Drug Therapy requiring intensive monitoring for toxicity (Heparin, Nitro, Insulin, Cardizem)? @ -No Were any procedures done? @ -No Diagnosis/symptom? @ -MDS, pancytopenia, thrush Acute, or Chronic, or Acute on Chronic? @ -Acute Uncomplicated (without systemic symptoms) or Complicated (systemic symptoms)? @ -Complicated Side effects of treatment? @ -No Exacerbation, Progression, or Severe Exacerbation? @ -No Poses a threat to life or bodily function? How? (Chest pain, [place], [place], pneumonia, PE, COPD, DKA, ARF, appy, cholecystitis, CVA, Diverticulitis, Homicidal, Suicidal, threat to staff... and all critical care pts) @ -yes pancytopenia (Jayden Saeed) 79 male to be admitted follow-up outpatient abnormal lab values with significant pancytopenia here in the emergency department (Dionte Wilson) - Lab Data Lab Results 11/13/24 11/13/24 11/13/24 Range/Units 15:01 15:01 15:01 WBC 1.5 L (3.8-10.6) k/uL RBC 3.35 L (4.30-5.90) m/uL Hgb 9.5 L (13.0-17.5) gm/dL Hct 28.6 L (39.0-53.0) % MCV 85.5 (80.0-100.0) fL MCH 28.4 (25.0-35.0) pg MCHC 33.2 (31.0-37.0) g/dL RDW 21.4 H (11.5-15.5) % Plt Count 13 L* (150-450) k/uL MPV 8.8 Neutrophils % (Manual) 21 % Lymphocytes % (Manual) 74 % Monocytes % (Manual) 5 % Neutrophils # HYBRID CAR MECHANIC Neutrophils # (Manual) 0.32 L* (1.3-7.7) k/uL Lymphocytes # (Manual) 1.11 (1.0-4.8) k/uL Monocytes # (Manual) 0.08 (0-1.0) k/uL Nucleated RBCs 1 H (0-0) /100 WBC Manual Slide Review Performed Polychromasia Present Poikilocytosis Slight Anisocytosis Moderate Microcytosis Slight Ovalocytes Present PT 10.4 (10.0-12.5) sec INR 0.9 (<1.2) APTT 28.8 (22.0-30.0) sec Sodium 132 L (137-145) mmol/L Potassium 4.9 (3.5-5.1) mmol/L Chloride 97 L (98-107) mmol/L Carbon Dioxide 26 (22-30) mmol/L Anion Gap 9 mmol/L BUN 34 H (9-20) mg/dL Creatinine 1.34 H (0.66-1.25) mg/dL Est GFR (CKD-EPI)AfAm 59 (>60 ml/min/1.73 sqM) Est GFR (CKD-EPI)NonAf 51 (>60 ml/min/1.73 sqM) Glucose 94 (74-99) mg/dL Calcium 9.4 (8.4-10.2) mg/dL Magnesium 2.3 (1.6-2.3) mg/dL Total Bilirubin 1.0 (0.2-1.3) mg/dL AST 23 (17-59) U/L ALT 20 (4-49) U/L Alkaline Phosphatase 86 (38-126) U/L Total Protein 6.8 (6.3-8.2) g/dL Albumin 4.2 (3.5-5.0) g/dL Blood Type Blood Type Recheck Bld Type Recheck Status Antibody Screen Spec Expiration Date 11/13/24 Range/Units 15:05 WBC (3.8-10.6) k/uL RBC (4.30-5.90) m/uL Hgb (13.0-17.5) gm/dL Hct (39.0-53.0) % MCV (80.0-100.0) fL MCH (25.0-35.0) pg MCHC (31.0-37.0) g/dL RDW (11.5-15.5) % Plt Count (150-450) k/uL MPV Neutrophils % (Manual) % Lymphocytes % (Manual) % Monocytes % (Manual) % Neutrophils # Neutrophils # (Manual) (1.3-7.7) k/uL Lymphocytes # (Manual) (1.0-4.8) k/uL Monocytes # (Manual) (0-1.0) k/uL Nucleated RBCs (0-0) /100 WBC Manual Slide Review Polychromasia Poikilocytosis Anisocytosis Microcytosis Ovalocytes PT (10.0-12.5) sec INR (<1.2) APTT (22.0-30.0) sec Sodium (137-145) mmol/L Potassium (3.5-5.1) mmol/L Chloride (98-107) mmol/L Carbon Dioxide (22-30) mmol/L Anion Gap mmol/L BUN (9-20) mg/dL Creatinine (0.66-1.25) mg/dL Est GFR (CKD-EPI)AfAm (>60 ml/min/1.73 sqM) Est GFR (CKD-EPI)NonAf (>60 ml/min/1.73 sqM) Glucose (74-99) mg/dL Calcium (8.4-10.2) mg/dL Magnesium (1.6-2.3) mg/dL Total Bilirubin (0.2-1.3) mg/dL AST (17-59) U/L ALT (4-49) U/L Alkaline Phosphatase (38-126) U/L Total Protein (6.3-8.2) g/dL Albumin (3.5-5.0) g/dL Blood Type O Positive Blood Type Recheck O Pos Bld Type Recheck Status No Antibody Screen NEGATIVE Spec Expiration Date 11/16/2024 - 2304 Disposition Time of Disposition: 15:12 <Jayden Saeed - Last Filed: 11/13/24 15:08> Is patient prescribed a controlled substance at d/c from ED?: No <Dionte Wilson - Last Filed: 11/13/24 16:14> Clinical Impression: Pancytopenia, Weakness, MDS (myelodysplastic syndrome) Disposition[facility] Condition: Fair Referrals: Keri Ley DO [Primary Care Provider] - 1-2 days
[2024-11-13 15:26] LABS: INR 0.9 (<1.2); Partial Thromboplastin Time 28.8 sec (22.0-30.0); Prothrombin Time 10.4 sec (10.0-12.5)
[2024-11-13 15:28] LABS: ALT 20 U/L (4-49); AST 23 U/L (17-59); African American GFR (CKD) 59 (>60 ml/min/1.73 sqM); Albumin 4.2 g/dL (3.5-5.0); Alkaline Phosphatase 86 U/L (38-126); Anion Gap 9 mmol/L; Blood Urea Nitrogen 34 mg/dL (9-20); Calcium 9.4 mg/dL (8.4-10.2); Carbon Dioxide 26 mmol/L (22-30); Chloride 97 mmol/L (98-107); Glucose 94 mg/dL (74-99); Magnesium 2.3 mg/dL (1.6-2.3); Non-African American GFR(CKD) 51 (>60 ml/min/1.73 sqM); Potassium 4.9 mmol/L (3.5-5.1); Sodium 132 mmol/L (137-145); Total Protein 6.8 g/dL (6.3-8.2)
[2024-11-13 15:40] LABS: Anisocytosis Moderate; HCT 28.6 % (39.0-53.0); HGB 9.5 gm/dL (13.0-17.5); MCH 28.4 pg (25.0-35.0); MCHC 33.2 g/dL (31.0-37.0); MCV 85.5 fL (80.0-100.0); Mean Platelet Volume 8.8; Microcytosis Slight; Poikilocytosis Slight; RBC 3.35 m/uL (4.30-5.90); RDW 21.4 % (11.5-15.5); WBC 1.5 k/uL (3.8-10.6)
[2024-11-13] MEDS: SODIUM CHLORIDE 0.9% 500 ML 500 ML IV ONE (15:49)
[2024-11-13 15:58] LABS: Lymphocytes # (M) 1.11 k/uL (1.0-4.8); Monocytes # (M) 0.08 k/uL (0-1.0); Neutrophils # (M) 0.32 k/uL (1.3-7.7); Neutrophils % (M) 21 %; Nucleated Red Blood Cells 1 /100 WBC (0-0); Platelet Count 13 k/uL (150-450); Total Cells Counted 100
[2024-11-13 15:59] LABS: Ovalocytes Present; Polychromasia Present
[2024-11-13] MEDS: NYSTATIN 100,000 UNIT/ML SUSP 500,000 UNIT/5 ML CUP PO SCH (19:28)
[2024-11-14 07:30] LABS: Appearance,Urine Clear (Clear); Bilirubin,Urine Negative (Negative); Blood,Urine Negative (Negative); Color,Urine Yellow; Glucose,Urine (UA) Negative (Negative); Ketones,Urine Negative (Negative); Leukocyte Esterase,Urine Negative (Negative); Nitrite,Urine Negative (Negative); PH, Urine 5.5 (5.0-8.0); Protein,Urine Negative (Negative); Specific Gravity,Urine 1.021 (1.001-1.035); Urobilinogen,Urine <2.0 mg/dL (<2.0)
[2024-11-14] MEDS: SODIUM CHLORIDE 0.9% 1,000 ML IV SCH (08:35)
[2024-11-14] MEDS: PIPERACILLIN-TAZOBACTAM 3.375 GM in SODIUM CHLORIDE 0.9% 100 ML IVPB SCH (08:35)
[2024-11-14 08:44] LABS: Influenza A Not Detected (Not Detectd); Influenza B Not Detected (Not Detectd); RSV Not Detected (Not Detectd)
[2024-11-14] MEDS: ACYCLOVIR 200 MG CAP PO SCH (12:48)
[2024-11-14] MEDS: FLUCONAZOLE 100 MG TAB PO SCH (12:48)
[2024-11-14] MEDS: CIPROFLOXACIN HCL 500 MG TAB PO SCH (12:49)
--- NOTE | 2024-11-14 16:52 | P.HPIM ---
History of Present Illness H&P Date: 11/14/24 Patient is a 79-year-old male with a history of myelodysplastic syndrome who presents from oncology for admission. He was started on Inqovi in which he takes this 5 days a month and then abstains from it for 28 days. Patient reports a drop in his hemoglobin, white blood cell count. He states he has increasing abdominal bruising and thrush. He also states he feels weak and rundown. He denies any fevers, nausea, vomiting, diarrhea. Vitals on admission temperature 98.2 F, heart rate 68, respiratory rate 18, blood pressure 88/51, O2 saturation 96% on room air Labs on admission show WBCs of 1.5, hemoglobin 9.5, platelets 13 with neutrophils of 0.32. PT 10.4, INR 0.9, PTT 28.8. Sodium 132, potassium 4.9, chloride 97 bicarb 26, BUN 34, creatinine 1.34, glucose 94. Magnesium 2.3. UA was unremarkable. Viral panel is negative. Review of systems: Pertinent positives and negatives as discussed in HPI, a complete review of systems was performed and all other systems are negative. Allergies: PCP: Av Social history: Tobacco: none Alcohol: none Recreational drugs: none Travel: none Sick contacts: none Physical examination: Vital signs reviewed General: nontoxic, no distress, appears at stated age Derm: warm, dry, intact Head: atraumatic, normocephalic, symmetric Eyes: anicteric sclera Mouth: no lip lesion, mucus membranes moist Cardiovascular: S1 S2 reg, no murmur Lungs: CTA bilateral, no rhonchi, no rales, no accessory muscle use Abdominal: soft, non-tender to palpation, nondistended Extremities: No cyanosis, clubbing, or pedal edema. Neuro: Alert, Oriented to person, time and place, Gross neurological examination did not reveal any focal deficits. Cranial nerves II to XII grossly intact. Bilateral upper and lower extremity muscle strength intact and sensation intact. Psych: well appearing, appropriate affect Assessment/Plan: Patient is a 79-year-old male with a history of myelodysplastic syndrome who presents from oncology for admission. Active: Neutropenic fever Myelodysplastic syndrome with recent bone marrow biopsy Consulted heme-onc Stat dose of irradiated platelets Continue Zosyn 3.375 g every 8 hours Continue ciprofloxacin 500 mg daily Continue fluconazole 100 mg daily Continue 0.9% NS at 75 mL/h Follow-up blood culture Follow-up MRSA screening Follow-up sputum culture Thrush secondary to above Continue nystatin 4 times daily FRANKY versus CKD, unknown baseline Monitor renal function Avoid nephrotoxic agents Continue IV fluids Chronic: Hyperlipidemia Continue Lipitor 20 mg daily Chronic pain syndrome Continue Dulzura 10 3 times daily F: 0.9% NS at 75 mL/h E: Replete as needed N: Regular A: As tolerated The patient is admitted with an anticipated more than 2 midnight stay for eval uation of neutropenic fever versus MDS CODE STATUS: Full code Discussed with: Patient Anticipated discharge place: Pending clinical course Past Medical History Past Medical History: COPD, GERD/Reflux, Hyperlipidemia, Hypertension, Osteoarthritis (OA), Pneumonia, Prostate Disorder Additional Past Medical History / Comment(s): Has chronic back/neck and sciatica pain, BPH, varicose veins, MDS, pancytopenia History of Any Multi-Drug Resistant Organisms: None Reported Past Surgical History: Heart Catheterization Additional Past Surgical History / Comment(s): Right arm surgery in 1973 from major arm lacertions, colonoscopies, thrombocytopenia, "low energy level" Past Anesthesia/Blood Transfusion Reactions: No Reported Reaction Past Psychological History: Depression Additional Psychological History / Comment(s): Patient takes Celexa and it helps keep him calm. Patient lives alone. He does not drive and uses [employer] for transportation Smoking Status: Former smoker Past Alcohol Use History: None Reported Additional Past Alcohol Use History / Comment(s): Quit smoking 2003. uses tobacco pouches. 2-3 beers/week Past Drug Use History: None Reported - Past Family History Mother Family Medical History: COPD Additional Family Medical History / Comment(s): Passed at age 52 Father Family Medical History: COPD, Coronary Artery Disease (CAD), Diabetes Mellitus Additional Family Medical History / Comment(s): at age 87. Was [employer] . Medications and Allergies Home Medications Medication Instructions Recorded Confirmed Type Citalopram Hydrobromide [CeleXA] 20 mg PO DAILY 01/18/18 11/13/24 History Omeprazole 20 mg PO DAILY 01/18/18 11/13/24 History Albuterol Inhaler [Ventolin Hfa 2 puff INHALATION RT-QID PRN 09/07/21 11/13/24 History Inhaler] carvediloL [Coreg] 3.125 tab PO BID 09/07/21 11/13/24 History lisinopriL [Zestril] 10 mg PO DAILY 09/07/21 11/13/24 History Cholecalciferol [Vitamin D3 (25 25 mcg PO DAILY 06/28/24 11/13/24 History Mcg = 1000 Iu)] Doxazosin Mesylate [Cardura] 2 mg PO DAILY 06/28/24 11/13/24 History Ferrous Sulfate [Iron (65 MG 325 mg PO DAILY 06/28/24 11/13/24 History Elemental)] HYDROcodone/APAP 10-325MG [[place] 1 tab PO TID 06/28/24 11/13/24 History 10-325] Meclizine HCl 12.5 mg PO DAILY PRN 06/28/24 11/13/24 History Mirabegron [Myrbetriq] 50 mg PO DAILY 06/28/24 11/13/24 History Vibegron [Gemtesa] 75 mg PO DAILY 06/28/24 11/13/24 History Decitabine/Cedazuridine [Inqovi 35 1 tab PO DIRECTED 11/13/24 11/13/24 History mg-100 mg Tablet] Magnesium Oxide [Magnesium] 500 mg PO DAILY 11/13/24 11/13/24 History Multivitamins, Thera [Multivitamin 1 tab PO DAILY 11/13/24 11/13/24 History (formulary)] Ondansetron [Zofran] 4 - 8 mg PO Q4H PRN 11/13/24 11/13/24 History Rosuvastatin [Crestor] 10 mg PO DAILY 11/13/24 11/13/24 History Allergies Allergy/AdvReac Type Severity Reaction Status Date / Time clarithromycin [From Biaxin] Allergy purple Verified 11/13/24 16:34 blotches and skin peels Latex, Natural Rubber Allergy Rash/Hives Verified 11/13/24 16:34 Physical Exam Vitals: Vital Signs Temp Pulse Pulse Resp BP BP Pulse Ox 11/14/24 01:40 100.2 F H 93 18 118/65 93 L 11/13/24 21:16 16 11/13/24 21:00 16 11/13/24 19:35 91 18 107/72 96 11/13/24 16:55 86 20 110/63 98 11/13/24 14:16 98.2 F 68 18 88/51 96 Intake and Output 11/13/24 11/14/24 11/14/24 22:59 06:59 14:59 Intake Total 200 Output Total 300 Balance 200 -300 Intake: Oral 200 Output: Urine 300 Other: Voiding Method Toilet # Voids 0 Weight 86.183 kg Results CBC & Chem 7: 11/13/24 15:01 11/13/24 15:01 Labs: Abnormal Lab Results - Last 24 Hours (Table) 11/13/24 11/13/24 Range/Units 15:01 15:01 WBC 1.5 L (3.8-10.6) k/uL RBC 3.35 L (4.30-5.90) m/uL Hgb 9.5 L (13.0-17.5) gm/dL Hct 28.6 L (39.0-53.0) % RDW 21.4 H (11.5-15.5) % Plt Count 13 L* (150-450) k/uL Neutrophils # (Manual) 0.32 L* (1.3-7.7) k/uL Nucleated RBCs 1 H (0-0) /100 WBC Sodium 132 L (137-145) mmol/L Chloride 97 L (98-107) mmol/L BUN 34 H (9-20) mg/dL Creatinine 1.34 H (0.66-1.25) mg/dL Thrombosis Risk Factor Assmnt - Choose All That Apply Any of the Below Risk Factors Present?: No Other Risk Factors: Yes Each Risk Factor Represents 2 Points: Malignancy Each Risk Factor Represents 3 Points: Age 75 years or older Thrombosis Risk Factor Assessment Total Risk Factor Score: 5 Thrombosis Risk Factor Assessment Level: High Risk
--- NOTE | 2024-11-14 18:45 | P.CONS ---
History of Present Illness - Reason for Consult Consult date: 11/14/24 MDS Requesting physician: Jayden Saeed - Chief Complaint abnormal CBC - History of Present Illness The patient is a 79 year old male with a history of MDS< who follows with Dr. Blum. He initially was evaluated for iron deficiency anemia. He had a negative colonoscopy and he had been on oral iron.Also he had mild thrombocytopenia which has been intermittent. He initially declined bone marrow biopsy but then he agreed to proceed with it on 07/03/2024 which showed hypercelular marrow (70%),erythroid dyspoiesis,dysgranulation,left shift with 8% blasts,there is also 2% circulating blasts,consistent with MDS-IB-1. Cytogenetics,FISH showed trisomy 8,NGS showed UNX1,ASXL1 and U2AF1 mutation. Pt was recommended to start treatment with Inqovi, daily for 5 days, every 28 days. Pt met with Dr. Cifuentes at [facility], he does remember what he was told, not sure if he is a candidate for SCT. Pt f/u in clinic on 11/13/24 and is s/p 1st 5 days of inqovi earlier this month, 10/24-10/28. While on the med he reported small amount of bright red blood with hard stool once, none since. Dizziness when changing positions quickly, denies falls. CBC on 10/24/24 Hgb/Hct 11.6/33, WBC 2.97, plt 86,000. On 11/13, after 5 days of inqovi, Hgb/Hct 8.8/25.2, WBC 1.05 with ANC 172, plt 13,400. Attempted to schedule pt outpt for plt transfusion but soonest pt could get transfused was in 2 days. Pt was thus referred to ER for for plt transfusion Upon admission WBC 1.5, ANC 0.32, hemoglobin 9.5, platelets 13,000. 1 unit platelets have been ordered. UA and viral panel negative. Temperature 100.2 was noted. Zosyn was started. On exam oral thrush was noted, nystatin rinse started. Sputum and blood culture ordered. Today's visit patient reports overall feeling well but does endorse headache. Denies dysphagia but states he has had a sore throat. Review of Systems 10 point ROS is negative except as stated in the HPI Past Medical History Past Medical History: COPD, GERD/Reflux, Hyperlipidemia, Hypertension, Osteo arthritis (OA), Pneumonia, Prostate Disorder Additional Past Medical History / Comment(s): Has chronic back/neck and sciatica pain, BPH, varicose veins, MDS, pancytopenia History of Any Multi-Drug Resistant Organisms: None Reported Past Surgical History: Heart Catheterization Additional Past Surgical History / Comment(s): Right arm surgery in 1974 from major arm lacertions, colonoscopies, thrombocytopenia, "low energy level" Past Anesthesia/Blood Transfusion Reactions: No Reported Reaction Past Psychological History: Depression Additional Psychological History / Comment(s): Patient takes Celexa and it helps keep him calm. Patient lives alone. He does not drive and uses [employer] for transportation Smoking Status: Former smoker Past Alcohol Use History: None Reported Additional Past Alcohol Use History / Comment(s): Quit smoking 2003. uses to [employer] pouches. 2-3 beers/week Past Drug Use History: None Reported - Past Family History Mother Family Medical History: COPD Additional Family Medical History / Comment(s): Passed at age 52 Father Family Medical History: COPD, Coronary Artery Disease (CAD), Diabetes Mellitus Additional Family Medical History / Comment(s): at age 87. Was WW[employer] . Medications and Allergies Home Medications Medication Instructions Recorded Confirmed Type Citalopram Hydrobromide [CeleXA] 20 mg PO DAILY 01/18/18 11/13/24 History Omeprazole 20 mg PO DAILY 01/18/18 11/13/24 History Albuterol Inhaler [Ventolin Hfa 2 puff INHALATION RT-QID PRN 09/07/21 11/13/24 History Inhaler] carvediloL [Coreg] 3.125 tab PO BID 09/07/21 11/13/24 History lisinopriL [Zestril] 10 mg PO DAILY 09/07/21 11/13/24 History Cholecalciferol [Vitamin D3 (25 25 mcg PO DAILY 06/28/24 11/13/24 History Mcg = 1000 Iu)] Doxazosin Mesylate [Cardura] 2 mg PO DAILY 06/28/24 11/13/24 History Ferrous Sulfate [Iron (65 MG 325 mg PO DAILY 06/28/24 11/13/24 History Elemental)] HYDROcodone/APAP 10-325MG [[place] 1 tab PO TID 06/28/24 11/13/24 History 10-325] Meclizine HCl 12.5 mg PO DAILY PRN 06/28/24 11/13/24 History Mirabegron [Myrbetriq] 50 mg PO DAILY 06/28/24 11/13/24 History Vibegron [Gemtesa] 75 mg PO DAILY 06/28/24 11/13/24 History Decitabine/Cedazuridine [Inqovi 35 1 tab PO DIRECTED 11/13/24 11/13/24 History mg-100 mg Tablet] Magnesium Oxide [Magnesium] 500 mg PO DAILY 11/13/24 11/13/24 History Multivitamins, Thera [Multivitamin 1 tab PO DAILY 11/13/24 11/13/24 History (formulary)] Ondansetron [Zofran] 4 - 8 mg PO Q4H PRN 11/13/24 11/13/24 History Rosuvastatin [Crestor] 10 mg PO DAILY 11/13/24 11/13/24 History Allergies Allergy/AdvReac Type Severity Reaction Status Date / Time clarithromycin [From Biaxin] Allergy purple Verified 11/13/24 16:34 blotches and skin peels Latex, Natural Rubber Allergy Rash/Hives Verified 11/13/24 16:34 Physical Exam Vitals: Vital Signs Temp Pulse Pulse Resp BP BP Pulse Ox 11/14/24 08:00 98.5 F 85 15 113/64 94 L 11/14/24 01:40 100.2 F H 93 18 118/65 93 L 11/13/24 21:16 16 11/13/24 21:00 16 11/13/24 19:35 91 18 107/72 96 11/13/24 16:55 86 20 110/63 98 11/13/24 14:16 98.2 F 68 18 88/51 96 Intake and Output 11/13/24 11/14/24 11/14/24 22:59 06:59 14:59 Intake Total 200 Output Total 300 Balance 200 -300 Intake: Oral 200 Output: Urine 300 Other: Voiding Method Toilet Toilet # Voids 0 Weight 86.183 kg - Constitutional General appearance: average body habitus, no acute distress - EENT Eyes: anicteric sclerae, EOMI ENT: hearing grossly normal - Respiratory Respiratory: bilateral: CTA - Cardiovascular Rhythm: regular - Gastrointestinal General gastrointestinal: soft, no tenderness - Integumentary Integumentary: no cyanotic - Psychiatric Psychiatric: A&O x's 3 Results CBC & Chem 7: 11/13/24 15:01 11/13/24 15:01 Labs: Abnormal Lab Results - Last 24 Hours (Table) 11/13/24 11/13/24 Range/Units 15:01 15:01 WBC 1.5 L (3.8-10.6) k/uL RBC 3.35 L (4.30-5.90) m/uL Hgb 9.5 L (13.0-17.5) gm/dL Hct 28.6 L (39.0-53.0) % RDW 21.4 H (11.5-15.5) % Plt Count 13 L* (150-450) k/uL Neutrophils # (Manual) 0.32 L* (1.3-7.7) k/uL Nucleated RBCs 1 H (0-0) /100 WBC Sodium 132 L (137-145) mmol/L Chloride 97 L (98-107) mmol/L BUN 34 H (9-20) mg/dL Creatinine 1.34 H (0.66-1.25) mg/dL Assessment and Plan (1) MDS (myelodysplastic syndrome) Current Visit: Yes Status: Acute Code(s): D46.9 - MYELODYSPLASTIC SYNDROME, UNSPECIFIED SNOMED Code(s): 940886274 (2) Pancytopenia Current Visit: Yes Status: Acute Code(s): D61.818 - OTHER PANCYTOPENIA SNOMED Code(s): 165802791 Plan: MDS: -Oncology history as dictated in the HPI. S/p 1st 5 days of inqovi earlier this month, 10/24-10/28. While on the med he reported small amount of bright red blood with hard stool once, none since. Dizziness when changing positions quickly, denies falls. CBC on 10/24/24 Hgb/Hct 11.6/33, WBC 2.97, plt 86,000. On 11/13, after 5 days of inqovi, Hgb/Hct 8.8/25.2, WBC 1.05 with ANC 172, plt 13,400. Attempted to schedule pt outpt for plt transfusion but soonest pt could get transfused was in 2 days. Pt was thus referred to ER for for plt transfusion -Upon admission WBC 1.5, ANC 0.32, hemoglobin 9.5, platelets 13,000. 1 unit platelets have been ordered. -Temperature 100.2 was noted. Zosyn was started. UA and viral panel negative. Blood and sputum culture ordered -On exam oral thrush noted, nystatin rinse started. -Prophylactic abx, antifungal and antiviral started -Repeat CBC in AM Dr attests: I have seen and examined pt, performed H&P, developed impression and plan of care. Discussed with dictator. Agree with documentation, dictated as a scribe.
--- NOTE | 2024-11-14 20:33 | XR ---
EXAMINATION TYPE: XR chest 2V DATE OF EXAM: 11/14/2024 8:20 PM COMPARISON: Chest x-ray March 23, 2022 CLINICAL INDICATION: Male, 79 years old with history of Neutropenic fever, TECHNIQUE: Frontal and lateral views of the chest are obtained. FINDINGS: There is no focal air space opacity, pleural effusion, or pneumothorax seen. Mild cardiome sushila is present. The osseous structures are intact. IMPRESSION: Mild cardiomegaly without acute pulmonary process. [facility], , 11/14/2024 8:31 PM
[2024-11-14] MEDS: HYDROcodone/APAP 10-325MG 1 EACH TAB PO SCH (21:41)
[2024-11-15 09:25] LABS: African American GFR (CKD) >90 (>60 ml/min/1.73 sqM); Anion Gap 4 mmol/L; Blood Urea Nitrogen 19 mg/dL (9-20); Carbon Dioxide 28 mmol/L (22-30); Chloride 100 mmol/L (98-107); Glucose 146 mg/dL (74-99); Non-African American GFR(CKD) 83 (>60 ml/min/1.73 sqM); Potassium 4.2 mmol/L (3.5-5.1); Sodium 132 mmol/L (137-145)
[2024-11-15] MEDS: ATORVASTATIN 20 MG TAB PO SCH (09:28)
[2024-11-15] MEDS: MULTIVITAMINS, THERA 1 EACH TAB PO SCH (09:28)
[2024-11-15 12:51] LABS: Acanthocytes 2+ (None Seen); Anisocytosis (M) 2+ (None Seen); Basophils # (M) 0.01 X 10*3/uL (0.00-0.10); Elliptocytes 2+ (None Seen); Eosinophils # (M) 0 X 10*3/uL (0.04-0.35); HCT 22.8 % (39.6-50.0); HGB 7.7 g/dL (13.0-17.0); Immature Platelet Fraction 2.9 % (1.1-6.1); MCH 28.3 pg (27.0-32.0); MCHC 33.8 g/dL (32.0-37.0); MCV 83.8 FL (80.0-97.0); Monocytes # (M) 0 X 10*3/uL (0.20-1.00); NRBC Per 100 WBC 0 X 10*3/uL (0.00-0.01); Neutrophils # (M) 0.15 X 10*3/uL (1.80-7.70); Neutrophils % (M) 23 %; Platelet Count 12 X 10*3/uL (140-440); RBC 2.72 X 10*6/uL (4.40-5.60); RDW 19.4 % (11.5-14.5); Schistocytes 1+ (None Seen); WBC 0.66 X 10*3/uL (4.50-10.00)
--- NOTE | 2024-11-15 15:26 | P.PN ---
Subjective Progress Note Date: 11/15/24 Pt resting comfortably in bed. Reports overall feeling well. States he had a BM this morning and noted scant bleeding on tissue, but no blood in stool. Denies melena. S/p 1 dose plts. Plt 13, hgb 7.7, WBC 0.66, ANC 0.15. Pt afebrile Objective - Vital Signs Vital signs: Vital Signs Temp 99.4 F 11/15/24 07:14 Pulse 82 11/15/24 07:14 Resp 17 11/15/24 07:14 BP 105/56 11/15/24 07:14 Pulse Ox 95 11/15/24 07:14 FiO2 Intake & Output 11/14/24 11/15/24 11/15/24 18:59 06:59 18:59 Intake Total 1839 820 240 Output Total 300 1050 400 Balance 1539 -230 -160 Intake: Intake, IV Titration 700 Amount Piperacillin-Tazobactam 3 100 .375 gm In Sodium Chloride 0.9% 100 ml @ 25 mls/hr IVPB Q8HR [facility] Rx# :[id number] Sodium Chloride 0.9% 1, 600 000 ml @ 75 mls/hr IV . [id number] [facility] Rx#:[id number] Oral 1560 120 240 Blood Product 279 Platelet Pheresis Pas 279 Psoralen Unit [id number] Output: Urine 300 1050 400 Other: Voiding Method Toilet Toilet Urinal # Voids 2 # Bowel Movements 1 1 - Constitutional General appearance: Present: average body habitus, no acute distress - EENT Eyes: Present: anicteric sclerae, EOMI ENT: Present: hearing grossly normal - Respiratory Details: breathing is even and unlabored - Cardiovascular Details: skin warm and dry - Gastrointestinal General gastrointestinal: Present: soft. Absent: tenderness - Integumentary Integumentary: Present: pale. Absent: cyanotic - Psychiatric Psychiatric: Present: A&O x's 3 - Labs CBC & Chem 7: 11/15/24 06:24 11/15/24 08:37 Labs: Abnormal Lab Results - Last 24 Hours (Table) 11/15/24 Range/Units 08:37 Sodium 132 L (137-145) mmol/L Glucose 146 H (74-99) mg/dL Calcium 8.0 L (8.4-10.2) mg/dL Microbiology - Last 24 Hours (Table) 11/14/24 07:27 Gram Stain - Preliminary Sputum Assessment and Plan (1) MDS (myelodysplastic syndrome) Current Visit: Yes Status: Acute Code(s): D46.9 - MYELODYSPLASTIC SYNDROME, UNSPECIFIED SNOMED Code(s): 879488495 (2) Pancytopenia Current Visit: Yes Status: Acute Code(s): D61.818 - OTHER PANCYTOPENIA SNOMED Code(s): 510327799 Plan: MDS: -Oncology history as dictated in the HPI. S/p 1st 5 days of inqovi earlier this month, 10/24-10/28. While on the med he reported small amount of bright red blood with hard stool once, none since. Dizziness when changing positions quickly, denies falls. CBC on 10/24/24 Hgb/Hct 11.6/33, WBC 2.97, plt 86,000. On 11/13, after 5 days of inqovi, Hgb/Hct 8.8/25.2, WBC 1.05 with ANC 172, plt 13,400. At tempted to schedule pt outpt for plt transfusion but soonest pt could get transfused was in 2 days. Pt was thus referred to ER for for plt transfusion -Upon admission WBC 1.5, ANC 0.32, hemoglobin 9.5, platelets 13,000. S/p 1 unit platelets. Repeat CBC today, Plt 13, hgb 7.7, WBC 0.66, ANC 0.15. -States he had a BM this morning and noted scant bleeding on tissue, but no blood in stool. Denies melena. Continue to monitor -Temperature 100.2 was noted on admit, no fevers > 24hrs. Zosyn started. UA and viral panel negative. Blood and sputum cultures negative thus far -On exam oral thrush noted, nystatin rinse started. Thrush improving -Prophylactic abx, antifungal and antiviral started -Continue to monitor CBC
--- NOTE | 2024-11-15 17:08 | P.PN ---
Subjective Progress Note Date: 11/15/24 Hospital Course: Patient is a 79-year-old male with a history of myelodysplastic syndrome who presents from oncology for admission. He was started on Inqovi in which he takes this 5 days a month and then abstains from it for 28 days. Patient reports a drop in his hemoglobin, white blood cell count. He states he has increasing abdominal bruising and thrush. He also states he feels weak and rundown. He denies any fevers, nausea, vomiting, diarrhea. Vitals on admission temperature 98.2 F, heart rate 68, respiratory rate 18, blood pressure 88/51, O2 saturation 96% on room air Labs on admission show WBCs of 1.5, hemoglobin 9.5, platelets 13 with neutrophils of 0.32. PT 10.4, INR 0.9, PTT 28.8. Sodium 132, potassium 4.9, chloride 97 bicarb 26, BUN 34, creatinine 1.34, glucose 94. Magnesium 2.3. UA was unremarkable. Viral panel is negative. 11/15/2024 Patient seen and examined at bedside. No acute events overnight. Pertinent positives and negatives discussed above, a complete review of systems was performed and all the other systems were negative. Vitals Signs Reviewed. General: non toxic, no distress, appears at stated age, normal weight Derm: no unusual rashes/lesions, warm Head: atraumatic, normocephalic, symmetric Eyes: EOMI, anicteric sclera, pupils equal round reactive to light ENT: Nose and ears atraumatic Neck: No cervical lymphadenopathy, trachea midline, supple Mouth: no lip lesion, mucus membranes moist Cardiovascular: S1S2 reg, no murmur, positive dorsalis pedis pulse bilateral, no edema Lungs: Equal air entry bilaterally, no rhonchi, no rales, no accessory muscle use Abdominal: soft, nontender to palpation, no guarding Ext: muscle strength 5 out of 5 in all 4 extremities grossly, no gross muscle atrophy, no contractures, Neuro: CN II-XI grossly intact, no gross focal neuro deficits Psych: Alert, oriented, appropriate affect Data Reviewed Today: Patient Labs: WBC 0.66, platelets 12, hemoglobin 7.7. Sodium 132, potassium 4.2, chloride 100, bicarb 28, BUN 19, creatinine 0.88, glucose 146. Calcium 8. Imaging: No new imaging Assessment and Plan: Patient is a 79-year-old male with a history of myelodysplastic syndrome who presents from oncology for admission. Neutropenic fever Myelodysplastic syndrome with recent bone marrow biopsy Consulted heme-onc Stat dose of irradiated platelets Continue Zosyn 3.375 g every 8 hours Continue ciprofloxacin 500 mg daily Continue fluconazole 100 mg daily Continue 0.9% NS at 75 mL/h Follow-up MRSA screening Blood culture had no growth after 48 hours, awaiting finalization Sputum culture showed normal respiratory bindu Continue to monitor CBC Thrush secondary to above Continue nystatin 4 times daily FRANKY, resolved Monitor renal function Avoid nephrotoxic agents Continue IV fluids Chronic: Hyperlipidemia Continue Lipitor 20 mg daily Chronic pain syndrome Continue Milo 10 3 times daily F: 0.9% NS at 75 mL/h E: Replete as needed N: Regular A: As tolerated The patient is admitted with an anticipated more than 2 midnight stay for evaluation of neutropenic fever versus MDS CODE STATUS: Full code Discussed with: Patient Anticipated discharge place: Pending clinical course Objective - Vital Signs Vital signs: Vital Signs Temp 98.4 F 11/15/24 01:29 Pulse 79 11/15/24 01:29 Resp 16 11/15/24 01:29 BP 100/56 11/15/24 01:29 Pulse Ox 96 11/15/24 01:29 FiO2 Intake & Output 11/14/24 11/15/24 11/15/24 18:59 06:59 18:59 Intake Total 1839 820 Output Total 300 1050 Balance 1539 -230 Intake: Intake, IV Titration 700 Amount Piperacillin-Tazobactam 3 100 .375 gm In Sodium Chloride 0.9% 100 ml @ 25 mls/hr IVPB Q8HR [facility] Rx# :[id number] Sodium Chloride 0.9% 1, 600 000 ml @ 75 mls/hr IV . [id number] [facility] Rx#:[id number] Oral 1560 120 Blood Product 279 Platelet Pheresis Pas 279 Psoralen Unit [id number] Output: Urine 300 1050 Other: Voiding Method Toilet Toilet # Voids 2 # Bowel Movements 1 - Labs CBC & Chem 7: 11/15/24 06:24 11/15/24 08:37 Labs: Microbiology - Last 24 Hours (Table) 11/14/24 07:27 Gram Stain - Preliminary Sputum
[2024-11-16 09:42] LABS: Acanthocytes 3+ (None Seen); Anisocytosis (M) 2+ (None Seen); Basophils # (A) 0 X 10*3/uL (0.00-0.10); Basophils % (A) 0 %; Eosinophils # (A) 0 X 10*3/uL (0.04-0.35); Eosinophils % (A) 0 %; HCT 20.8 % (39.6-50.0); HGB 7.2 g/dL (13.0-17.0); Immature Grans, Automated 0 %; Immature Platelet Fraction 2.7 % (1.1-6.1); Lymphocytes # (A) 0.58 X 10*3/uL (0.90-5.00); Lymphocytes % (A) 86.6 %; MCH 29.1 pg (27.0-32.0); MCHC 34.6 g/dL (32.0-37.0); MCV 84.2 FL (80.0-97.0); Microcytosis (M) 2+ (None Seen); Monocytes # (A) 0.01 X 10*3/uL (0.20-1.00); Monocytes % (A) 1.5 %; NRBC Per 100 WBC 0 X 10*3/uL (0.00-0.01); Neutrophils # (A) 0.08 X 10*3/uL (1.80-7.70); Neutrophils % (A) 11.9 %; Platelet Count 9 X 10*3/uL (140-440); RBC 2.47 X 10*6/uL (4.40-5.60); RDW 19.7 % (11.5-14.5); Schistocytes 2+ (None Seen); Sickle Cells 2+ (None Seen); WBC 0.67 X 10*3/uL (4.50-10.00)
--- NOTE | 2024-11-16 14:09 | P.PN ---
Subjective Progress Note Date: 11/16/24 Hospital Course: Patient is a 79-year-old male with a history of myelodysplastic syndrome who presents from oncology for admission. He was started on Inqovi in which he takes this 5 days a month and then abstains from it for 28 days. Patient reports a drop in his hemoglobin, white blood cell count. He states he has increasing abdominal bruising and thrush. He also states he feels weak and rundown. He denies any fevers, nausea, vomiting, diarrhea. Vitals on admission temperature 98.2 F, heart rate 68, respiratory rate 18, blood pressure 88/51, O2 saturation 96% on room air Labs on admission show WBCs of 1.5, hemoglobin 9.5, platelets 13 with neutrophils of 0.32. PT 10.4, INR 0.9, PTT 28.8. Sodium 132, potassium 4.9, chloride 97 bicarb 26, BUN 34, creatinine 1.34, glucose 94. Magnesium 2.3. UA was unremarkable. Viral panel is negative. 11/15/2024 Patient seen and examined at bedside. No acute events overnight. Patient's platelets have dropped from 12 yesterday to 9 today. Patient will receive an additional dose of irradiated platelets. Pertinent positives and negatives discussed above, a complete review of systems was performed and all the other systems were negative. Vitals Signs Reviewed. General: non toxic, no distress, appears at stated age, normal weight Derm: no unusual rashes/lesions, warm Head: atraumatic, normocephalic, symmetric Eyes: EOMI, anicteric sclera, pupils equal round reactive to light ENT: Nose and ears atraumatic Neck: No cervical lymphadenopathy, trachea midline, supple Mouth: no lip lesion, mucus membranes moist Cardiovascular: S1S2 reg, no murmur, positive dorsalis pedis pulse bilateral, no edema Lungs: Equal air entry bilaterally, no rhonchi, no rales, no accessory muscle use Abdominal: soft, nontender to palpation, no guarding Ext: muscle strength 5 out of 5 in all 4 extremities grossly, no gross muscle atrophy, no contractures, Neuro: CN II-XI grossly intact, no gross focal neuro deficits Psych: Alert, oriented, appropriate affect Data Reviewed Today: Patient Labs: WBC 0.67, hemoglobin 7.2, platelets 9. Imaging: No new imaging Assessment and Plan: Patient is a 79-year-old male with a history of myelodysplastic syndrome who presents from oncology for admission. Neutropenic fever Myelodysplastic syndrome with recent bone marrow biopsy Consulted heme-onc Stat dose of irradiated platelets Continue Zosyn 3.375 g every 8 hours Continue ciprofloxacin 500 mg daily Continue fluconazole 100 mg daily Continue 0.9% NS at 75 mL/h Follow-up MRSA screening Blood culture had no growth after 48 hours, awaiting finalization Sputum culture showed normal respiratory bindu Continue to monitor CBC Thrush secondary to above, improving Continue nystatin 4 times daily FRANYK, resolved Monitor renal function Avoid nephrotoxic agents Continue IV fluids Chronic: Hyperlipidemia Continue Lipitor 20 mg daily Chronic pain syndrome Continue Supai 10 3 times daily F: 0.9% NS at 75 mL/h E: Replete as needed N: Regular A: As tolerated The patient is admitted with an anticipated more than 2 midnight stay for evaluation of neutropenic fever CODE STATUS: Full code Discussed with: Patient Anticipated discharge place: Pending clinical course Objective - Vital Signs Vital signs: Vital Signs Temp 99.1 F 11/16/24 07:25 Pulse 77 11/16/24 07:25 Resp 17 11/16/24 07:25 BP 103/58 11/16/24 07:25 Pulse Ox 95 11/16/24 07:25 FiO2 Intake & Output 11/15/24 11/16/24 11/16/24 18:59 06:59 18:59 Intake Total 1979 625 Output Total 402 1450 Balance 1578 -825 Intake: Intake, IV Titration 625 Amount Piperacillin-Tazobactam 3 100 .375 gm In Sodium Chloride 0.9% 100 ml @ 25 mls/hr IVPB Q8HR [facility] Rx# :[id number] Sodium Chloride 0.9% 1, 525 000 ml @ 75 mls/hr IV . [id number] [facility] Rx#:[id number] Oral 1979 Output: Urine 402 1450 Other: Voiding Method Urinal Urinal # Voids 1 # Bowel Movements 1 - Labs CBC & Chem 7: 11/16/24 04:16 11/15/24 08:37 Labs: Abnormal Lab Results - Last 24 Hours (Table) 11/15/24 11/15/24 Range/Units 06:24 08:37 WBC 0.66 A* (4.50-10.00) X 10*3/uL RBC 2.72 L (4.40-5.60) X 10*6/uL Hgb 7.7 L (13.0-17.0) g/dL Hct 22.8 L (39.6-50.0) % RDW 19.4 H (11.5-14.5) % Plt Count 12 A* (140-440) X 10*3/uL Neutrophils # (Manual) 0.15 A* (1.80-7.70) X 10*3/uL Lymphocytes # (Manual) 0.50 L (0.90-5.00) X 10*3/uL Monocytes # (Manual) 0 L (0.20-1.00) X 10*3/uL Eosinophils # (Manual) 0 L (0.04-0.35) X 10*3/uL Anisocytosis (manual) 2+ A (None Seen) Elliptocytes 2+ A (None Seen) Acanthocytes (Spur) 2+ A (None Seen) Schistocytes 1+ A (None Seen) Sodium 132 L (137-145) mmol/L Glucose 146 H (74-99) mg/dL Calcium 8.0 L (8.4-10.2) mg/dL Microbiology - Last 24 Hours (Table) 11/14/24 07:27 Gram Stain - Preliminary Sputum Sputum Culture - Preliminary 11/14/24 07:19 Blood Culture - Preliminary Blood
--- NOTE | 2024-11-16 17:53 | P.PN ---
Subjective Progress Note Date: 11/16/24 No acute events overnight. Reports overall feeling well. Denies acute bleeding episodes. Plts 9, hgb 7.2, WBC 0.67, ANC 0.08. Pt afebrile. BC and sputum culture negative thus far Objective - Vital Signs Vital signs: Vital Signs Temp 98.4 F 11/16/24 13:05 Pulse 69 11/16/24 13:05 Resp 16 11/16/24 13:05 BP 104/62 11/16/24 13:05 Pulse Ox 97 11/16/24 13:05 FiO2 Intake & Output 11/15/24 11/16/24 11/16/24 18:59 06:59 18:59 Intake Total 1979 625 Output Total 402 1450 Balance 1578 -825 Intake: Intake, IV Titration 625 Amount Piperacillin-Tazobactam 3 100 .375 gm In Sodium Chloride 0.9% 100 ml @ 25 mls/hr IVPB Q8HR [facility] Rx# :[id number] Sodium Chloride 0.9% 1, 525 000 ml @ 75 mls/hr IV . [id number] [facility] Rx#:[id number] Oral 1979 Output: Urine 402 1450 Other: Voiding Method Urinal Urinal Urinal # Voids 1 # Bowel Movements 1 - Constitutional General appearance: Present: average body habitus, no acute distress - EENT Eyes: Present: anicteric sclerae, EOMI ENT: Present: hearing grossly normal - Respiratory Details: breathing is even and unlabored - Cardiovascular Details: skin warm and dry - Integumentary Integumentary: Present: pale. Absent: cyanotic, jaundiced - Psychiatric Psychiatric: Present: A&O x's 3 - Labs CBC & Chem 7: 11/16/24 04:16 11/15/24 08:37 Labs: Abnormal Lab Results - Last 24 Hours (Table) 11/16/24 Range/Units 04:16 WBC 0.67 A* (4.50-10.00) X 10*3/uL RBC 2.47 L (4.40-5.60) X 10*6/uL Hgb 7.2 L (13.0-17.0) g/dL Hct 20.8 L (39.6-50.0) % RDW 19.7 H (11.5-14.5) % Plt Count 9 A* (140-440) X 10*3/uL Neutrophils # 0.08 A* (1.80-7.70) X 10*3/uL Lymphocytes # 0.58 L (0.90-5.00) X 10*3/uL Monocytes # 0.01 L (0.20-1.00) X 10*3/uL Eosinophils # 0 L (0.04-0.35) X 10*3/uL Anisocytosis (manual) 2+ A (None Seen) Microcytosis (manual) 2+ A (None Seen) Sickle Cells 2+ A (None Seen) Acanthocytes (Spur) 3+ A (None Seen) Schistocytes 2+ A (None Seen) Microbiology - Last 24 Hours (Table) 11/14/24 07:19 Blood Culture - Preliminary Blood 11/14/24 07:27 Gram Stain - Preliminary Sputum Sputum Culture - Preliminary Assessment and Plan (1) MDS (myelodysplastic syndrome) Current Visit: Yes Status: Acute Code(s): D46.9 - MYELODYSPLASTIC SYNDROME, UNSPECIFIED SNOMED Code(s): 944189262 (2) Pancytopenia Current Visit: Yes Status: Acute Code(s): D61.818 - OTHER PANCYTOPENIA SNOMED Code(s): 944328107 Plan: MDS: -Oncology history as dictated in the HPI. S/p 1st 5 days of inqovi earlier this month, 10/24-10/28. While on the med he reported small amount of bright red blood with hard stool once, none since. Dizziness when changing positions quickly, denies falls. CBC on 10/24/24 Hgb/Hct 11.6/33, WBC 2.97, plt 86,000. On 11/13, after 5 days of inqovi, Hgb/Hct 8.8/25.2, WBC 1.05 with ANC 172, plt 13,400. Attempted to schedule pt outpt for plt transfusion but soonest pt could get transfused was in 2 days. Pt was thus referred to ER for for plt transfusion -Upon admission WBC 1.5, ANC 0.32, hemoglobin 9.5, platelets 13,000. S/p 1 unit platelets since admit. Repeat CBC today, Plt 9, hgb 7.1, WBC 0.67, ANC 0.08. Additional dose plts ordered -Temperature 100.2 was noted on admit, no fevers > 48rs. Zosyn started. UA and viral panel negative. Blood and sputum cultures negative thus far -On exam oral thrush noted, nystatin rinse started. Thrush improving -Prophylactic antifungal and antiviral started -Continue to monitor CBC
[2024-11-17] MEDS: PIPERACILLIN-TAZOBACTAM 3.375 GM in SODIUM CHLORIDE 0.9% 100 ML IVPB SCH (03:04)
[2024-11-17 03:47] LABS: Anisocytosis Moderate; HCT 22.4 % (39.0-53.0); MCH 28.3 pg (25.0-35.0); MCHC 33.5 g/dL (31.0-37.0); MCV 84.4 fL (80.0-100.0); Mean Platelet Volume 8.3; Microcytosis Slight; Poikilocytosis Moderate; RBC 2.65 m/uL (4.30-5.90); RDW 21.4 % (11.5-15.5)
[2024-11-17 03:50] LABS: WBC 0.7 k/uL (3.8-10.6)
[2024-11-17 03:51] LABS: HGB 7.5 gm/dL (13.0-17.5); Platelet Count 15 k/uL (150-450)
[2024-11-17 04:24] LABS: African American GFR (CKD) >90 (>60 ml/min/1.73 sqM); Anion Gap 5 mmol/L; Blood Urea Nitrogen 15 mg/dL (9-20); Calcium 8.5 mg/dL (8.4-10.2); Carbon Dioxide 26 mmol/L (22-30); Chloride 99 mmol/L (98-107); Glucose 100 mg/dL (74-99); Magnesium 2.3 mg/dL (1.6-2.3); Non-African American GFR(CKD) 87 (>60 ml/min/1.73 sqM); Potassium 4.3 mmol/L (3.5-5.1); Sodium 130 mmol/L (137-145)
--- NOTE | 2024-11-17 15:41 | P.PN ---
Progress Note - Text Interval History: Patient is a 79-year-old male with a history of myelodysplastic syndrome who presents from oncology for admission. He was started on Inqovi in which he takes this 5 days a month and then abstains from it for 28 days. Patient reports a drop in his hemoglobin, white blood cell count. He states he has increasing abdominal bruising and thrush. He also states he feels weak and rundown. He denies any fevers, nausea, vomiting, diarrhea. Vitals on admission temperature 98.2 F, heart rate 68, respiratory rate 18, bl ood pressure 88/51, O2 saturation 96% on room air Labs on admission show WBCs of 1.5, hemoglobin 9.5, platelets 13 with neutrophils of 0.32. PT 10.4, INR 0.9, PTT 28.8. Sodium 132, potassium 4.9, chloride 97 bicarb 26, BUN 34, creatinine 1.34, glucose 94. Magnesium 2.3. UA was unremarkable. Viral panel is negative. 11/15/2024 Patient seen and examined at bedside. No acute events overnight. Patient's platelets have dropped from 12 yesterday to 9 today. Patient will receive an additional dose of irradiated platelets. 11/17--patient was seen and examined today. Remained afebrile, denied any issues overnight. Heart rate 79, respiratory rate 16, blood pressure 106/60, saturating 97% on room air. Blood cultures, sputum culture negative so far. WBC 0.7, hemoglobin 7.5, platelet 15 today. BMP unremarkable. Assessment and plan: MDS: Pancytopenia-- Neutropenic fever: FRANKY: Resolved Chronic pain syndrome Hyperlipidemia: Oral thrush: Plan: On presentation reported small amount of bright red blood with hard stool once, no further blood in the stool, complaint of dizziness, had a temperature of 100.2 on admission, UA and viral panel negative Chest x-ray negative Blood cultures sputum culture negative so far Status post 1 unit of packed RBCs. Continue nystatin for thrush Prophylactic antifungal and antiviral Zosyn Oncology consulted and following DVT prophylaxis: SCD Monitor vital signs and labs Labs and medication were reviewed. Continue same treatment. Further recommendations as per clinical course of patient PHYSICAL EXAMINATION: GENERAL: The patient is A&O x3, NAD HEENT: EOMI, Sclerae anicteric, Moist Mucous membranes Neck: Supple, Non tender, No JVD PULMONARY: Equal breath souds B/L, No wheezing, No crackles. CARDIOVASCULAR: S1, S2 present. No murmurs, rubs, or gallops. ABDOMEN: Soft, nontender, nondistended, normoactive bowel sounds. No guarding or rebound tenderness. MUSCULOSKELETAL: No edema, No cyanosis. No clubbing. Normal ROM. Intact peripheral pulses. NEUROLOGICAL: CN 2-12 grossly intact. No FND Skin: No Rash REVIEW OF SYSTEMS: CONSTITUTIONAL: No fever or chills. CARDIOVASCULAR: No chest pain, palpitations or syncope. PULMONARY: No shortness of breath, no cough, sore throat. GASTROINTESTINAL: No nausea, vomiting, diarrhea, abdominal pain. : No Dysuria, urgency, frequency. Extremities: No edema. NEUROLOGICAL: No headaches, no weakness, or numbness Dictation was produced using [employer] software. please excuse any grammatical, word or spelling errors.
[2024-11-18 08:47] LABS: Anisocytosis Moderate; HCT 23.8 % (39.0-53.0); MCH 28.4 pg (25.0-35.0); MCHC 33.4 g/dL (31.0-37.0); MCV 85.2 fL (80.0-100.0); Mean Platelet Volume 7.4; Microcytosis Slight; Poikilocytosis Slight; RDW 21.1 % (11.5-15.5)
[2024-11-18 08:54] LABS: Platelet Count 11 k/uL (150-450); WBC 0.6 k/uL (3.8-10.6)
[2024-11-18 10:24] LABS: Ovalocytes Present; RBC Fragments Present
--- NOTE | 2024-11-18 13:28 | P.PN ---
Subjective Progress Note Date: 11/18/24 Interval History: Patient is a 79-year-old male with a history of myelodysplastic syndrome who presents from oncology for admission. He was started on Inqovi in which he takes this 5 days a month and then abstains from it for 28 days. Patient reports a drop in his hemoglobin, white blood cell count. He states he has increasing abdominal bruising and thrush. He also states he feels weak and rundown. He denies any fevers, nausea, vomiting, diarrhea. Vitals on admission temperature 98.2 F, heart rate 68, respiratory rate 18, blood pressure 88/51, O2 saturation 96% on room air Labs on admission show WBCs of 1.5, hemoglobin 9.5, platelets 13 with neutrophils of 0.32. PT 10.4, INR 0.9, PTT 28.8. Sodium 132, potassium 4.9, chloride 97 bicarb 26, BUN 34, creatinine 1.34, glucose 94. Magnesium 2.3. UA was unremarkable. Viral panel is negative. 11/15/2024 Patient seen and examined at bedside. No acute events overnight. Patient's platelets have dropped from 12 yesterday to 9 today. Patient will receive an additional dose of irradiated platelets. 11/17--patient was seen and examined today. Remained afebrile, denied any issues overnight. Heart rate 79, respiratory rate 16, blood pressure 106/60, saturating 97% on room air. Blood cultures, sputum culture negative so far. WBC 0.7, hemoglobin 7.5, platelet 15 today. BMP unremarkable. 11/18--patient was seen and examined today. Remained afebrile, heart rate 72, respiratory rate 16, blood pressure 113/61, saturating 96% on room air. WBC 0.6, hemoglobin 8.0, platelet 11. Differential pending. Hematology following. Awaiting further recs. On Zosyn for neutropenic fever. Assessment and plan: MDS: Pancytopenia Neutropenic fever: FRANKY: Resolved Chronic pain syndrome Hyperlipidemia: Oral thrush: Plan: On presentation reported small amount of bright red blood with hard stool once, no further blood in the stool, complaint of dizziness, had a temperature of 10 0.2 on admission, UA and viral panel negative Chest x-ray negative Blood cultures sputum culture negative so far Status post 1 unit of packed RBCs. Continue nystatin for thrush Prophylactic antifungal and antiviral Zosyn Oncology consulted and following DVT prophylaxis: SCD Monitor vital signs and labs Labs and medication were reviewed. Continue same treatment. Further recommendations as per clinical course of the patient PHYSICAL EXAMINATION: GENERAL: The patient is A&O x3, NAD HEENT: EOMI, Sclerae anicteric, Moist Mucous membranes Neck: Supple, Non tender, No JVD PULMONARY: Equal breath souds B/L, No wheezing, No crackles. CARDIOVASCULAR: S1, S2 present. No murmurs, rubs, or gallops. ABDOMEN: Soft, nontender, nondistended, normoactive bowel sounds. No guarding or rebound tenderness. MUSCULOSKELETAL: No edema, No cyanosis. No clubbing. Normal ROM. Intact peripheral pulses. NEUROLOGICAL: CN 2-12 grossly intact. No FND Skin: No Rash REVIEW OF SYSTEMS: CONSTITUTIONAL: No fever or chills. CARDIOVASCULAR: No chest pain, palpitations or syncope. PULMONARY: No shortness of breath, no cough, sore throat. GASTROINTESTINAL: No nausea, vomiting, diarrhea, abdominal pain. : No Dysuria, urgency, frequency. Extremities: No edema. NEUROLOGICAL: No headaches, no weakness, or numbness Dictation was produced using [employer] dictation software. please excuse any grammatical, word or spelling errors. Objective - Vital Signs Vital signs: Vital Signs Temp 98.5 F 11/18/24 06:49 Pulse 72 11/18/24 06:49 Resp 16 11/18/24 06:49 BP 113/61 11/18/24 06:49 Pulse Ox 96 11/18/24 06:49 FiO2 Intake & Output 11/17/24 11/18/24 11/18/24 18:59 06:59 18:59 Intake Total 1435 Output Total 1875 1500 1200 Balance -440 -1500 -1200 Intake: Oral 1435 Output: Urine 1875 1500 1200 Other: Voiding Method Urinal Urinal Urinal # Bowel Movements 1 - Labs CBC & Chem 7: 11/18/24 07:28 11/17/24 03:28 Labs: Abnormal Lab Results - Last 24 Hours (Table) 11/18/24 Range/Units 07:28 WBC 0.6 L* (3.8-10.6) k/uL RBC 2.80 L (4.30-5.90) m/uL Hgb 8.0 L (13.0-17.5) gm/dL Hct 23.8 L (39.0-53.0) % RDW 21.1 H (11.5-15.5) % Plt Count 11 L* (150-450) k/uL Microbiology - Last 24 Hours (Table) 11/14/24 07:19 Blood Culture - Preliminary Blood 11/16/24 01:30 Nasal Screen MRSA/MSSA - Final Nasopharyngeal Swab
[2024-11-19 09:30] LABS: Acanthocytes 2+ (None Seen); Basophils # (A) 0 X 10*3/uL (0.00-0.10); Basophils % (A) 0 %; Eosinophils # (A) 0.01 X 10*3/uL (0.04-0.35); Eosinophils % (A) 1.5 %; HCT 21.8 % (39.6-50.0); HGB 7.3 g/dL (13.0-17.0); Immature Grans, Automated 0 %; Immature Platelet Fraction 4.8 % (1.1-6.1); Lymphocytes # (A) 0.64 X 10*3/uL (0.90-5.00); Lymphocytes % (A) 94.1 %; MCH 28.2 pg (27.0-32.0); MCHC 33.5 g/dL (32.0-37.0); MCV 84.2 FL (80.0-97.0); Monocytes # (A) 0.02 X 10*3/uL (0.20-1.00); Monocytes % (A) 2.9 %; NRBC Per 100 WBC 0 X 10*3/uL (0.00-0.01); Neutrophils # (A) 0.01 X 10*3/uL (1.80-7.70); Neutrophils % (A) 1.5 %; Platelet Count 6 X 10*3/uL (140-440); RBC 2.59 X 10*6/uL (4.40-5.60); RDW 18.9 % (11.5-14.5); Schistocytes 2+ (None Seen); WBC 0.68 X 10*3/uL (4.50-10.00)
--- NOTE | 2024-11-19 13:49 | P.PN ---
Subjective Interval History: Patient is a 79-year-old male with a history of myelodysplastic syndrome who presents from oncology for admission. He was started on Inqovi in which he takes this 5 days a month and then abstains from it for 28 days. Patient rep orts a drop in his hemoglobin, white blood cell count. He states he has increasing abdominal bruising and thrush. He also states he feels weak and rundown. He denies any fevers, nausea, vomiting, diarrhea. Vitals on admission temperature 98.2 F, heart rate 68, respiratory rate 18, blood pressure 88/51, O2 saturation 96% on room air Labs on admission show WBCs of 1.5, hemoglobin 9.5, platelets 13 with neutrophils of 0.32. PT 10.4, INR 0.9, PTT 28.8. Sodium 132, potassium 4.9, ch loride 97 bicarb 26, BUN 34, creatinine 1.34, glucose 94. Magnesium 2.3. UA was unremarkable. Viral panel is negative. 11/15/2024 Patient seen and examined at bedside. No acute events overnight. Patient's platelets have dropped from 12 yesterday to 9 today. Patient will receive an additional dose of irradiated platelets. 11/17--patient was seen and examined today. Remained afebrile, denied any issues overnight. Heart rate 79, respiratory rate 16, blood pressure 106/60, saturating 97% on room air. Blood cultures, sputum culture negative so far. WBC 0.7, hemoglobin 7.5, platelet 15 today. BMP unremarkable. 11/18--patient was seen and examined today. Remained afebrile, heart rate 72, respiratory rate 16, blood pressure 113/61, saturating 96% on room air. WBC 0.6, hemoglobin 8.0, platelet 11. Differential pending. Hematology following. Awaiting further recs. On Zosyn for neutropenic fever. 11/19--patient was seen and examined today. Patient remained afebrile, heart rate 66, respiratory rate 18, blood pressure 97/56, saturating 97% on room air. WBC 0.68 hemoglobin 7.3 platelets 6. Absolute neutrophils 0.01. Patient given 1 unit of platelets today. Will continue monitor closely for sign or symptom of bleeding. Will continue monitor CBC with differential. Hematology on board and following. Will continue Zosyn. Assessment and plan: MDS: Pancytopenia Neutropenic fever: FRANKY: Resolved Chronic pain syndrome Hyperlipidemia: Oral thrush: Plan: On presentation reported small amount of bright red blood with hard stool once, no further blood in the stool, complaint of dizziness, had a temperature of 100.2 on admission, UA and viral panel negative Chest x-ray negative Blood cultures sputum culture negative so far Status post 3 units of platelets so far. Continue nystatin for thrush Prophylactic antifungal and antiviral Zosyn Oncology consulted and following DVT prophylaxis: SCD Monitor vital signs and labs Labs and medication were reviewed. Continue same treatment. Further recommendations as per clinical course of the patient PHYSICAL EXAMINATION: GENERAL: The patient is A&O x3, NAD HEENT: EOMI, Sclerae anicteric, Moist Mucous membranes Neck: Supple, Non tender, No JVD PULMONARY: Equal breath souds B/L, No wheezing, No crackles. CARDIOVASCULAR: S1, S2 present. No murmurs, rubs, or gallops. ABDOMEN: Soft, nontender, nondistended, normoactive bowel sounds. No guarding or rebound tenderness. MUSCULOSKELETAL: No edema, No cyanosis. No clubbing. Normal ROM. Intact peripheral pulses. NEUROLOGICAL: CN 2-12 grossly intact. No FND Skin: No Rash REVIEW OF SYSTEMS: CONSTITUTIONAL: No fever or chills. CARDIOVASCULAR: No chest pain, palpitations or syncope. PULMONARY: No shortness of breath, no cough, sore throat. GASTROINTESTINAL: No nausea, vomiting, diarrhea, abdominal pain. : No Dysuria, urgency, frequency. Extremities: No edema. NEUROLOGICAL: No headaches, no weakness, or numbness Dictation was produced using [employer] dictation software. please excuse any grammatical, word or spelling errors. Objective - Vital Signs Vital signs: Vital Signs Temp 97.6 F 11/19/24 11:49 Pulse 66 11/19/24 11:49 Resp 18 11/19/24 11:49 BP 97/56 11/19/24 11:49 Pulse Ox 97 11/19/24 11:49 FiO2 Intake & Output 11/18/24 11/19/24 11/19/24 18:59 06:59 18:59 Intake Total 1422 575 Output Total 1775 2200 1050 Balance -353 -1625 -1050 Intake: Intake, IV Titration 575 Amount Piperacillin-Tazobactam 3 200 .375 gm In Sodium Chloride 0.9% 100 ml @ 25 mls/hr IVPB Q8H [facility] Rx#: [id number] Sodium Chloride 0.9% 1, 375 000 ml @ 75 mls/hr IV . [id number] [facility] Rx#:[id number] Oral 1422 Output: Urine 1775 2200 1050 Other: Voiding Method Urinal Urinal Urinal # Voids 3 - Labs CBC & Chem 7: 11/19/24 05:14 11/17/24 03:28 Labs: Abnormal Lab Results - Last 24 Hours (Table) 11/19/24 Range/Units 05:14 WBC 0.68 A* (4.50-10.00) X 10*3/uL RBC 2.59 L (4.40-5.60) X 10*6/uL Hgb 7.3 L (13.0-17.0) g/dL Hct 21.8 L (39.6-50.0) % RDW 18.9 H (11.5-14.5) % Plt Count 6 A* (140-440) X 10*3/uL Neutrophils # 0.01 A* (1.80-7.70) X 10*3/uL Lymphocytes # 0.64 L (0.90-5.00) X 10*3/uL Monocytes # 0.02 L (0.20-1.00) X 10*3/uL Eosinophils # 0.01 L (0.04-0.35) X 10*3/uL Acanthocytes (Spur) 2+ A (None Seen) Schistocytes 2+ A (None Seen) Microbiology - Last 24 Hours (Table) 11/14/24 07:19 Blood Culture - Final Blood
--- NOTE | 2024-11-19 15:41 | P.PN ---
Subjective Progress Note Date: 11/19/24 No acute events overnight. Reports overall feeling well, anxious to get home. Denies acute bleeding episodes. Plts 6, hgb 7.3, WBC 0.68, ANC 0.01. 1 dose platelets ordered. Pt afebrile. BC and sputum culture negative. Continues Zosyn Objective - Vital Signs Vital signs: Vital Signs Temp 97.6 F 11/19/24 11:49 Pulse 66 11/19/24 11:49 Resp 18 11/19/24 11:49 BP 97/56 11/19/24 11:49 Pulse Ox 97 11/19/24 11:49 FiO2 Intake & Output 11/18/24 11/19/24 11/19/24 18:59 06:59 18:59 Intake Total 1422 575 Output Total 1775 2200 650 Balance -353 -5486 -477 Intake: Intake, IV Titration 575 Amount Piperacillin-Tazobactam 3 200 .375 gm In Sodium Chloride 0.9% 100 ml @ 25 mls/hr IVPB Q8H [facility] Rx#: [id number] Sodium Chloride 0.9% 1, 375 000 ml @ 75 mls/hr IV . [id number] [facility] Rx#:[id number] Oral 1422 Output: Urine 1770 2200 650 Other: Voiding Method Urinal Urinal Urinal # Voids 3 - Constitutional General appearance: Present: average body habitus, no acute distress - EENT Eyes: Present: anicteric sclerae, EOMI ENT: Present: hearing grossly normal - Respiratory Details: breathing is even and unlabored - Cardiovascular Details: skin warm and dry - Gastrointestinal General gastrointestinal: Present: soft. Absent: tenderness - Integumentary Integumentary: Present: pale. Absent: cyanotic - Neurologic Neurologic: Present: CNII-XII intact - Psychiatric Psychiatric: Present: A&O x's 3 - Labs CBC & Chem 7: 11/19/24 05:14 11/17/24 03:28 Labs: Abnormal Lab Results - Last 24 Hours (Table) 11/19/24 Range/Units 05:14 WBC 0.68 A* (4.50-10.00) X 10*3/uL RBC 2.59 L (4.40-5.60) X 10*6/uL Hgb 7.3 L (13.0-17.0) g/dL Hct 21.8 L (39.6-50.0) % RDW 18.9 H (11.5-14.5) % Plt Count 6 A* (140-440) X 10*3/uL Neutrophils # 0.01 A* (1.80-7.70) X 10*3/uL Lymphocytes # 0.64 L (0.90-5.00) X 10*3/uL Monocytes # 0.02 L (0.20-1.00) X 10*3/uL Eosinophils # 0.01 L (0.04-0.35) X 10*3/uL Acanthocytes (Spur) 2+ A (None Seen) Schistocytes 2+ A (None Seen) Microbiology - Last 24 Hours (Table) 11/14/24 07:19 Blood Culture - Final Blood Assessment and Plan (1) MDS (myelodysplastic syndrome) Current Visit: Yes Status: Acute Code(s): D46.9 - MYELODYSPLASTIC SYNDROME, UNSPECIFIED SNOMED Code(s): 052562918 (2) Pancytopenia Current Visit: Yes Status: Acute Code(s): D61.818 - OTHER PANCYTOPENIA SNOMED Code(s): 421223853 Plan: MDS: -Oncology history as dictated in the HPI. S/p 1st 5 days of inqovi earlier this month, 10/24-10/28. While on the med he reported small amount of bright red blood with hard stool once, none since. Dizziness when changing positions quickly, denies falls. CBC on 10/24/24 Hgb/Hct 11.6/33, WBC 2.97, plt 86,000. On 11/13, after 5 days of inqovi, Hgb/Hct 8.8/25.2, WBC 1.05 with ANC 172, plt 13,400. Attempted to schedule pt outpt for plt transfusion but soonest pt could get tra nsfused was in 2 days. Pt was thus referred to ER for for plt transfusion -Upon admission WBC 1.5, ANC 0.32, hemoglobin 9.5, platelets 13,000. S/p 1 unit platelets since admit. Repeat CBC today, Plt 9, hgb 7.1, WBC 0.67, ANC 0.08. Additional dose plts ordered -Temperature 100.2 was noted on admit, no fevers > 72hrs. Continues on zosyn. UA and viral panel negative. Blood and sputum cultures negative -On exam oral thrush noted, nystatin rinse started. Thrush improved -Prophylactic antifungal and antiviral started -Today, Plts 6, hgb 7.3, WBC 0.68, ANC 0.01. Additional dose platelets ordered. Denies episodes of acute bleeding -Continue to monitor CBC Discussed case with admitting team. CBC recheck in AM. If pt stable pt is cleared for discharge from hem/onc standpoint. Clinic f/u and lab encounters will be scheduled upon discharge
[2024-11-20 08:03] VITALS: BP 96/55; PULSE 73; RESP 19; TEMP 98.1
[2024-11-20 12:06] LABS: Acanthocytes 3+ (None Seen); Anisocytosis (M) 3+ (None Seen); Basophils # (A) 0 X 10*3/uL (0.00-0.10); Basophils % (A) 0 %; Eosinophils # (A) 0.01 X 10*3/uL (0.04-0.35); Eosinophils % (A) 1.2 %; HCT 20.7 % (39.6-50.0); HGB 7.1 g/dL (13.0-17.0); Immature Grans, Automated 0 %; Immature Platelet Fraction 1.1 % (1.1-6.1); Lymphocytes # (A) 0.78 X 10*3/uL (0.90-5.00); Lymphocytes % (A) 96.3 %; MCH 28.6 pg (27.0-32.0); MCHC 34.3 g/dL (32.0-37.0); MCV 83.5 FL (80.0-97.0); Microcytosis (M) 3+ (None Seen); Monocytes # (A) 0.01 X 10*3/uL (0.20-1.00); Monocytes % (A) 1.2 %; NRBC Per 100 WBC 0 X 10*3/uL (0.00-0.01); Neutrophils # (A) 0.01 X 10*3/uL (1.80-7.70); Neutrophils % (A) 1.3 %; Platelet Count 13 X 10*3/uL (140-440); RBC 2.48 X 10*6/uL (4.40-5.60); Schistocytes 1+ (None Seen); Sickle Cells 2+ (None Seen); WBC 0.81 X 10*3/uL (4.50-10.00)
--- NOTE | 2024-11-20 14:27 | P.PN ---
Subjective Progress Note Date: 11/20/24 No acute events overnight. Reports overall feeling well, anxious to get home. Denies acute bleeding episodes. Plts 13, hgb 7.1, WBC 0.81, ANC 0.01. S/p 3 doses platelets since admit Objective - Vital Signs Vital signs: Vital Signs Temp 98.1 F 11/20/24 07:18 Pulse 73 11/20/24 07:18 Resp 19 11/20/24 07:18 BP 96/55 11/20/24 07:18 Pulse Ox 95 11/20/24 07:18 FiO2 Intake & Output 11/19/24 11/20/24 11/20/24 18:59 06:59 18:59 Intake Total 336 1875 240 Output Total 2100 775 550 Balance -1764 1100 -310 Intake: Intake, IV Titration 1875 Amount Piperacillin-Tazobactam 3 300 .375 gm In Sodium Chloride 0.9% 100 ml @ 25 mls/hr IVPB Q8H [facility] Rx#: [id number] Sodium Chloride 0.9% 1, 1575 000 ml @ 75 mls/hr IV . [id number] [facility] Rx#:[id number] Oral 240 Blood Product 336 Platelet Pheresis Pas 336 Psoralen Unit [id number] Output: Urine 2100 775 550 Other: Voiding Method Urinal Urinal - Constitutional General appearance: Present: average body habitus, no acute distress - EENT Eyes: Present: anicteric sclerae, EOMI ENT: Present: hearing grossly normal - Respiratory Details: breathing is even and unlabored - Cardiovascular Details: skin warm and dry - Integumentary Integumentary: Present: pale. Absent: cyanotic - Psychiatric Psychiatric: Present: A&O x's 3 - Labs CBC & Chem 7: 11/20/24 06:27 11/17/24 03:28 Labs: Abnormal Lab Results - Last 24 Hours (Table) 11/20/24 Range/Units 06:27 WBC 0.81 A* (4.50-10.00) X 10*3/uL RBC 2.48 L (4.40-5.60) X 10*6/uL Hgb 7.1 L (13.0-17.0) g/dL Hct 20.7 L (39.6-50.0) % RDW 19.0 H (11.5-14.5) % Plt Count 13 A* (140-440) X 10*3/uL Neutrophils # 0.01 A* (1.80-7.70) X 10*3/uL Lymphocytes # 0.78 L (0.90-5.00) X 10*3/uL Monocytes # 0.01 L (0.20-1.00) X 10*3/uL Eosinophils # 0.01 L (0.04-0.35) X 10*3/uL Anisocytosis (manual) 3+ A (None Seen) Microcytosis (manual) 3+ A (None Seen) Sickle Cells 2+ A (None Seen) Acanthocytes (Spur) 3+ A (None Seen) Schistocytes 1+ A (None Seen) Microbiology - Last 24 Hours (Table) 11/14/24 07:19 Blood Culture - Final Blood Assessment and Plan (1) MDS (myelodysplastic syndrome) Current Visit: Yes Status: Acute Code(s): D46.9 - MYELODYSPLASTIC SYNDROME, UNSPECIFIED SNOMED Code(s): 175053039 (2) Pancytopenia Current Visit: Yes Status: Acute Code(s): D61.818 - OTHER PANCYTOPENIA SNOMED Code(s): 825047039 Plan: MDS: -Oncology history as dictated in the HPI. S/p 1st 5 days of inqovi earlier this month, 10/24-10/28. While on the med he reported small amount of bright red blood with hard stool once, none since. Dizziness when changing positions quickly, denies falls. CBC on 10/24/24 Hgb/Hct 11.6/33, WBC 2.97, plt 86,000. On 11/13, after 5 days of inqovi, Hgb/Hct 8.8/25.2, WBC 1.05 with ANC 172, plt 13,400. Attempted to schedule pt outpt for plt transfusion but soonest pt could get transfused was in 2 days. Pt was thus referred to ER for for plt transfusion -S/p 3 doses platelets since admit. Repeat CBC today, Plt 13, hgb 7.1, WBC 0.81, ANC 0.01. Denies episodes of acute bleeding -Temperature 100.2 was noted on admit, no fevers > 72hrs. Continues on zosyn. UA and viral panel negative. Blood and sputum cultures negative -On exam oral thrush noted, nystatin rinse started. Thrush improved -Prophylactic antifungal and antiviral started -Continue to monitor CBC Discussed case with admitting team. Patient is cleared for discharge from hem/onc standpoint once cleared by admitting team and other consulted medical specialities. Clinic f/u and lab encounters for CBC rechecks have been scheduled Prophylactic antifungal, antibiotic, and antiviral has been sent to pharmacy from clinic
== END 2024-11-20 14:51 | disposition home or self-care (01) | DRG 809 ==
LOC: EC 14:11 → INTOOBSV 16:14 → 5NMEDONC 16:14 → OBSVTOIN 16:15 → 5NMEDONC 17:51
PROVIDERS: ADMIT Internal Medicine; ATTEND Internal Medicine
PROC: 30233R1 Transfusion of Nonautologous Platelets into Peripheral Vein, Percutaneous Approach (ICD-10-PCS; principal; 2024-11-14)
DX: D70.9 Neutropenia, unspecified (principal); B37.0 Candidal stomatitis; D61.818 Other pancytopenia; N17.9 Acute kidney failure, unspecified; D46.9 Myelodysplastic syndrome, unspecified; J44.9 Chronic obstructive pulmonary disease, unspecified; I10 Essential (primary) hypertension; F32.A Depression, unspecified; R50.81 Fever presenting with conditions classified elsewhere; E78.5 Hyperlipidemia, unspecified; K21.9 Gastro-esophageal reflux disease without esophagitis; G89.4 Chronic pain syndrome; M54.30 Sciatica, unspecified side; N40.0 Benign prostatic hyperplasia without lower urinary tract symptoms; I83.90 Asymptomatic varicose veins of unspecified lower extremity; Z79.891 Long term (current) use of opiate analgesic; Z79.899 Other long term (current) drug therapy; Z87.891 Personal history of nicotine dependence; Z88.1 Allergy status to other antibiotic agents; Z91.040 Latex allergy status
CPT/HCPCS: 36415; 71046; 80048; 80053; 81003; 83735; 85025; 85610; 85730; 86850; 86900; 86901; 87040; 87070; 87205; 87636; 96360; 96361; 99284